=== PATIENT | male | born 1950 | race Caucasian/White ===

== ENCOUNTER 2017-05-24 01:21 | Inpatient (IN) ==
[2017-05-24] MEDS ORDERED: ONDANSETRON 4 MG/2 ML VIAL IV STA (02:04)
[2017-05-24] MEDS ORDERED: methylPREDNISolone SOD SUC 125 MG/2 ML VIAL IV STA (02:04)
[2017-05-24] MEDS ORDERED: ALBUTEROL/IPRATROPIUM 3 ML NEB RESP TX STA (02:04)
[2017-05-24] MEDS ORDERED: ASPIRIN 325 MG TABLET PO STA (02:04)
[2017-05-24] MEDS ORDERED: ASPIRIN 325 MG TABLET ONE (02:08)
[2017-05-24] MEDS ORDERED: ONDANSETRON 4 MG/2 ML VIAL ONE (02:08)
[2017-05-24] MEDS ORDERED: methylPREDNISolone SOD SUC 125 MG/2 ML VIAL ONE (02:09)
--- NOTE | 2017-05-24 02:12 | Emergency Department Note ---
IAnkur Emily, am scribing for, and in the presence of, Cheikh Veloz MD 02: 08. Magdiel Goldberg Charles R, MD, personally performed the services described in this documentation, ascribed by Muna Pascual in my presence, and it is both accurate and complete . Arrival - Arrival Limitations: No Limitations Source: Patient Time Seen by Provider: 05/24/17 01:32 - History of Present Illness HPI Narrative: Pt is a 66 y/o male who was transferred from [facility] for further evaluation of SOB that has gradually worsened over two weeks. Pt reports past and Saturday got worse and drained energy. Pt saw Dr. Vazquez on Saturday and dx with heart failure and immediately set up with appointment for Dr. Singh yesterday. Pt notes having mild chest pain yesterday with SANTIAGO while walking around trying to find the office. Pt was put on Coreg with Lasix. Pt denies having chest pain today. 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 Pt has associated sxs of orthopnea. Pt states his decline in breathing started two weeks ago and thought it was PNA. Pt stopped smoking 2 weeks when dyspnea started. Onset (ago): week(s) Consistency: constant Severity: moderate Severity scale (1-10): 6 Quality: fullness Allergies/Adverse Reactions: Allergies Allergy/AdvReac Type Severity Reaction Status Date / Time No Known Allergies Allergy Verified 05/24/17 01:32 Home Medications: Home Medications Medication Instructions Recorded Confirmed Type Carvedilol 12.5 mg PO DAILY 05/24/17 05/24/17 History Furosemide Tab [Lasix Tab] 20 mg PO DAILY 05/24/17 05/24/17 History Lisinopril 5 mg PO DAILY 05/24/17 05/24/17 History Nitroglycerin 0.4 mg SL DIRECTED PRN 05/24/17 05/24/17 History amLODIPine [Norvasc] 5 mg PO DAILY 05/24/17 05/24/17 History metFORMIN [Glucophage] 500 mg PO BID W/MEALS 05/24/17 05/24/17 History Review of System - Review of System 12 point system: reviewed and no additional remarkable complaints except as stated - Review of System Constitutional: Present: weakness (drained energy; tired). Absent: fever Respiratory: Present: respiratory distress. Absent: cough Cardiovascular: Present: chest pain (none today), dyspnea on exertion, orthopnea. Absent: syncope Gastrointestinal: Absent: abdominal pain, nausea, vomiting Musculoskeletal: Absent: arm pain, neck pain Skin: Absent: rash Neurological: Absent: headache Medical,Surgical,& Family Hx - Family History Family History: noncontributory - Social History Smoking Status: Current some day smoker (stopped smoking 2 weeks ago) Frequency of Alcohol Use: None Type of Drug Use: None Marital Status: Single Lives With:: Alone Functional capacity: independent ambulation Exam Vital Signs: Vital Signs Temperature 98.4 F 05/24/17 01:21 Pulse Rate 99 H 05/24/17 01:21 Respiratory Rate 20 05/24/17 01:21 Blood Pressure 118/89 05/24/17 01:21 O2 Sat by Pulse Oximetry 92 L 05/24/17 01:21 - General General appearance: alert, in no apparent distress - Head Head exam: Present: atraumatic, normocephalic - Eye Eye exam: Present: PERRL, EOMI - ENT ENT exam: Present: mucous membranes moist. Absent: mucous membranes dry - Neck Neck exam: Present: full ROM, trachea midline - Chest Chest inspection: Present: symmetric chest wall rise, other (barreled chest) - Respiratory Respiratory exam: Present: rales (bibasilar rales), wheezes, other (SOB after a minute of talking, stops to take deep inspiration). Absent: normal lung sounds bilaterally (not moving much air) - Cardiovascular Cardiovascular exam: Present: regular rate, normal rhythm, normal heart sounds. Absent: JVD - Extremities Exam Extremities exam: Present: full ROM. Absent: tenderness, pedal edema - Neurological Exam Neurological exam: Present: alert, oriented X3, CN II-XII intact. Absent: motor sensory deficit - Psychiatric Psychiatric exam: Present: normal affect, normal mood - Skin Skin exam: Present: warm, dry Course - Consultations Consultation #1: Hospitalist will admit patient Time: 02:12 Results - Labs Lab Results: I have reviewed the patients labs Labs: All labs from previous facility Critical Care Time Critical Care Time: Yes Total Critical Care Time: 30 Disposition Clinical Impression: Congestive heart failure, Acute exacerbation of chronic obstructive airways disease Case discussed with: patient Disposition: Still a Patient Condition: Guarded Time of Disposition: :12
[2017-05-24 02:46] LABS: Basophils % 0.2 % (0.0-0.8); Eosinophils % 0.3 % (0.00-10.9); Hematocrit 41.5 VOL% (42.0-52.0); Hemoglobin 14.3 GM/DL (14.0-18.0); Immature Granulocytes % 0.3 %; Immature Granulocytes Absolute 0.04 #; Lymphocytes # 1.2 10*3/uL (1.4-4.0); Lymphocytes % 10.4 % (21.2-54.2); Mean Corpuscular HGB Conc 34.5 GM/DL (32-36); Mean Corpuscular Hemoglobin 30 PG (27-34); Mean Corpuscular Volume 87.9 FL (87-102); Mean Platelet Volume 9.6 FL (9.6-12.0); Monocytes # 1.3 10*3/uL (0.11-0.8); Monocytes % 11.2 % (1.7-12.7); Neutrophils # 8.9 10*3/uL (1.4-7.4); Neutrophils % 77.6 % (38.7-73.9); Platelet Count 300 T/CUMM (130-400); Red Blood Count 4.72 MC/CUMM (3.8-5.5); White Blood Count 11.4 T/CUMM (4-12)
[2017-05-24 03:20] LABS: Albumin 2.9 G/DL (3.4-5.0); Bilirubin,Total 1.1 MG/DL (0.2-1.0); Calcium 8.8 MG/DL (8.5-10.1); Magnesium 1.8 MG/DL (1.8-2.4); Osmolality,Calculated 265.8 MOS/KG (273-304); Potassium 3.8 MMOL/L (3.5-5.1); Total Protein 6.9 G/DL (6.4-8.3)
[2017-05-24 03:24] LABS: Troponin I Only 0.067 NG/ML (0.00-0.045)
[2017-05-24] MEDS ORDERED: ONDANSETRON 4 MG/2 ML VIAL IV PRN (04:13)
[2017-05-24] MEDS ORDERED: NICOTINE 21 MG/24 HR PATCH TRANSDERM PRN (04:13)
[2017-05-24] MEDS ORDERED: DEXTROSE 50% 25 GM/50 ML SYRINGE IV PRN (04:13)
[2017-05-24] MEDS ORDERED: NITROGLYCERIN SL 0.4 MG TABLET SL PRN (04:13)
[2017-05-24] MEDS ORDERED: ALBUTEROL/IPRATROPIUM 3 ML NEB RESP TX PRN (04:13)
[2017-05-24] MEDS ORDERED: GLUCAGON 1 MG VIAL IM PRN (04:13)
[2017-05-24] MEDS ORDERED: MORPHINE 2 MG/1 ML SYRINGE IV PRN (04:13)
[2017-05-24] MEDS ORDERED: SODIUM CHLORIDE 0.9% 1,000 ML IV SCH (04:13)
--- NOTE | 2017-05-24 05:03 | Hospitalist History & Physical ---
Assessment and Plan (1) Congestive heart failure Status: Acute Assessment and plan: Admit to hospitalist services. Telemetry Consult cardiology. Recheck BNP, CBC, and CMP in a.m. Lipid panel in a.m. Magnesium level in a.m. Continue home blood pressure medications. See below. Aspirin 325 mg PO daily. This patient is a full code. Current Visit: Yes (2) Acute exacerbation of chronic obstructive airways disease Status: Acute Assessment and plan: O2 per unit protocol. DuoNeb Q4 hours PRN. Solumedrol 40 mg IV Q8 hours. Nicotine patch. Current Visit: Yes (3) Hypertension Status: Chronic Assessment and plan: Coreg 12.5 mg PO daily. Lisinopril 5 mg PO daily. Amlodipine 5 mg PO daily. Nitroglycerin 0.4 mg SL [id number] PRN. Current Visit: Yes (4) Diabetes mellitus Status: Chronic Assessment and plan: Accuchecks ACHS. SSI ACHS. Metformin 500 mg PO twice daily. Recheck CMP in a.m. Current Visit: Yes (5) DVT prophylaxis Status: Acute Assessment and plan: Lovenox 40 mg SQ daily. Current Visit: Yes History of Present Illness Chief complaint: Dyspnea History of present illness: Mr. Mcneil is a 66 year old male with a history of HTN, NIDDM, CABG, and CHF presented to the ED with worsening lethargy, malaise, dyspnea and shortness of breath x 2 weeks. He reports presenting to his PCP on Saturday of this week where he was newly diagnosed with CHF. He was seen Dr. Singh yesterday and was started on lasix and coreg. Today his dyspnea is much worse and he reports being unable to sleep due to feelings of "smothering". He also reports that he quit smoking 2 weeks ago due to the severity of his symptoms. Hospitalist services were consulted for further evaluation and treatment, and the patient will be admitted to the telemetry unit. Home Medications Medication Instructions Recorded Confirmed Type Carvedilol 12.5 mg PO DAILY 05/24/17 05/24/17 History Furosemide Tab [Lasix Tab] 20 mg PO DAILY 05/24/17 05/24/17 History Lisinopril 5 mg PO DAILY 05/24/17 05/24/17 History Nitroglycerin 0.4 mg SL DIRECTED PRN 05/24/17 05/24/17 History amLODIPine [Norvasc] 5 mg PO DAILY 05/24/17 05/24/17 History metFORMIN [Glucophage] 500 mg PO BID W/MEALS 05/24/17 05/24/17 History Allergies Allergy/AdvReac Type Severity Reaction Status Date / Time No Known Allergies Allergy Verified 05/24/17 01:32 Medical,Surgical,& Family Hx - Medical History Cardio: History of: CHF, Hypertension, Cardiovascular Problems Neurology: No history of: Cerebrovascular Accident, Seizures, TIA HEENT: No history of: Ear Problem, Eye Problem Endocrine: History of: Diabetes Mellitus (NIDDM) Respiratory: No history of: Asthma, COPD Renal: No history of: Renal Problems Genitourinary: No history of: Problems Gastrointestinal: No history of: GI Problems Musculoskeletal: No history of: Back/Neck Problems, Musculoskeletal Problems Hematology: No history of: Anemia, Bleeding Problems, Clotting Problems Other: No history of: Cancer - Surgical History Cardiac Surgeries: Sugical HX of: Cardiac Surgery (bypass 19 years ago) Thoracic Surgeries: Patient denies;: Organ Transplant - Family History Family History: Reports;: Family Cancer, Family Diabetes (mother), Family Heart Disease (father), Family Hypertension (father) - Social History Smoking Status: Former smoker (reports quitting 2 weeks ago due to severity of symtoms.) Have you smoked in the last 12 months: Yes Frequency of Alcohol Use: None Type of Drug Use: None Marital Status: Lives With:: Alone Functional capacity: independent ambulation 12 point system: reviewed and no additional remarkable complaints except as stated - Constitutional Constitutional: Present: lethargy, malaise. Absent: chills, fever(s) - EENT Eyes: Absent: blurry vision, diplopia, loss of vision Ears: Absent: decreased hearing, ear discharge, ear pain Nose, mouth and throat: Absent: nasal congestion, sore throat - Cardiovascular Cardiovascular: Present: chest pain with activity, dyspnea, orthopnea. Absent: chest pain at rest, edema, radiating jaw, neck or arm pain, lightheadedness, palpitations - Respiratory Respiratory: Present: dyspnea. Absent: cough, wheezing - Gastrointestinal Gastrointestinal: Present: nausea. Absent: abdominal pain, vomiting - Genitourinary Genitourinary: Absent: dysuria, nocturia, urinary frequency - Musculoskeletal Musculoskeletal: Absent: arthralgias, joint swelling, muscle weakness, myalgias - Neurological Neurological: Absent: dizziness, numbness, paresthesias, syncope - Psychiatric Psychiatric: Absent: anxiety, depression - Endocrine Endocrine: Absent: polydipsia, polyphagia, polyuria - Hematologic/Lymphatic Hematologic/Lymphatic: Absent: easy bleeding, easy bruising Exam - Constitutional Vitals: Period Temp Pulse Resp BP Sys/Valladares Pulse Ox Last 24 Hr 98.4 F-98.4 F 86-99 16-20 112-118/85-89 92-99 Exam: Constitutional System: Afebrile. Awake, alert and oriented x 3. Mild distress. No tremulousness. Head: Normocephalic, atraumatic. Ears, Nose and Throat System: No pain or tenderness. No epistaxis or discharge Eyes System: Pupils equal, round, and reactive. Extraocular muscles intact. Neck: Supple, without adenopathy, No jugular venous distention. No thyromegaly, neck mass, or prior surgery apparent. Respiratory System: Diminished throughout. Posterior rhonchi and fine rales throughout. Cardiovascular System: Heart with regular rate and rhythm. No murmur. GI System: Abdomen soft, nontender. Normo active bowel sounds present. Musculoskeletal System: Limbs with no pedal edema. Full distal pulses. Normal capillary refill. Neurological System: No discernable sensory deficit. No aphasia Psychiatric System: Conversation is rational Results - Labs CBC & BMP: 05/24/17 02:24 05/24/17 02:24 Lab Results: I have reviewed the past 24 hour labs Quality Measures - Stroke Symptom Onset Unknown: No
--- NOTE | 2017-05-24 07:13 | XRay Report ---
History short of breath Comparison 05/23/2017 The heart is enlarged Bilateral reticular and hazy upper lung zone pulmonary opacities remain with tiny effusions bilaterally. There has been no significant change. The mildly more confluent opacities in the left perihilar region remain Impression: No significant change in bilateral pulmonary opacities PROCEDURE INTERPRETED AT [facility] DEPARTMENT OF RADIOLOGY Final Report Signed by: Dr. Hailey Henderson
[2017-05-24] MEDS ORDERED: FUROSEMIDE 40 MG/4 ML VIAL IV SCH (08:00)
[2017-05-24] MEDS ORDERED: metFORMIN 500 MG TABLET PO SCH (08:00)
--- NOTE | 2017-05-24 08:02 | EKG Report ---
Stationary ECG Study [facility] ER Test Date: 05/24/2017 1:27:08 AM Pat Name: KARO JONES Department: Room: 286 Gender: M [employer] Operator: : 1950 Requested by: Cheikh Lopez Order Number: [id number] Reading MD: STEPHANIE HUTTON Intervals [place] Rate: 95 P: 75 MA: 176 QRS: -54 QRSD: 101 T: 102 QT: 367 QTc: 419 Interpretive Statements SINUS RHYTHM WITH OCCASIONAL SUPRAVENTRICULAR PREMATURE COMPLEXES LEFT ATRIAL ABNORMALITY INCOMPLETE RIGHT BUNDLE BRANCH BLOCK LEFT ANTERIOR FASCICULAR BLOCK SEPTAL MYOCARDIAL INFARCTION Electronically Signed On 05-24-17 17:23:24 CDT by STEPHANIE HUTTON [email or web address]
[2017-05-24 08:24] LABS: Troponin I Only 0.052 NG/ML (0.00-0.045)
[2017-05-24] MEDS ORDERED: amLODIPine 5 MG TABLET PO SCH (09:00)
[2017-05-24] MEDS ORDERED: ENOXAPARIN 40 MG/0.4 ML SYRINGE SUBCUT SCH (09:00)
[2017-05-24] MEDS ORDERED: FUROSEMIDE 20 MG TABLET PO SCH (09:00)
[2017-05-24] MEDS ORDERED: CARVEDILOL 12.5 MG TABLET PO SCH (09:00)
[2017-05-24] MEDS ORDERED: PANTOPRAZOLE 40 MG TABLET PO SCH (09:00)
[2017-05-24] MEDS ORDERED: LISINOPRIL 5 MG TABLET PO SCH ×2 (09:00→11:16)
[2017-05-24] MEDS ORDERED: ASPIRIN EC 325 MG TABLET PO SCH (09:00)
[2017-05-24] MEDS ORDERED: methylPREDNISolone SOD SUC 40 MG/1 ML VIAL IV SCH (10:00)
[2017-05-24] MEDS ORDERED: CARVEDILOL 6.25 MG TABLET PO SCH (11:16)
--- NOTE | 2017-05-24 11:29 | Discharge Summary ---
Hospital Course - Hospital Course Hospital Course: Mr. Mcneil is a 66 year old white male with a history of HTN, NIDDM, CABG, and CHF presented to the ED with worsening lethargy, malaise, dyspnea and shortness of breath. Pt. was a transfer from [facility]. Pt. reported that this has been ongoing for 2 weeks but worsened beginning on Saturday. Pt. denied chest pain but reported one incident of what he described as chest heaviness. Pt. reports he had to left work early this week for evaluation of symptoms. Pt. stated he was having feelings of "suffocation and smothering" while sleeping. He was seen Dr. Singh yesterday and was started on lasix and coreg. Pt's symptoms persisted. Hospitalist services were consulted for further evaluation and treatment. Patient was admitted to the telemetry unit. Cardiology was consulted to evaluate the patient. Pt. ate this morning which made him unable to have a cardiac catherization today. Pt. has been scheduled for cath on Saturday at 3pm. Pt. also been instructed to remain NPO after midnight next Saturday for cath. Changes have been made to medications. Pt. is to follow up if chest discomfort reoccurs. Pt. is stable for discharge at this time. Specialty Discharge - Follow Up or Referrals Follow up with: Ar Singh MD [Physician] - (cath on SatMay 29 at 11 am) Discharge Plan - Discharge Data Disposition: Disch To Home/Self Care Condition at Discharge: Stable Discharge Diet: diabetic diet, heart healthy Activity: other (as per DR Myers) - Discharge Medications New Carvedilol [Coreg] 6.25 mg PO DAILY #30 tablet Furosemide Tab [Lasix Tab] 40 mg PO BID DIURETIC tablet Lisinopril [Prinivil] 10 mg PO DAILY #30 tablet Spironolactone [Aldactone] 25 mg PO DAILY #30 tablet Aspirin EC Tab 81 mg PO DAILY tablet Continue metFORMIN [Glucophage] 500 mg PO BID W/MEALS Nitroglycerin 0.4 mg SL DIRECTED PRN PRN Reason: Chest Pain Discontinued amLODIPine [Norvasc] 5 mg PO DAILY Lisinopril 5 mg PO DAILY Furosemide Tab [Lasix Tab] 20 mg PO DAILY No Action Carvedilol 12.5 mg PO DAILY - Follow Up or Referral Follow Up: Ar Singh MD [Physician] - (cath on SatMay 29 at 11 am) - Forms/Instructions Instructions: Heart Failure (DC) Additional Discharge Instructions: return for cath on SaturdayMay 29 at 11am. Nothing to eat or drink after 10pm the night before. Exam - Constitutional Vitals: Period Temp Pulse Resp BP Sys/Valladares Pulse Ox Last 24 Hr 97.2 F-98.4 F 86-99 16-20 112-130/83-89 92-99 Discharge Results Procedures and tests throughout hospitalization: Pending Orders 05/25/17 04:00 XR chest 2V IN AM B-Type Natriuretic Peptide IN AM Comp Blood Count Auto Diff IN AM Comprehensive Metabolic Panel IN AM Lipid Panel IN AM Magnesium IN AM Labs on day of discharge: Labs from last 24 hours 05/24/17 05/24/17 05/24/17 11:58 08:08 07:21 WBC RBC Hgb Hct MCV MCH MCHC RDW Plt Count MPV Neut % (Auto) Lymph % (Auto) [place] % (Auto) Eos % (Auto) Baso % (Auto) Neut # (Auto) Lymph # (Auto) [place] # (Auto) Eos # (Auto) Baso # (Auto) Immature Gran % Nucleated RBC % Immature Gran # Nucleated RBCs # Immature Plt Fraction Sodium Potassium Chloride Carbon Dioxide Anion Gap BUN Creatinine GFR Calculation BUN/Creatinine Ratio Glucose POC Glucose 263 H 148 H Calculated Osmolality Calcium Magnesium Total Bilirubin AST ALT Alkaline Phosphatase Total Creatine Kinase 112 CK-MB (CK-2) 3.5 Troponin I 0.052 H D B-Natriuretic Peptide Total Protein Albumin Globulin Albumin/Globulin Ratio 05/24/17 05/24/17 05/24/17 02:24 02:24 02:24 WBC 11.4 RBC 4.72 Hgb 14.3 Hct 41.5 L MCV 87.9 MCH 30 MCHC 34.5 RDW 13.0 Plt Count 300 MPV 9.6 Neut % (Auto) 77.6 H Lymph % (Auto) 10.4 L [place] % (Auto) 11.2 Eos % (Auto) 0.3 Baso % (Auto) 0.2 Neut # (Auto) 8.9 H Lymph # (Auto) 1.2 L [place] # (Auto) 1.3 H Eos # (Auto) 0.0 Baso # (Auto) 0.0 Immature Gran % 0.3 Nucleated RBC % 0.0 Immature Gran # 0.04 Nucleated RBCs # 0.00 Immature Plt Fraction 0.0 Sodium 130 L Potassium 3.8 Chloride 94 L Carbon Dioxide 28 Anion Gap 11.8 BUN 23 H Creatinine 0.90 GFR Calculation 99 BUN/Creatinine Ratio 25.00 H Glucose 129 H POC Glucose Calculated Osmolality 265.8 L Calcium 8.8 Magnesium 1.8 Total Bilirubin 1.10 H AST 63 H ALT 41 Alkaline Phosphatase 121 H Total Creatine Kinase CK-MB (CK-2) Troponin I 0.067 H B-Natriuretic Peptide 1391 H Total Protein 6.9 Albumin 2.9 L Globulin 4.0 H Albumin/Globulin Ratio 0.7 L DS: Provider Date of admission: 05/24/17 02:05 Primary care physician: Neptali Whitman DO Attending physician on admission: Rocco Chin MD Consults: 05/24/17 04:13 Consult to Case Mgmt/Social Srvs [CONS] Routine Reason for Case Mgmt/Social Srvs: Discharge Planning Consult to Physician [CONS] Routine Comment: Congestive heart failure Consulting Provider: Cardiology - [facility] When should Consulting Provider be notified: In am Person Notified: Addie Date Notified: 05/24/17 Time Notified: 07:55 Discharging clinician: Violette Hartley MD
[2017-05-24] MEDS ORDERED: SPIRONOLACTONE 25 MG TABLET PO SCH (11:30)
--- NOTE | 2017-05-24 11:54 | EKG Report ---
Stationary ECG Study [facility] Test Date: 05/24/2017 11:51:17 AM Pat Name: KARO JONES Department: Room: 286 Gender: M Nurse Navigator: : 1950 Requested by: Cheikh Lopez Order Number: [id number] Reading MD: STEPHANIE HUTTON Intervals [place] Rate: 95 P: 90 VT: 195 QRS: -8 QRSD: 100 T: 118 QT: 369 QTc: 421 Interpretive Statements SINUS RHYTHM WITH OCCASIONAL VENTRICULAR PREMATURE COMPLEXES INCOMPLETE RIGHT BUNDLE BRANCH BLOCK ANTEROSEPTAL MYOCARDIAL INFARCTION, OF INDETERMINATE AGE LEFT ATRIAL ABNORMALITY Electronically Signed On 05-24-17 19:13:27 CDT by STEPHANIE HUTTON [email or web address]
--- NOTE | 2017-05-24 11:54 | Cardiology History & Physical ---
Chris Goldberg Lesley, FRANKIE, am scribing for, and in the presence of, Lauren Myers DO 11:50. Assessment and Plan - Time spent with patient Time spent with patient: Greater than 30 minutes (Record review, assessment, and documentation) (1) Congestive heart failure Status: Acute Current Visit: Yes Qualifiers: Congestive heart failure type: combined Congestive heart failure chronicity : acute on chronic Qualified Code(s): I50.43 - Acute on chronic combined systolic (congestive) and diastolic (congestive) heart failure (2) Hypertension Status: Chronic Current Visit: Yes Qualifiers: Hypertension type: essential hypertension Qualified Code(s): I10 - Essential (primary) hypertension (3) Diabetes mellitus Status: Chronic Current Visit: Yes Qualifiers: Diabetes mellitus type: type 2 (4) Dyslipidemia Status: Chronic Current Visit: Yes (5) CAD (coronary artery disease) Status: Chronic Current Visit: Yes (6) Mitral regurgitation Status: Chronic Current Visit: Yes Qualifiers: Cardiac valve disease etiology: nonrheumatic Qualified Code(s): I34.0 - Nonrheumatic mitral (valve) insufficiency (7) Pulmonary hypertension Status: Acute Current Visit: Yes History of Present Illness Chief complaint: Shortness of breath on exertion History of present illness: HR LEADER: Dr. Singh Mr. Mcneil is a 66 WM, who saw Dr. Singh earlier in the week. Cardiac risk factors include known CAD, dyslipidemia, hypertension, smoker (50 years up to 1 ppd), diabetes, PAD, positive family history, and new onset of heart failure. The patient reports that he had CABG performed by Dr. Hughes 19 years ago, and did see Dr. Singh at that time, but has only followed up with his primary care doctor since then. Past surgical history significant for CABG and tonsillectomy. Past medical history significant for CAD, dyslipidemia, hypertension, and PAD. He reports he was offered a bypass of the left leg blockage sometime ago which he declined. He reports he only has pain with the left leg if he walks a great distance. He reports compliance with his daily medication. The patient did see his PCP on Saturday for complaints of shortness of breath on exertion, orthopnea, and heart palpitations. Patient has a significant family history of coronary artery disease, he reports that his father of AL, his grandfather of an AL, and multiple males in his family and from heart disease. The patient did say Dr. Singh the following day where he had an EKG, echocardiogram, lab, and he was started on Coreg and Lasix. The patient reports by the following day he was so short of breath at rest, that he decided to go to the [facility] ER. The patient was treated with Lasix, oxygen, and transferred to [facility] for further care. EKG revealed sinus tachycardia. Echocardiogram done 05/22/17 revealed mildly enlarged left ventricle with severely decreased globally left ventricular systolic function. LVEF 20-25%. Right ventricular systolic function moderately decreased. Left atrial diameter mildly increased. Right atrium mildly enlarged. Mild calcification of the aortic valve noted with adequate cuspal excursion. Severe 4+ mitral regurgitation, Moderate tricuspid regurgitation, septal hugging jet is noted. Mild pulmonic regurgitation. Estimated pulmonary artery systolic pressure was 49 mmHg. Patient reports that about 2-3 weeks ago he began having difficulty sleeping due to shortness of breath. He reports that he will fall asleep and awakened suddenly feeling as if he were suffocating while lying flat. He also reports some significant malaise and fatigue that was very unusual for him. He was able to continue working during this time however he noticed he just had no energy and as his shortness of breath progressed, he made an appointment to see his primary care doctor earlier in the week. He does report that he stopped smoking when his shortness of breath occurred. He denies swelling of the extremities, cough, nausea, vomiting, or chest pain. He does report one episode of chest heaviness that occurred with exertion this past Saturday when he was walking around the campus trying to locate Dr. Singh's office. This resolved with rest and has not occurred again since. The patient denies alcohol use and confirms occasional marijuana use. The patient was seen today lying in bed, on 2 L of oxygen by nasal cannula. He is in no distress and no shortness of breath is noted during the interview. Chest x-ray shows bilateral reticular and hazy upper lung zone pulmonary opacities with tiny effusions bilaterally. EKG sinus rhythm Mildly more confluent opacities in the left perihilar region remain. Labs reviewed today: Sodium 130, creatinine 0.9, BUN 23, magnesium 1.8, potassium 3.8, AST 63, ALT 41 , alk phos 121, troponin 0 0.067 and 0.052, BNP 1391. Vital signs stable. The patient did eat a full breakfast this morning. Home Medications Medication Instructions Recorded Confirmed Type Aspirin EC Tab 81 mg PO DAILY tablet 05/24/17 Rx Carvedilol 12.5 mg PO DAILY 05/24/17 05/24/17 History Carvedilol [Coreg] 6.25 mg PO DAILY #30 tablet 05/24/17 Rx Furosemide Tab [Lasix Tab] 40 mg PO BID DIURETIC tablet 05/24/17 Rx Lisinopril [Prinivil] 10 mg PO DAILY #30 tablet 05/24/17 Rx Nitroglycerin 0.4 mg SL DIRECTED PRN 05/24/17 05/24/17 History Spironolactone [Aldactone] 25 mg PO DAILY #30 tablet 05/24/17 Rx metFORMIN [Glucophage] 500 mg PO BID W/MEALS 05/24/17 05/24/17 History Allergies Allergy/AdvReac Type Severity Reaction Status Date / Time No Known Allergies Allergy Verified 05/24/17 01:32 - Constitutional Constitutional: Present: fatigue, malaise. Absent: anorexia, chills, excessive sweating, fever(s) - EENT Eyes: Absent: blurry vision Ears: Absent: decreased hearing Nose, mouth and throat: Absent: epistaxis, headache(s) - Cardiovascular Cardiovascular: Present: chest pain with activity, dyspnea, dyspnea on exertion , orthopnea, palpitations - Respiratory Respiratory: Present: dyspnea, dyspnea on exertion. Absent: cough, hemoptysis, wheezing - Gastrointestinal Gastrointestinal: Absent: abdominal pain, change in bowel habits, coffee ground emesis, dyspepsia, dysphagia, hematemesis, melena, nausea - Genitourinary Genitourinary: Absent: difficulty urinating - Musculoskeletal Musculoskeletal: Absent: arthralgias, back pain - Neurological Neurological: Absent: abnormal gait, abnormal speech, behavioral changes, confusion, dizziness - Psychiatric Psychiatric: Absent: anxiety, confusion - Endocrine Endocrine: Present: fatigue. Absent: cold intolerance - Hematologic/Lymphatic Hematologic/Lymphatic: Absent: easy bleeding Medical,Surgical,& Family Hx - Medical History Cardio: History of: CHF, CAD (CABG at age 47), Hypertension, PVD, Cardiovascular Problems Neurology: No history of: Cerebrovascular Accident, Seizures, TIA HEENT: No history of: Ear Problem, Eye Problem Endocrine: History of: Diabetes Mellitus (NIDDM) Respiratory: No history of: Asthma, COPD Renal: No history of: Renal Problems Genitourinary: No history of: Problems Gastrointestinal: No history of: GI Problems Musculoskeletal: No history of: Back/Neck Problems, Musculoskeletal Problems Hematology: No history of: Anemia, Bleeding Problems, Clotting Problems Other: No history of: Cancer - Surgical History Cardiac Surgeries: Sugical HX of: Cardiac Surgery (bypass 19 years ago) Thoracic Surgeries: Patient denies;: Organ Transplant - Family History Family History: Reports;: Family Cancer, Family Diabetes (mother), Family Heart Disease (father), Family Hypertension (father) - Social History Smoking Status: Former smoker (reports quitting 2 weeks ago due to severity of symtoms.) Have you smoked in the last 12 months: Yes Time spent discussing smoking cessation with patient: 3 to 10 minutes Frequency of Alcohol Use: None Type of Drug Use: Marijuana (Occasional) Marital Status: Lives With:: Alone Functional capacity: independent ambulation Cardiology Physical Exam - Constitutional Vitals: Vital Signs Temp Pulse Resp BP Pulse Ox 97.4 F L 93 H 18 130/86 98 05/24/17 08:00 05/24/17 08:00 05/24/17 08:00 05/24/17 08:00 05/24/17 08:00 Intake and Output 05/23/17 05/24/17 05/24/17 23:59 07:59 15:59 Intake Total 50 / 50 Balance 50 / 50 Intake: Oral 50 / 50 Other: Voiding Method Urinal Weight 177 lb 4 oz Patient Weight 05/24/17 23:59 Weight 177 lb 4 oz Exam: General: [Appears well with no apparent distress.] [Pleasant and cooperative. ] [Appears comfortable.] HEENT: [PERRL, normocephalic, atraumatic]. [Mucous membranes moist.] [No jaundice noted.] [Conjunctiva moist and clear, sclerae anicteric.] Neck: [JVD to about 8 cm H20, no thyromegaly or lymphadenopathy noted.] [ No carotid bruit appreciated.] Cardiac: [Regular rate and rhythm.] 3/6 murmur of mitral regurgitation to the axilla] [PMI is displaced and enlarged, No thrill. He has an S4 but I don't hear an S3] Lungs: [Scant bibasilar rales, greater on the right] Abdomen: [Soft, bowel sounds normoactive.] [Nontender and nondistended.] [No abdominal bruit or thrill noted.] [No masses noted.] Musculoskeletal: [No fluid collection.] [Full range of motion is noted.] Extremities: [No clubbing, cyanosis noted.] [ Trace edema .] [Upper extremity pulses 2+.] [Lower extremity pulses 2+ in right lower extremity, barely palpable in left.] [Capillary refill less than 3 seconds.] Skin: [No unusual lesions or rashes.] [No skin breakdown appreciated.] Neuro: [Awake, alert and oriented 3.] [Moves all extremities well without hemiparesis or paralysis.] [No essential tremor is appreciated.] Result/EKG - Labs CBC & BMP: 05/24/17 02:24 05/24/17 02:24 Lab Results: I have reviewed the past 24 hour labs Labs: Laboratory Results - last 24 hr 05/24/17 05/24/17 05/24/17 02:24 02:24 02:24 WBC 11.4 RBC 4.72 Hgb 14.3 Hct 41.5 L MCV 87.9 MCH 30 MCHC 34.5 RDW 13.0 Plt Count 300 MPV 9.6 Neut % (Auto) 77.6 H Lymph % (Auto) 10.4 L [place] % (Auto) 11.2 Eos % (Auto) 0.3 Baso % (Auto) 0.2 Neut # (Auto) 8.9 H Lymph # (Auto) 1.2 L [place] # (Auto) 1.3 H Eos # (Auto) 0.0 Baso # (Auto) 0.0 Immature Gran % 0.3 Nucleated RBC % 0.0 Immature Gran # 0.04 Nucleated RBCs # 0.00 Immature Plt Fraction 0.0 Sodium 130 L Potassium 3.8 Chloride 94 L Carbon Dioxide 28 Anion Gap 11.8 BUN 23 H Creatinine 0.90 GFR Calculation 99 BUN/Creatinine Ratio 25.00 H Glucose 129 H POC Glucose Calculated Osmolality 265.8 L Calcium 8.8 Magnesium 1.8 Total Bilirubin 1.10 H AST 63 H ALT 41 Alkaline Phosphatase 121 H Total Creatine Kinase CK-MB (CK-2) Troponin I 0.067 H B-Natriuretic Peptide 1391 H Total Protein 6.9 Albumin 2.9 L Globulin 4.0 H Albumin/Globulin Ratio 0.7 L 05/24/17 05/24/17 07:21 08:08 WBC RBC Hgb Hct MCV MCH MCHC RDW Plt Count MPV Neut % (Auto) Lymph % (Auto) [place] % (Auto) Eos % (Auto) Baso % (Auto) Neut # (Auto) Lymph # (Auto) [place] # (Auto) Eos # (Auto) Baso # (Auto) Immature Gran % Nucleated RBC % Immature Gran # Nucleated RBCs # Immature Plt Fraction Sodium Potassium Chloride Carbon Dioxide Anion Gap BUN Creatinine GFR Calculation BUN/Creatinine Ratio Glucose POC Glucose 148 H Calculated Osmolality Calcium Magnesium Total Bilirubin AST ALT Alkaline Phosphatase Total Creatine Kinase 112 CK-MB (CK-2) 3.5 Troponin I 0.052 H D B-Natriuretic Peptide Total Protein Albumin Globulin Albumin/Globulin Ratio - Diagnostic Findings Procedure: Chest x-ray: report reviewed by me - EKG EKG results: interpreted by me, sinus rhythm Quality Measures - Stroke Symptom Onset Unknown: No I, Lauren Myers, , personally performed the services described in this documentation, ascribed by Rupa Perez NP in my presence, and it is both accurate and complete 153 .
[2017-05-24 12:21] VITALS: BP 126/83
[2017-05-24] MEDS: INSULIN REGULAR 100 UNIT/ML SUBCUT SCH ×2 (12:25→14:38)
[2017-05-24] MEDS ORDERED: FUROSEMIDE 40 MG TABLET PO SCH (16:00)
[2017-05-25] MEDS ORDERED: ASPIRIN EC 81 MG TABLET PO SCH (09:00)
== END 2017-05-24 15:46 | disposition home or self-care (01) | DRG 292 ==
LOC: EDUNIT# → N.ED 01:21 → N.EDINP 02:05 → SUATTDRO 02:05 → N.TELEN 02:46
PROVIDERS: ADMIT Internal Medicine; ATTEND Internal Medicine

== ENCOUNTER 2017-05-25 19:00 | Inpatient (IN) ==
[2017-05-25] MEDS ORDERED: FUROSEMIDE 40 MG/4 ML VIAL IV STA ×2 (19:23→20:38)
[2017-05-25] MEDS ORDERED: NITROGLYCERIN 2% OINT 1 INCH/GM PACK TOP STA (19:23)
[2017-05-25] MEDS ORDERED: ONDANSETRON 4 MG/2 ML VIAL IV STA (19:23)
--- NOTE | 2017-05-25 19:30 | Emergency Department Note ---
Arrival - Arrival Chief Complaint: Shortness of Breath Stated Complaint: SOB,WEAK,CHF ED Nursing Triage Note: Patient to triage with c/o worsening SOB from CHF. Patient esd just D/C from hospital yesterday where he was being treated for the same c/o. Patient is scheduled for a heart cath on saturday. EKG done in triage. denies CP. Mode of Arrival: Wheelchair Limitations: No Limitations Source: Patient Time Seen by Provider: 05/25/17 19:23 - History of Present Illness HPI Narrative: This 66-year-old white male presents 24 hours after discharge from this institution after admission for progressive congestive heart failure and weakness. The patient was discharged in stable condition after adjustment of medication with catheterization planned for next week. The patient returns with the same complaints, stating that he is smothering and extraordinarily weak and cannot tolerate it at home. Likewise, the patient describes an intermittent central chest burning not associated with heartburn, belching, water brash, nausea, vomiting, or diaphoresis. At rest in bed he appears in no acute distress. Onset (ago): week(s) (Patient presents 2 weeks post onset of symptoms) Allergies/Adverse Reactions: Allergies Allergy/AdvReac Type Severity Reaction Status Date / Time No Known Allergies Allergy Verified 05/25/17 19:11 Home Medications: Home Medications Medication Instructions Recorded Confirmed Type Furosemide Tab [Lasix Tab] 40 mg PO BID DIURETIC tablet 05/24/17 05/25/17 Rx Nitroglycerin 0.4 mg SL DIRECTED PRN 05/24/17 05/25/17 History metFORMIN [Glucophage] 500 mg PO BID W/MEALS 05/24/17 05/25/17 History Aspirin EC Tab 81 mg PO QAM 05/25/17 05/25/17 History Carvedilol [Coreg] 6.25 mg PO QAM 05/25/17 05/25/17 History Lisinopril [Prinivil] 10 mg PO QAM 05/25/17 05/25/17 History Spironolactone [Aldactone] 25 mg PO QAM 05/25/17 05/25/17 History Review of System - Review of System 12 point system: reviewed and no additional remarkable complaints except as stated - Review of System Constitutional: Present: as per HPI Respiratory: Present: as per HPI Cardiovascular: Present: as per HPI Gastrointestinal: Present: as per HPI Medical,Surgical,& Family Hx - Medical History Cardio: History of: Cardiovascular Problems Neurology: No history of: Cerebrovascular Accident, Seizures, TIA HEENT: No history of: Ear Problem, Eye Problem Respiratory: No history of: Asthma, COPD Renal: No history of: Renal Problems Genitourinary: No history of: Problems Gastrointestinal: No history of: GI Problems Musculoskeletal: No history of: Back/Neck Problems, Musculoskeletal Problems Hematology: No history of: Anemia, Bleeding Problems, Clotting Problems Other: No history of: Cancer - Surgical History Cardiac Surgeries: Sugical HX of: Cardiac Surgery (bypass 19 years ago) Thoracic Surgeries: Patient denies;: Organ Transplant - Family History Family History: Reports;: Family Cancer, Family Diabetes (mother), Family Heart Disease (father), Family Hypertension (father) - Social History Smoking Status: Current every day smoker Frequency of Alcohol Use: None Type of Drug Use: None Exam Physical Examination: GENERAL: Well developed, well nourished white male in no acute distress. HEENT: Normocephalic. No trauma. Moist mucous membranes. EOMI. PERRLA. ENT NML NECK: Supple. No adenopathy. CARDIAC: Regular. No murmurs. Heart rate 95 CHEST: Bibasilar inspiratory rales. No respiratory distress. O2 sat 89% ABDOMEN: Soft. Nontender. Active bowel sounds. EXTREMITIES: No trauma. Normal ROM. No pedal edema. SKIN: No diaphoresis. No rash. NEURO: Alert. Neuro intact no focal deficits. Vital Signs: Vital Signs Temperature 98.5 F 05/25/17 19:07 Pulse Rate 90 05/25/17 20:50 Respiratory Rate 20 05/25/17 20:50 Blood Pressure 110/81 05/25/17 19:07 O2 Sat by Pulse Oximetry 99 05/25/17 20:50 Course - Reevaluation(s) Reevaluation #1: Patient advised that he was still in congestive failure and with abnormalities of cardiac enzymes and possible super infecting pneumonia he would would warrant hospitalization - Consultations Consultation #1: Discussed with the hospitalist service who will admit for further evaluation treatment. Results - Labs CBC & BMP: 05/25/17 19:24 05/25/17 19:24 Labs: I have reviewed the laboratory noted the elevated white blood cell count, greatly elevated BMP, and bump in troponins. - Diagnostic Findings Procedure: Chest x-ray: image reviewed by me, report reviewed by me ( Cardiomegaly with bilateral infiltrates consistent with edema versus infection) Disposition Clinical Impression: Congestive heart failure, Abnormal cardiac enzymes, Pneumonia Case discussed with: patient, patient's family Disposition: Still a Patient Condition: Guarded Time of Disposition: 21:05
[2017-05-25] MEDS ORDERED: NITROGLYCERIN 2% OINT 1 INCH/GM PACK TOP ONE (19:46)
[2017-05-25] MEDS ORDERED: FUROSEMIDE 40 MG/4 ML VIAL ONE ×2 (19:46→21:33)
[2017-05-25] MEDS ORDERED: ONDANSETRON 4 MG/2 ML VIAL ONE (19:46)
[2017-05-25 19:49] LABS: Basophils % 0.1 % (0.0-0.8); Eosinophils % 0.2 % (0.00-10.9); Hematocrit 38.4 VOL% (42.0-52.0); Hemoglobin 13.4 GM/DL (14.0-18.0); Immature Granulocytes % 0.4 %; Immature Granulocytes Absolute 0.08 #; Lymphocytes # 1.4 10*3/uL (1.4-4.0); Lymphocytes % 7.5 % (21.2-54.2); Mean Corpuscular HGB Conc 34.9 GM/DL (32-36); Mean Corpuscular Hemoglobin 30 PG (27-34); Mean Corpuscular Volume 86.9 FL (87-102); Mean Platelet Volume 9.8 FL (9.6-12.0); Monocytes # 1.9 10*3/uL (0.11-0.8); Monocytes % 10.6 % (1.7-12.7); Neutrophils # 14.5 10*3/uL (1.4-7.4); Neutrophils % 81.2 % (38.7-73.9); Platelet Count 323 T/CUMM (130-400); Red Blood Count 4.42 MC/CUMM (3.8-5.5); Red Cell Distribution Width 13.2 % (9.3-17.3); White Blood Count 17.9 T/CUMM (4-12)
--- NOTE | 2017-05-25 19:59 | XRay Report ---
Exam: XR chest 2V Date: 05/25/2017 7:24 PM Indication: Chest pain Comparison: 05/24/2017 Technical: PA lateral views Findings: Cardiomegaly is present with previous sternotomy. External cardiac leads oxygen tubing are present. ASVD is present. Alveolar interstitial densities are present in the lung dacosta bilaterally with fluid along the minor and major fissures and low volume effusions present. Impression: 1. Cardiomegaly with persistent low volume effusions and bilateral pulmonary alveolar infiltrates and/or edema left greater than right but present bilaterally 2. Overall Little change has occurred 3. Previous sternotomy PROCEDURE INTERPRETED AT [facility] DEPARTMENT OF RADIOLOGY Final Report Signed by: Dr. Carroll Lima
[2017-05-25 20:09] LABS: Bilirubin,Total 0.8 MG/DL (0.2-1.0); Calcium 8.7 MG/DL (8.5-10.1); Osmolality,Calculated 266.9 MOS/KG (273-304); Potassium 4.2 MMOL/L (3.5-5.1); Total Protein 6.1 G/DL (6.4-8.3)
[2017-05-25 20:11] LABS: INR 1.1; PT Patient Result 11.9 SECS; Troponin I Only 0.078 NG/ML (0.00-0.045)
[2017-05-25] MEDS ORDERED: cefTRIAXone 1,000 MG in SODIUM CHLORIDE 0.9% 100 ML IV STA (20:38)
[2017-05-25] MEDS ORDERED: ALBUTEROL/IPRATROPIUM 3 ML NEB RESP TX STA ×2 (20:38→23:16)
[2017-05-25] MEDS ORDERED: SODIUM CHLORIDE 0.9% 100 ML IV ONE (21:34)
[2017-05-25] MEDS ORDERED: cefTRIAXone 1,000 MG VIAL ONE (21:34)
--- NOTE | 2017-05-25 21:50 | Hospitalist History & Physical ---
<Izabella Olson - Last Filed: 05/25/17 22:03> Assessment and Plan - Time spent with patient Time spent with patient: Greater than 30 minutes (1) Dyspnea Status: Acute Assessment and plan: We will continue to support patient with oxygen while diuresing him with scheduled Lasix. Current Visit: Yes (2) Congestive heart failure Status: Chronic Assessment and plan: We will reconsult cardiology for patient to have a sooner cardiac cath. Troponin elevated 0.078. He will continue his home blood pressure medications and draw serial cardiac enzymes. Current Visit: Yes Qualifiers: Congestive heart failure type: combined Congestive heart failure chronicity : acute on chronic Qualified Code(s): I50.43 - Acute on chronic combined systolic (congestive) and diastolic (congestive) heart failure (3) Diabetes mellitus Status: Chronic Assessment and plan: Glucose 160. HgbA1c 6.6. We will continue on Metformin, have blood glucoses checked ACHS. Current Visit: No Qualifiers: Diabetes mellitus type: type 2 (4) Hypertension Status: Chronic Assessment and plan: Continue anti-hypertensive medications as directed. Current Visit: No Qualifiers: Hypertension type: essential hypertension Qualified Code(s): I10 - Essential (primary) hypertension (5) Hospital-acquired pneumonia Status: Acute Assessment and plan: Pending blood and urine cultures. WBC 17.9. We will start patient on Zosyn 3.375g until cultures have returned. Monitor for fever. Current Visit: Yes History of Present Illness Chief complaint: weakness and feeling smothered History of present illness: Called to the ER for Mr. Mcneil who is a 66 year old male that was discharged home yesterday. He was admitted for new onset CHF, cardiology was consulted, and started on Lasix, Coreg, Spironolactone, ASA, and Lisinopril. He has a scheduled cardiac cath for next Saturday with Dr. Singh. He was unable to receive an inpatient cardiac cath due to eating a meal. Today, patient has had increasingly trouble breathing and felt more fatigued today. He states he has not had an appetite and admits to some nausea. He decided to return to [place] ER because he did not think he could wait till Saturday for his appointment. In the ER he received Lasix 40mg IV x2 doses, Zofran 4mg IV, Albuterol breathing treatment, and 1/2 inch of Nitro paste. He had an elevated WBC count so blood and urine cultures were drawn. He was covered with Rocephin 1 gram IV. BNP 1151. Na 120. He will be admitted into the hospital where he will be continued to be diuresed. We will start Zosyn until blood and urine cultures return for possible pneumonia. Home Medications Medication Instructions Recorded Confirmed Type Furosemide Tab [Lasix Tab] 40 mg PO BID DIURETIC tablet 05/24/17 05/25/17 Rx Nitroglycerin 0.4 mg SL DIRECTED PRN 05/24/17 05/25/17 History metFORMIN [Glucophage] 500 mg PO BID W/MEALS 05/24/17 05/25/17 History Aspirin EC Tab 81 mg PO QAM 05/25/17 05/25/17 History Carvedilol [Coreg] 6.25 mg PO QAM 05/25/17 05/25/17 History Lisinopril [Prinivil] 10 mg PO QAM 05/25/17 05/25/17 History Spironolactone [Aldactone] 25 mg PO QAM 05/25/17 05/25/17 History Allergies Allergy/AdvReac Type Severity Reaction Status Date / Time No Known Allergies Allergy Verified 05/25/17 19:11 Medical,Surgical,& Family Hx - Medical History Cardio: History of: Cardiovascular Problems Psychological: No history of: Psychiatric Problems Neurology: No history of: Cerebrovascular Accident, Seizures, TIA HEENT: No history of: Ear Problem, Eye Problem Endocrine: History of: Diabetes Mellitus (NIDDM) Respiratory: No history of: Asthma, COPD Renal: No history of: Renal Problems Genitourinary: No history of: Problems Gastrointestinal: No history of: GI Problems Musculoskeletal: No history of: Back/Neck Problems, Musculoskeletal Problems Hematology: No history of: Anemia, Bleeding Problems, Clotting Problems Other: No history of: Cancer - Surgical History Cardiac Surgeries: Sugical HX of: Cardiac Surgery (bypass 19 years ago) Thoracic Surgeries: Patient denies;: Organ Transplant - Family History Family History: Reports;: Family Cancer, Family Diabetes (mother), Family Heart Disease (father), Family Hypertension (father) - Social History Smoking Status: Current every day smoker Frequency of Alcohol Use: None Type of Drug Use: None Marital Status: Lives With:: Spouse Functional capacity: independent ambulation - Constitutional Constitutional: Present: anorexia, chills, fatigue. Absent: fever(s), night sweats - Respiratory Respiratory: Absent: cough, dyspnea, dyspnea on exertion - Gastrointestinal Gastrointestinal: Present: nausea. Absent: abdominal pain, change in bowel habits, constipation, diarrhea, vomiting - Genitourinary Genitourinary: Absent: difficulty urinating - Musculoskeletal Musculoskeletal: Absent: back pain - Neurological Neurological: Absent: dizziness Exam - Constitutional Vitals: Period Temp Pulse Resp BP Sys/Valladares Pulse Ox Last 24 Hr 98.5 F-98.5 F 89-95 20-24 110-110/81-81 89-99 General appearance: normal weight, other (ill appearing) - Head Head exam: Present: normal inspection, normocephalic, atraumatic - Eye Eye exam: Present: EOMI Pupils: Present: [place] - ENT ENT exam: Present: normal exam - Neck Neck exam: Present: normal inspection - Respiratory Respiratory exam: Present: clear to auscultation bilaterally. Absent: accessory muscle use (Respirations even and non-labored. Symmetrical rise and fall of chest noted. ) - Cardiovascular Cardiovascular exam: Present: regular rate and rhythm (occasional PVC), other ( sternal scar) - GI/Abdominal GI/Abdominal exam: Present: normal bowel sounds, soft. Absent: distended, firm - Extremities Exam Extremities exam: Present: normal inspection, normal capillary refill, other ( scar on medial aspect of lower left leg) - Back Exam Back exam: Present: normal inspection - Neurological Exam Neurological exam: Present: alert, oriented X3 - Psychiatric Psychiatric exam: Present: normal affect, normal mood - Skin Skin exam: Present: normal color, warm, dry Results - Labs CBC & BMP: 05/25/17 19:24 05/25/17 19:24 Lab Results: I have reviewed the past 24 hour labs - Diagnostic Findings Procedure: Chest x-ray: report reviewed by me (Cardiomegaly. Bilateral pul infiltreates) <Krystina Ferguson - Last Filed: 05/26/17 06:27> History of Present Illness History of present illness: Mr. Mcneil is a 66 year old male with multiple medical issues who was recently dcd from our service after being treated for pneumonia and was scheduled for an outpt cath presents to the ER with worsening SOB, CXR showed bilateral infiltrates.We are admitting for CHF exacerbation vs pneumonia-this will be treated as hospital acquired.Patient was seen, examined and discussed with the HOOKER OPERATOR. We will call Cardiology to see. Tele cardiac enzymes IV diuretics, antibiotics Echo nebs, ACEI, bblockers,ASA, o2 BC,sc Continue other management. Exam - Constitutional Vitals: Period Temp Pulse Resp BP Sys/Valladares Pulse Ox Last 24 Hr 96.8 F-98.5 F 89-95 16-24 102-130/64-81 89-100 Results - Labs CBC & BMP: 05/26/17 05:03 05/25/17 19:24
[2017-05-25] MEDS ORDERED: GLUCAGON 1 MG VIAL IM PRN (23:16)
[2017-05-25] MEDS ORDERED: NITROGLYCERIN SL 0.4 MG TABLET SL PRN (23:16)
[2017-05-25] MEDS ORDERED: DEXTROSE 50% 25 GM/50 ML SYRINGE IV PRN (23:16)
[2017-05-25] MEDS ORDERED: ACETAMINOPHEN 325 MG TABLET PO PRN (23:16)
[2017-05-25] MEDS ORDERED: ONDANSETRON 4 MG/2 ML VIAL IV PRN (23:16)
[2017-05-25] MEDS ORDERED: NICOTINE 21 MG/24 HR PATCH TRANSDERM PRN (23:16)
[2017-05-25] MEDS: ENOXAPARIN 40 MG/0.4 ML SYRINGE SUBCUT SCH (23:55)
[2017-05-25] MEDS: PIPERACILLIN/TAZOBACTAM 3,375 MG in SODIUM CHLORIDE 0.9% 100 ML IV SCH (23:55)
[2017-05-26 00:41] LABS: Free T4 (Free Thyroxine) 1.27 NG/DL (0.76-1.46)
[2017-05-26 00:42] LABS: Troponin I Only 0.065 NG/ML (0.00-0.045)
[2017-05-26 05:51] LABS: Basophils % 0.1 % (0.0-0.8); Eosinophils # 0.1 10*3/uL (0.0-0.87); Eosinophils % 0.4 % (0.00-10.9); Hematocrit 39.3 VOL% (42.0-52.0); Hemoglobin 13.4 GM/DL (14.0-18.0); Immature Granulocytes % 0.7 %; Immature Granulocytes Absolute 0.09 #; Lymphocytes # 1.4 10*3/uL (1.4-4.0); Mean Corpuscular HGB Conc 34.1 GM/DL (32-36); Mean Corpuscular Hemoglobin 30 PG (27-34); Mean Corpuscular Volume 88.5 FL (87-102); Mean Platelet Volume 9.8 FL (9.6-12.0); Monocytes # 1.5 10*3/uL (0.11-0.8); Monocytes % 12.2 % (1.7-12.7); Neutrophils # 9.5 10*3/uL (1.4-7.4); Neutrophils % 75.6 % (38.7-73.9); Platelet Count 306 T/CUMM (130-400); Red Blood Count 4.44 MC/CUMM (3.8-5.5); Red Cell Distribution Width 13.1 % (9.3-17.3); White Blood Count 12.6 T/CUMM (4-12)
[2017-05-26 06:02] LABS: Apearance,Urine CLEAR (Clear); Bilirubin,Urine Negative (Negative); Blood, Urine Small mg/dL (Negative); Glucose,Urine (UA) Negative (Negative); Ketones,Urine Negative (Negative); Mucus,Urine Occasional /LPF (Occasional); Nitrite,Urine Negative (Negative); Protein,Urine Negative; Urine Color Yellow (Yellow); Urine Specific Gravity 1.012 (1.001-1.035)
[2017-05-26 06:21] LABS: Troponin I Only 0.091 NG/ML (0.00-0.045)
[2017-05-26 06:27] LABS: Albumin 2.8 G/DL (3.4-5.0); Calcium 8.6 MG/DL (8.5-10.1); Osmolality,Calculated 271.5 MOS/KG (273-304); Potassium 4.4 MMOL/L (3.5-5.1); Risk Ratio 4.22; VLDL CHOLESTEROL 20.8 MG/DL
--- NOTE | 2017-05-26 07:53 | EKG Report ---
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
[2017-05-26] MEDS: metFORMIN 500 MG TABLET PO SCH ×2 (09:05→17:00)
[2017-05-26] MEDS: SPIRONOLACTONE 25 MG TABLET PO SCH (09:05)
[2017-05-26] MEDS: CARVEDILOL 6.25 MG TABLET PO SCH (09:05)
[2017-05-26] MEDS: PIPERACILLIN/TAZOBACTAM 3,375 MG in SODIUM CHLORIDE 0.9% 100 ML IV SCH ×2 (09:06→17:00)
[2017-05-26] MEDS: LISINOPRIL 10 MG TABLET PO SCH (09:06)
[2017-05-26] MEDS: FUROSEMIDE 40 MG/4 ML VIAL IV SCH ×2 (09:06→17:00)
[2017-05-26] MEDS: ASPIRIN EC 81 MG TABLET PO SCH (09:06)
[2017-05-26] MEDS: PANTOPRAZOLE 40 MG TABLET PO SCH (09:06)
[2017-05-26] MEDS: INSULIN REGULAR 100 UNIT/ML SUBCUT SCH ×4 (09:07→21:41)
--- NOTE | 2017-05-26 10:14 | Cardiology Consult Note ---
Assessment and Plan - Time spent with patient Time spent with patient: Greater than 30 minutes (1) Cardiomyopathy Status: Acute Assessment and plan: Newly diagnosed Current Visit: Yes (2) Congestive heart failure Status: Chronic Current Visit: Yes Qualifiers: Congestive heart failure type: combined Congestive heart failure chronicity : acute on chronic Qualified Code(s): I50.43 - Acute on chronic combined systolic (congestive) and diastolic (congestive) heart failure (3) Dyspnea on exertion Status: Chronic Current Visit: No (4) Pulmonary hypertension Status: Chronic Assessment and plan: Most likely from his MR Current Visit: No (5) CAD (coronary artery disease) Status: Chronic Current Visit: No Qualifiers: Coronary Disease-Associated Artery/Lesion type: [place] artery [place] vs. transplanted heart: [place] heart Associated angina: without angina Qualified Code(s): I25.10 - Atherosclerotic heart disease of [place] coronary artery without angina pectoris (6) Diabetes mellitus Status: Chronic Current Visit: No Qualifiers: Diabetes mellitus type: type 2 (7) Dyslipidemia Status: Chronic Current Visit: No (8) Hypertension Status: Chronic Current Visit: No Qualifiers: Hypertension type: essential hypertension Qualified Code(s): I10 - Essential (primary) hypertension (9) Mitral regurgitation Status: Chronic Current Visit: No Qualifiers: Cardiac valve disease etiology: nonrheumatic Qualified Code(s): I34.0 - Nonrheumatic mitral (valve) insufficiency History of Present Illness - Data of Consult Patient: known to practice within the last 3 years Consult date: 05/26/17 Requesting Physician: Krystina Ferguson Primary care physician: Neptali lr) - Consult Narrative Reason for consult: heart failure History of present illness: Mr. Mcneil is a 66 year old male who saw Dr. Singh earlier in the week after seeing his primary care physician. He subsequently came to the emergency room on was seen and evaluated on Saturday by cardiology (me) in the inpatient setting and had medication adjustments and set up for left heart catheterization on Saturday of this week. Cardiac risk factors include known CAD, dyslipidemia, hypertension, smoker (50 years up to 1 ppd), diabetes, PAD, positive family history, and new onset of heart failure. The patient reports that he had CABG performed by Dr. Hughes 19 years ago, and did see Dr. Singh at that time, but has only followed up with his primary care doctor since then. Past surgical history significant for CABG and tonsillectomy. Past medical history significant for CAD, dyslipidemia, hypertension, and PAD. He reports he was offered a bypass of the left leg blockage sometime ago which he declined. He reports he only has pain with the left leg if he walks a great distance. He reports compliance with his daily medication. The patient did see his PCP on Saturday for complaints of shortness of breath on exertion, orthopnea, and heart palpitations. Patient has a significant family history of coronary artery disease, he reports that his father of MS, his grandfather of an MS, and multiple males in his family and from heart disease. The patient did say Dr. Singh the following day where he had an EKG, echocardiogram, lab, and he was started on Coreg and Lasix. The patient reports by the following day he was so short of breath at rest, that he decided to go to the [facility] ER. The patient was treated with Lasix, oxygen, and transferred to [facility] for further care. EKG revealed sinus tachycardia. Echocardiogram done 05/22/17 revealed mildly enlarged left ventricle with severely decreased globally left ventricular systolic function. LVEF 20-25%. Right ventricular systolic function moderately decreased. Left atrial diameter mildly increased. Right atrium mildly enlarged. Mild calcification of the aortic valve noted with adequate cuspal excursion. Severe 4+ mitral regurgitation, Moderate tricuspid regurgitation, septal hugging jet is noted. Mild pulmonic regurgitation. Estimated pulmonary artery systolic pressure was 49 mmHg. Patient reports that about 2-3 weeks ago he began having difficulty sleeping due to shortness of breath. He reports that he will fall asleep and awakened suddenly feeling as if he were suffocating while lying flat. He also reports some significant malaise and fatigue that was very unusual for him. He was able to continue working during this time however he noticed he just had no energy and as his shortness of breath progressed, he made an appointment to see his primary care doctor earlier in the week. He does report that he stopped smoking when his shortness of breath occurred. He denies swelling of the extremities, cough, nausea, vomiting, or chest pain. He does report one episode of chest heaviness that occurred with exertion this past Saturday when he was walking around the campus trying to locate Dr. Singh's office. The patient denies alcohol use and confirms occasional marijuana use. The patient was discharged home Saturday afternoon after significant change to his medication regimen. He went home and felt good on Saturday and most of the day Saturday and then since Saturday night he states that he felt like he thought he might be about to start to feel like he felt on so he came to the hospital for admission. He states that he cannot wait till Saturday to get his heart cath. He seems extremely anxious he has also had some productive sputum that he describes as "dark". He was given Ancef and now is currently on Zosyn. I saw and examined the patient again today. I saw him on Saturday. He states that he has been compliant with his medications. The patient was told at discharge that if he had chest pain or worsening symptoms to come back. He states that they did did not necessarily worsened but he thought they were about to worsen he did not want to take a chance. CC: Tao Pisano MD - Home Medications and Allergies Home Medications: Home Medications Medication Instructions Recorded Confirmed Type Furosemide Tab [Lasix Tab] 40 mg PO BID DIURETIC tablet 05/24/17 05/25/17 Rx Nitroglycerin 0.4 mg SL DIRECTED PRN 05/24/17 05/25/17 History metFORMIN [Glucophage] 500 mg PO BID W/MEALS 05/24/17 05/25/17 History Aspirin EC Tab 81 mg PO QAM 05/25/17 05/25/17 History Carvedilol [Coreg] 6.25 mg PO QAM 05/25/17 05/25/17 History Lisinopril [Prinivil] 10 mg PO QAM 05/25/17 05/25/17 History Spironolactone [Aldactone] 25 mg PO QAM 05/25/17 05/25/17 History Allergies/Adverse Reactions: Allergies Allergy/AdvReac Type Severity Reaction Status Date / Time No Known Allergies Allergy Verified 05/25/17 19:11 - Constitutional Constitutional: Present: weakness. Absent: anorexia, chills, weight gain, weight loss - EENT Eyes: Absent: diplopia Ears: Absent: decreased hearing Nose, mouth and throat: Absent: dysphagia, lip swelling, nasal congestion - Cardiovascular Cardiovascular: Present: chest pain at rest, dyspnea, dyspnea on exertion, orthopnea. Absent: edema - Respiratory Respiratory: Present: cough, dyspnea, dyspnea on exertion - Gastrointestinal Gastrointestinal: Absent: abdominal pain, dyspepsia - Genitourinary Genitourinary: Absent: difficulty urinating, dysuria, flank pain, hematuria - Musculoskeletal Musculoskeletal: Present: arthralgias. Absent: joint swelling - Neurological Neurological: Absent: abnormal gait, abnormal speech, behavioral changes, confusion, convulsions, disequilibrium, focal weakness, frequent falls, headache (s), paresthesias, syncope - Psychiatric Psychiatric: Present: anxiety, depression. Absent: auditory hallucinations, panic attacks, suicidal ideation, visual hallucinations - Endocrine Endocrine: Absent: cold intolerance, heat intolerance - Hematologic/Lymphatic Hematologic/Lymphatic: Absent: easy bleeding, easy bruising Medical,Surgical,& Family Hx - Medical History Cardio: History of: CHF, CAD, Hypertension, Cardiovascular Problems Psychological: No history of: Psychiatric Problems Neurology: No history of: Cerebrovascular Accident, Seizures, TIA HEENT: No history of: Ear Problem, Eye Problem Endocrine: History of: Diabetes Mellitus (NIDDM) Respiratory: No history of: Asthma, COPD Renal: No history of: Renal Problems Genitourinary: No history of: Problems Gastrointestinal: No history of: GI Problems Musculoskeletal: No history of: Back/Neck Problems, Musculoskeletal Problems Hematology: No history of: Anemia, Bleeding Problems, Clotting Problems Other: No history of: Cancer - Surgical History Cardiac Surgeries: Sugical HX of: Cardiac Surgery (bypass 19 years ago) Thoracic Surgeries: Patient denies;: Organ Transplant - Family History Family History: Reports;: Family Cancer, Family Diabetes (mother), Family Heart Disease (father), Family Hypertension (father) - Social History Smoking Status: Current every day smoker Frequency of Alcohol Use: None Type of Drug Use: Marijuana Marital Status: Single Lives With:: Alone Functional capacity: independent ambulation Physical Examination Vital Signs Temp Pulse Resp BP Pulse Ox 98.5 F 95 H 24 110/81 89 L 05/25/17 19:07 05/25/17 19:07 05/25/17 19:07 05/25/17 19:07 05/25/17 19:07 General: Present: Appears Well HEENT: Absent: Jaundice, Pallor Neck: Present: Supple Neck, Midline Trachea Cardiac: Present: Reg Rate and Rhythm, S1/S2, S4, Systolic Murmur (MR RADIATING TO AXILLA), PMI (laterally displaced) Lungs: Present: Normal Exam Neuro: Present: Cranial Nerve 2-12 Intact, Motor Function Intact Abdomen: Present: Soft, Active Bowel Sounds Skin: Present: Clear. Absent: Rash Extremities: Present: Normal Gait, No Clubbing. Absent: Edema Result/EKG - Labs CBC & BMP: 05/26/17 05:03 05/26/17 05:03 Labs: Laboratory Results - last 24 hr 05/25/17 05/25/17 05/25/17 05:23 19:24 19:24 WBC RBC Hgb Hct MCV MCH MCHC RDW Plt Count MPV Neut % (Auto) Lymph % (Auto) [place] % (Auto) Eos % (Auto) Baso % (Auto) Neut # (Auto) Lymph # (Auto) [place] # (Auto) Eos # (Auto) Baso # (Auto) Immature Gran % Nucleated RBC % Immature Gran # Nucleated RBCs # Immature Plt Fraction INR 1.1 PT Patient/Control Mix 11.9 Circ Anticoag PTT 26.0 Sodium Potassium Chloride Carbon Dioxide Anion Gap BUN Creatinine GFR Calculation BUN/Creatinine Ratio Glucose POC Glucose Hemoglobin A1c Calculated Osmolality Calcium Magnesium Total Bilirubin AST ALT Alkaline Phosphatase Total Creatine Kinase 139 D CK-MB (CK-2) 4.2 H Troponin I 0.078 H D B-Natriuretic Peptide Total Protein Albumin Globulin Albumin/Globulin Ratio Triglycerides Cholesterol LDL Cholesterol VLDL Cholesterol HDL Cholesterol Heart Disease Risk Ratio Free T4 TSH 3rd Generation Urine Color Yellow Urine Appearance Clear Urine pH 5.0 Ur Specific [place] 1.012 Urine Protein Negative Urine Glucose (UA) Negative Urine Ketones Negative Urine Blood Small Urine Nitrate Negative Urine Bilirubin Negative Urine Urobilinogen 4.0 H Urine Leukocytes Negative Urine Mucus Occasional Ur Culture Indicated? Ordered separately 05/25/17 05/25/17 05/25/17 19:24 19:24 19:24 WBC 17.9 H D RBC 4.42 Hgb 13.4 L Hct 38.4 L MCV 86.9 L MCH 30 MCHC 34.9 RDW 13.2 Plt Count 323 MPV 9.8 Neut % (Auto) 81.2 H Lymph % (Auto) 7.5 L [place] % (Auto) 10.6 Eos % (Auto) 0.2 Baso % (Auto) 0.1 Neut # (Auto) 14.5 H Lymph # (Auto) 1.4 [place] # (Auto) 1.9 H Eos # (Auto) 0.0 Baso # (Auto) 0.0 Immature Gran % 0.4 Nucleated RBC % 0.0 Immature Gran # 0.08 Nucleated RBCs # 0.00 Immature Plt Fraction 0.0 INR PT Patient/Control Mix Circ Anticoag PTT Sodium 129 L Potassium 4.2 Chloride 91 L Carbon Dioxide 30 Anion Gap 12.2 BUN 28 H Creatinine 0.90 GFR Calculation 99 BUN/Creatinine Ratio 31.00 H Glucose 160 H POC Glucose Hemoglobin A1c Calculated Osmolality 266.9 L Calcium 8.7 Magnesium Total Bilirubin 0.80 AST 34 ALT 30 Alkaline Phosphatase 104 Total Creatine Kinase CK-MB (CK-2) Troponin I B-Natriuretic Peptide 1151 H Total Protein 6.1 L Albumin 3.0 L Globulin 3.1 Albumin/Globulin Ratio 0.9 L Triglycerides Cholesterol LDL Cholesterol VLDL Cholesterol HDL Cholesterol Heart Disease Risk Ratio Free T4 TSH 3rd Generation Urine Color Urine Appearance Urine pH Ur Specific [place] Urine Protein Urine Glucose (UA) Urine Ketones Urine Blood Urine Nitrate Urine Bilirubin Urine Urobilinogen Urine Leukocytes Urine Mucus Ur Culture Indicated? 05/25/17 05/25/17 05/25/17 23:49 23:49 23:50 WBC RBC Hgb Hct MCV MCH MCHC RDW Plt Count MPV Neut % (Auto) Lymph % (Auto) [place] % (Auto) Eos % (Auto) Baso % (Auto) Neut # (Auto) Lymph # (Auto) [place] # (Auto) Eos # (Auto) Baso # (Auto) Immature Gran % Nucleated RBC % Immature Gran # Nucleated RBCs # Immature Plt Fraction INR PT Patient/Control Mix Circ Anticoag PTT Sodium Potassium Chloride Carbon Dioxide Anion Gap BUN Creatinine GFR Calculation BUN/Creatinine Ratio Glucose POC Glucose Hemoglobin A1c 7.6 H Calculated Osmolality Calcium Magnesium 2.0 Total Bilirubin AST ALT Alkaline Phosphatase Total Creatine Kinase 117 CK-MB (CK-2) 3.8 H Troponin I 0.065 H B-Natriuretic Peptide Total Protein Albumin Globulin Albumin/Globulin Ratio Triglycerides Cholesterol LDL Cholesterol VLDL Cholesterol HDL Cholesterol Heart Disease Risk Ratio Free T4 1.27 TSH 3rd Generation Urine Color Urine Appearance Urine pH Ur Specific [place] Urine Protein Urine Glucose (UA) Urine Ketones Urine Blood Urine Nitrate Urine Bilirubin Urine Urobilinogen Urine Leukocytes Urine Mucus Ur Culture Indicated? 05/25/17 05/26/17 05/26/17 23:50 05:03 05:03 WBC 12.6 H RBC 4.44 Hgb 13.4 L Hct 39.3 L MCV 88.5 MCH 30 MCHC 34.1 RDW 13.1 Plt Count 306 MPV 9.8 Neut % (Auto) 75.6 H Lymph % (Auto) 11.0 L [place] % (Auto) 12.2 Eos % (Auto) 0.4 Baso % (Auto) 0.1 Neut # (Auto) 9.5 H Lymph # (Auto) 1.4 [place] # (Auto) 1.5 H Eos # (Auto) 0.1 Baso # (Auto) 0.0 Immature Gran % 0.7 Nucleated RBC % 0.0 Immature Gran # 0.09 Nucleated RBCs # 0.00 Immature Plt Fraction 0.0 INR PT Patient/Control Mix Circ Anticoag PTT Sodium 132 L Potassium 4.4 Chloride 89 L Carbon Dioxide 35 H Anion Gap 12.4 BUN 26 H Creatinine 1.10 GFR Calculation 77 BUN/Creatinine Ratio 23.00 H Glucose 144 H POC Glucose Hemoglobin A1c Calculated Osmolality 271.5 L Calcium 8.6 Magnesium Total Bilirubin 1.00 AST 29 ALT 29 Alkaline Phosphatase 102 Total Creatine Kinase CK-MB (CK-2) Troponin I B-Natriuretic Peptide Total Protein 6.0 L Albumin 2.8 L Globulin 3.2 Albumin/Globulin Ratio 0.8 L Triglycerides 104 Cholesterol 135 LDL Cholesterol 84.0 VLDL Cholesterol 20.8 HDL Cholesterol 32 L Heart Disease Risk Ratio 4.22 Free T4 TSH 3rd Generation 0.810 Urine Color Urine Appearance Urine pH Ur Specific [place] Urine Protein Urine Glucose (UA) Urine Ketones Urine Blood Urine Nitrate Urine Bilirubin Urine Urobilinogen Urine Leukocytes Urine Mucus Ur Culture Indicated? 05/26/17 05/26/17 05:03 08:11 WBC RBC Hgb Hct MCV MCH MCHC RDW Plt Count MPV Neut % (Auto) Lymph % (Auto) [place] % (Auto) Eos % (Auto) Baso % (Auto) Neut # (Auto) Lymph # (Auto) [place] # (Auto) Eos # (Auto) Baso # (Auto) Immature Gran % Nucleated RBC % Immature Gran # Nucleated RBCs # Immature Plt Fraction INR PT Patient/Control Mix Circ Anticoag PTT Sodium Potassium Chloride Carbon Dioxide Anion Gap BUN Creatinine GFR Calculation BUN/Creatinine Ratio Glucose POC Glucose 149 H Hemoglobin A1c Calculated Osmolality Calcium Magnesium Total Bilirubin AST ALT Alkaline Phosphatase Total Creatine Kinase 101 CK-MB (CK-2) 3.1 Troponin I 0.091 H D B-Natriuretic Peptide Total Protein Albumin Globulin Albumin/Globulin Ratio Triglycerides Cholesterol LDL Cholesterol VLDL Cholesterol HDL Cholesterol Heart Disease Risk Ratio Free T4 TSH 3rd Generation Urine Color Urine Appearance Urine pH Ur Specific [place] Urine Protein Urine Glucose (UA) Urine Ketones Urine Blood Urine Nitrate Urine Bilirubin Urine Urobilinogen Urine Leukocytes Urine Mucus Ur Culture Indicated? - EKG EKG results: interpreted by me (NSR with LVH and biatrial enlargement)
[2017-05-26] MEDS ORDERED: DIAZEPAM 5 MG TABLET PO ONE (10:25)
[2017-05-26] MEDS ORDERED: diphenhydrAMINE CAP 25 MG CAPSULE PO ONE (10:25)
--- NOTE | 2017-05-26 11:37 | Hospitalist Progress Note ---
<Benita Canela - Last Filed: 05/26/17 11:30> Assessment and Plan (1) Dyspnea Status: Acute Assessment and plan: Pt. received IV lasix in ED on admission. Breathing has improved. Cardiology is following. plans for heart cath in am. Current Visit: Yes (2) Congestive heart failure Status: Chronic Assessment and plan: Cardiology has been reconsulted. Heart scheduled for am. Troponin is 0.091. Will repeat. Home meds have been restarted. Current Visit: Yes Qualifiers: Congestive heart failure type: combined Congestive heart failure chronicity : acute on chronic Qualified Code(s): I50.43 - Acute on chronic combined systolic (congestive) and diastolic (congestive) heart failure (3) Diabetes mellitus Status: Chronic Assessment and plan: Lani OCONNELL. Current Visit: No Qualifiers: Diabetes mellitus type: type 2 Hospitalist: Subjective Interval history: Pt. seen and examined this morning. Pt. is resting comfortably in bed with supplemental O2 in place. No apparent distress noted. Pt. denies any chest pain or shortness of breath. BNP noted at 1151. Last troponin was 0.091. Pt. reports he has been seen by cardiology this am and is scheduled for heart cath in am. Pt. is instructed to remain NPO in the morning. Exam - Constitutional Vitals: Period Temp Pulse Resp BP Sys/Valladares Pulse Ox Last 24 Hr 96.8 F-98.5 F 89-105 16-24 102-130/64-81 89-100 General appearance: normal weight, no acute distress - Head Head exam: Present: normal inspection, normocephalic - Eye Eye exam: Present: EOMI Pupils: Present: SYDNEY - Respiratory Respiratory exam: Present: clear to auscultation bilaterally. Absent: wheezes - Cardiovascular Cardiovascular exam: Present: regular rate and rhythm - GI/Abdominal GI/Abdominal exam: Present: normal bowel sounds, soft. Absent: tenderness - Extremities Exam Extremities exam: Present: normal capillary refill, full ROM. Absent: edema - Neurological Exam Neurological exam: Present: alert, oriented X3 - Psychiatric Psychiatric exam: Present: normal affect, normal mood - Skin Skin exam: Present: normal color, warm, dry Results - Labs CBC & BMP: 05/26/17 05:03 05/26/17 05:03 Lab Results: I have reviewed the past 24 hour labs <Tao Pisano - Last Filed: 05/26/17 12:51> Exam - Constitutional Vitals: Period Temp Pulse Resp BP Sys/Valladares Pulse Ox Last 24 Hr 96.8 F-98.5 F 83-105 16-24 95-130/64-81 89-100 Results - Labs CBC & BMP: 05/26/17 05:03 05/26/17 05:03
[2017-05-26 14:02] LABS: Troponin I Only 0.071 NG/ML (0.00-0.045)
[2017-05-26] MEDS: ENOXAPARIN 40 MG/0.4 ML SYRINGE SUBCUT SCH (21:40)
[2017-05-27] MEDS: PIPERACILLIN/TAZOBACTAM 3,375 MG in SODIUM CHLORIDE 0.9% 100 ML IV SCH ×2 (00:06→09:26)
[2017-05-27 05:23] LABS: Basophils % 0.2 % (0.0-0.8); Eosinophils # 0.2 10*3/uL (0.0-0.87); Eosinophils % 1.5 % (0.00-10.9); Hematocrit 39.6 VOL% (42.0-52.0); Hemoglobin 13.7 GM/DL (14.0-18.0); Immature Granulocytes % 0.5 %; Immature Granulocytes Absolute 0.05 #; Lymphocytes # 1.3 10*3/uL (1.4-4.0); Lymphocytes % 12.8 % (21.2-54.2); Mean Corpuscular HGB Conc 34.6 GM/DL (32-36); Mean Corpuscular Hemoglobin 30 PG (27-34); Mean Platelet Volume 10.1 FL (9.6-12.0); Monocytes # 1.3 10*3/uL (0.11-0.8); Monocytes % 12.9 % (1.7-12.7); Neutrophils # 7.1 10*3/uL (1.4-7.4); Neutrophils % 72.1 % (38.7-73.9); Platelet Count 313 T/CUMM (130-400); Red Cell Distribution Width 13.2 % (9.3-17.3); White Blood Count 9.8 T/CUMM (4-12)
[2017-05-27 05:54] LABS: Calcium 8.4 MG/DL (8.5-10.1); Osmolality,Calculated 268.4 MOS/KG (273-304); Potassium 4.1 MMOL/L (3.5-5.1)
[2017-05-27] MEDS ORDERED: SODIUM CHLORIDE 0.45% 1,000 ML IV SCH (06:00)
[2017-05-27] MEDS ORDERED: HEPARIN/NACL 0.9% 2 UNITS/ML 1,000 ML IV ONE (07:38)
[2017-05-27] MEDS ORDERED: LIDOCAINE 1% 20 ML VIAL ONE (07:38)
[2017-05-27] MEDS ORDERED: DIAZEPAM 5 MG TABLET ONE (07:39)
[2017-05-27] MEDS ORDERED: diphenhydrAMINE CAP 50 MG CAPSULE ONE (07:39)
[2017-05-27] MEDS: LISINOPRIL 10 MG TABLET PO SCH ×2 (07:43→09:16)
[2017-05-27] MEDS: ASPIRIN EC 81 MG TABLET PO SCH ×2 (07:43→09:15)
[2017-05-27] MEDS: SPIRONOLACTONE 25 MG TABLET PO SCH ×2 (07:43→09:15)
[2017-05-27] MEDS: CARVEDILOL 6.25 MG TABLET PO SCH ×2 (07:43→09:16)
[2017-05-27] MEDS: metFORMIN 500 MG TABLET PO SCH (07:51)
[2017-05-27] MEDS: INSULIN REGULAR 100 UNIT/ML SUBCUT SCH ×4 (07:51→21:45)
[2017-05-27] MEDS ORDERED: fentaNYL 100 MCG/2 ML VIAL ONE (07:58)
[2017-05-27] MEDS ORDERED: MIDAZOLAM 2 MG/2 ML VIAL ONE (07:58)
--- NOTE | 2017-05-27 08:01 | History and Physical Update ---
Sedation H&P Update - History and Physical H&P was reviewed, the patient examined and there: are no changes in the patients condition since last H&P was completed. - Dictation Physical: refer to H&P completed by admitting physician - Physical Exam Mental Status: alert and oriented Heart: regular rate and rhythm, other (murmur of mr) Lung: clear to auscultation Abdomen: within normal limits Vitals: within normal limits - Sedation Plan for Sedation: moderate Patient Consent: Procedure disscussed with patient and patinet has consented., Risks and benefits were discussed with patient,including infection,, bleeding, injury to surrounding structures, seizure, temporary nerve, Patient understands and accepts potential risks/benefits and agrees to, proceed. ASA Class: IV Airway Assessment: Class III: Soft palate, base of uvula visible
[2017-05-27] MEDS ORDERED: metOLazone 5 MG TABLET PO SCH (09:00)
--- NOTE | 2017-05-27 09:02 | Cardiac Catheterization ---
Date of Procedure:: 05/27/17 Pre-op Diagnosis: Worsening cardiomyopathy and mitral regurgitation, severe Post-op diagnosis: other (1. Severe ischemic cardiomyopathy, decompensated 2. Severe three-vessel coronary artery disease with adequate bypass grafting as previously placed in severe menominee small diffuse vessel disease 3. Secondary mitral regurgitation from annular dilatation and ischemic cardiomyopathy 4. Secondary pulmonary area hypertension secondary to mitral regurgitation) Procedure: Procedures: 1. Right heart catheterization resting hemodynamics 2. Cardiac output by thermodilution 3. Left heart catheterization resting hemodynamics 4. Left ventriculography 5. Saphenous vein graft injection 2 6. Selective TERESA in situ graft injection 7. Selective left and right coronary angiography 8. Right femoral iliac angiography 9. Right femoral iliac angiography After consent was taken from the patient. Taken to the catheterization lab for left heart catheterization via the femoral artery. Time out was taken and recorded. 1% lidocaine was infiltrated in the skin and subcutaneous tissue overlying the right femoral artery. Modified Seldinger technique and an 18- gauge Cook needle was used for access to the right femoral artery. An 0.35 J- wire was advanced through the needle into the central aorta under fluoroscopy. A small skin was made and a 6 Faroese sheath was placed over the wire. The sheath was aspirated and flushed. At this time venous access was obtained in the right femoral vein 035 J-wire was advanced into the IVC. A small skin incision was made and a 7 Faroese sheath was placed over the wire. At this time a balloontipped flow-directed [place]-Dianne catheter was advanced to the wedge position pressure measurements were made. Pressure measurements were made. There is technical difficulties doing thermodilution but simultaneous FA and PA sats were obtained for calculation of cardiac output with José Miguel method. A JL46 was advanced over the wires in the left main coronary artery was selectively engaged. Multiple orthogonal views of the left system were obtained. The catheter was then exchanged over the wire. The sheath was aspirated and flushed. A JR4 catheter was advanced over the wire into the central aorta. The right coronary was selectively engaged and orthogonal views of the right coronary artery were obtained. The catheter was then used and pullback to selectively engage the saphenous vein graft to RCA and saphenous vein graft to the left circumflex distribution. The catheter was then exchanged over the wire, the sheath was aspirated and flushed. At this time an angled pigtail catheter was advanced across the aortic valve into the ventricle. Pressure measurements were obtained and a cine ventriculogram was performed in the MCGILL projection with 10 mL of contrast by a hand injection. Pullback measurements were performed. The whip operator reviewed the films. The sheath was aspirated and flushed and a right femoral and iliac angiography was performed. The access site was amenable for closure and the area was reprepped with ChloraPrep and draped with sterile towels. The Angio-Seal closure device was used in standard technique. There was no hematoma and distal pulses were good. Total diagnostic fluoroscopy time 24 minutes and diagnostic fluoroscopy dose 339 mg. Total contrast exposure 145 cc of Omnipaque. FINDINGS: José Miguel C.O. - 4.2 with index of 2.2 - Technical difficulty with TD and the laboratory manager equipment RA - 18 RV - 60/31 PA - 56/28 PCWP - 24 with prominent V waves LV: 102/15 LVEDP: 27 Ao:99/68 EF: 15-20% LM: Large vessel with mild luminal irregularities. LAD: 100% occluded in the proximal segment there is some flow to very small septal perforators and some collaterals diffusely other vessels that are not well delineated. The only contribution to the left ventricle from this menominee vessel is the first septal document review attorney. LCx: This vessel is 100% occluded proximally. With trivial collaterals to tiny vessels with no specific destination seen within the left ventricle. This vessel does not contribute in any sizable way to left ventricular the blood flow. RCA: This vessel has 100 percent proximal occlusion. There is a conus branch that supplies some to the anterior ventricular myocardium but very trivially. SVG-RCA: There is a small diffusely diseased the saphenous vein graft that appears to reach the crux of the ventricular myocardium anastomosis at the takeoff of the PDA. There is trivial distribution contribution to the left ventricular muscle at the PDA and posterolateral branch. These vessels are diffusely diseased and subtotally occluded and multiple areas SVG-OM: There is a very nice saphenous vein graft appears to go to the second obtuse marginal. This is a very small vessel and gives collaterals to what appears to be a trivial first obtuse marginal. There is no high-grade stenosis in the graft. DOWELL in-situ-LAD: There is a nice tortuous in situ DOWELL to the LAD the LAD is diffusely diseased and branches including the septals and the trivial diagonal supplies some of the lateral ventricular myocardium with what appear to be obtuse marginals or possibly occluded diagonals. RFA/BRUCE: Right femoral iliac arteries are heavily calcified. First shot demonstrated possible underlying very small vessel. Second shot was performed and near the end of the injection there is a large amount of air were injected. A third image was performed to demonstrate reasonable flow in the distal vessels. The patient has cardiomyopathy and flow is slow but it appears to be acceptable. The patient is asymptomatic. Assessment: 1. Severe ischemic cardiomyopathy with adequate epicardial revascularization by vein grafts and TERESA in situ to the LAD but diffuse heavily calcific small coronary arteries 2. Decompensated cardiomyopathy, ischemic 3. Severe mitral regurgitation by transthoracic echo suboptimal opacification of the left ventricle, hand-injection to assess mitral regurgitation 3. Severe pulmonary hypertension with large V wave in wedge tracing suggesting severe mitral regurgitation PLAN: 1. Escalate medical therapy 2. Consider options for secondary mitral regurgitation. I do not think the patient would benefit from surgery will get input from Dr. Hughes after discussing with Dr. kramer. Consider the patient's candidacy for minimally invasive therapy such as mitral clip or other annular shrinking devices tertiary care facility. There is a significant amount of room to work from medical standpoint but overall prognosis is extremely poor. I discussed with the patient's son Juan Meneses also discussed with the patient. The patient's son Edaur is a [employer] rep and would also like to talk to a diecast machine operator once is seen by Dr. Hughes. Implants: Angio-Seal closure device right femoral arteriotomy. Anesthesia: moderate conscious sedation Surgeon / Physician: Lauren Myers Assistant Tennis Coach: none Estimated blood loss: none Specimens: none sent Condition: stable Disposition: floor - Medications / Follow-up
[2017-05-27] MEDS: FUROSEMIDE 40 MG/4 ML VIAL IV SCH ×3 (09:16→16:51)
--- NOTE | 2017-05-27 09:16 | EKG Report ---
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
[2017-05-27] MEDS: PANTOPRAZOLE 40 MG TABLET PO SCH (10:06)
--- NOTE | 2017-05-27 10:40 | Hospitalist Progress Note ---
Assessment and Plan (1) CAD (coronary artery disease) Status: Chronic Assessment and plan: long standing CAD with bypass 19 years ago now with CHF and chest pain. Cath this morning with planned review of films by Dr Hughes per patient's report. Cath report says he has severe iliamna disease and adequate grafts but Mitral valve regurgitation that might need replacement. Await Dr Hughes's assessment. DM is adequately controlled, continue SSI. Current Visit: No Qualifiers: Coronary Disease-Associated Artery/Lesion type: iliamna artery [place] vs. transplanted heart: iliamna heart Associated angina: without angina Qualified Code(s): I25.10 - Atherosclerotic heart disease of iliamna coronary artery without angina pectoris (2) Congestive heart failure Status: Chronic Current Visit: Yes Qualifiers: Congestive heart failure type: combined Congestive heart failure chronicity : acute on chronic Qualified Code(s): I50.43 - Acute on chronic combined systolic (congestive) and diastolic (congestive) heart failure (3) Diabetes mellitus Status: Chronic Current Visit: No Qualifiers: Diabetes mellitus type: type 2 Hospitalist: Subjective Interval history: Mr Mcneil has had his heart cath this morning and reports he feels hungry and tired of lying on his back. He denies other pain. He is breathing comfortably. Exam - Constitutional Vitals: Period Temp Pulse Resp BP Sys/Valladares Pulse Ox Last 24 Hr 96.4 F-98.5 F 72-87 16-20 92-113/54-80 94-99 General appearance: normal weight, no acute distress - Eye Eye exam: Present: EOMI. Absent: scleral icterus - Respiratory Respiratory exam: Present: clear to auscultation bilaterally - Cardiovascular Cardiovascular exam: Present: regular rate and rhythm - GI/Abdominal GI/Abdominal exam: Present: normal bowel sounds, soft. Absent: tenderness - Extremities Exam Extremities exam: Absent: edema Results - Labs CBC & BMP: 05/27/17 04:16 05/27/17 04:16 Lab Results: I have reviewed the past 24 hour labs Quality Measures - VTE Contraindication to Pharmacological VTE Prophylaxis: High Risk of Bleeding Specialty Discharge - Follow Up or Referrals
--- NOTE | 2017-05-27 14:50 | Cardiothoracic Progress Note ---
Cardiothoracic Subjective Interval history: Patient is a 66-year-old man who underwent coronary bypass surgery approximately 19 years ago. He has had recurrent symptoms of chest discomfort but primarily his symptoms have been weakness and shortness of breath. Cardiac catheterization done today shows a severe degree of ischemic cardiomyopathy with an ejection fraction at or below 20%. Echocardiogram demonstrated severe mitral regurgitation. His bypass grafts are open but runoff is very poor due to small vessel [place] coronary disease. The patient might very well benefit from correction of his mitral insufficiency but surgical risk would be prohibitive due to his severe cardiomyopathy and the fact that his surgery would be reoperation with attendant risks. Patient's son is a [employer] molina who apparently has contacts with centers which are doing noninvasive mitral repairs with a mitral clip. This may be a reasonable solution for this patient and Dr. Anaya and he are going to discuss this possibility further. Exam (Progress Note) - Constitutional Vitals: Period Temp Pulse Resp BP Sys/Valladares Pulse Ox Last 24 Hr 96.4 F-98.5 F 62-87 16-20 92-113/45-80 94-99 Result/EKG - Labs CBC & BMP: 05/27/17 04:16 05/27/17 04:16 Labs: Laboratory Results - last 24 hr 05/26/17 05/26/17 05/27/17 16:30 21:39 04:16 WBC 9.8 RBC 4.50 Hgb 13.7 L Hct 39.6 L MCV 88.0 MCH 30 MCHC 34.6 RDW 13.2 Plt Count 313 MPV 10.1 Neut % (Auto) 72.1 Lymph % (Auto) 12.8 L [place] % (Auto) 12.9 H Eos % (Auto) 1.5 Baso % (Auto) 0.2 Neut # (Auto) 7.1 Lymph # (Auto) 1.3 L [place] # (Auto) 1.3 H Eos # (Auto) 0.2 Baso # (Auto) 0.0 Immature Gran % 0.5 Nucleated RBC % 0.0 Immature Gran # 0.05 Nucleated RBCs # 0.00 Immature Plt Fraction 0.0 Sodium Potassium Chloride Carbon Dioxide Anion Gap BUN Creatinine GFR Calculation BUN/Creatinine Ratio Glucose POC Glucose 175 H 165 H Calculated Osmolality Calcium 05/27/17 05/27/17 05/27/17 04:16 07:24 11:39 WBC RBC Hgb Hct MCV MCH MCHC RDW Plt Count MPV Neut % (Auto) Lymph % (Auto) [place] % (Auto) Eos % (Auto) Baso % (Auto) Neut # (Auto) Lymph # (Auto) [place] # (Auto) Eos # (Auto) Baso # (Auto) Immature Gran % Nucleated RBC % Immature Gran # Nucleated RBCs # Immature Plt Fraction Sodium 133 L Potassium 4.1 Chloride 92 L Carbon Dioxide 32 Anion Gap 13.1 BUN 19 H Creatinine 0.90 GFR Calculation 98 BUN/Creatinine Ratio 21.00 H Glucose 110 H POC Glucose 101 154 H Calculated Osmolality 268.4 L Calcium 8.4 L Quality Measures - VTE Contraindication to Pharmacological VTE Prophylaxis: High Risk of Bleeding Specialty Discharge - Follow Up or Referrals
[2017-05-28] MEDS: FUROSEMIDE 40 MG/4 ML VIAL IV SCH ×2 (00:54→10:00)
[2017-05-28 05:06] LABS: Basophils % 0.3 % (0.0-0.8); Eosinophils # 0.2 10*3/uL (0.0-0.87); Eosinophils % 1.6 % (0.00-10.9); Hematocrit 41.3 VOL% (42.0-52.0); Hemoglobin 14.3 GM/DL (14.0-18.0); Immature Granulocytes % 0.3 %; Immature Granulocytes Absolute 0.04 #; Lymphocytes # 1.3 10*3/uL (1.4-4.0); Lymphocytes % 10.6 % (21.2-54.2); Mean Corpuscular HGB Conc 34.6 GM/DL (32-36); Mean Corpuscular Hemoglobin 31 PG (27-34); Mean Corpuscular Volume 88.1 FL (87-102); Mean Platelet Volume 9.8 FL (9.6-12.0); Monocytes # 1.4 10*3/uL (0.11-0.8); Monocytes % 11.9 % (1.7-12.7); Neutrophils % 75.3 % (38.7-73.9); Platelet Count 341 T/CUMM (130-400); Red Blood Count 4.69 MC/CUMM (3.8-5.5); Red Cell Distribution Width 13.1 % (9.3-17.3)
[2017-05-28 05:52] LABS: Calcium 8.6 MG/DL (8.5-10.1); Osmolality,Calculated 268.5 MOS/KG (273-304); Potassium 4.6 MMOL/L (3.5-5.1)
--- NOTE | 2017-05-28 07:44 | EKG Report ---
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
[2017-05-28] MEDS: LISINOPRIL 10 MG TABLET PO SCH (09:59)
[2017-05-28] MEDS: PANTOPRAZOLE 40 MG TABLET PO SCH (09:59)
[2017-05-28] MEDS: ASPIRIN EC 81 MG TABLET PO SCH (09:59)
[2017-05-28] MEDS: SPIRONOLACTONE 25 MG TABLET PO SCH (10:00)
[2017-05-28] MEDS: CARVEDILOL 6.25 MG TABLET PO SCH (10:00)
[2017-05-28] MEDS: INSULIN REGULAR 100 UNIT/ML SUBCUT SCH ×4 (10:04→20:25)
--- NOTE | 2017-05-28 14:25 | Hospitalist Progress Note ---
Assessment and Plan (1) Congestive heart failure Status: Chronic Assessment and plan: Status post recent cardiac cath by Dr. Myers shows an EF of 15-20%, increase diuresis 60 mg IV q. 8, need to free water restrict. Current Visit: Yes Qualifiers: Congestive heart failure type: combined Congestive heart failure chronicity : acute on chronic Qualified Code(s): I50.43 - Acute on chronic combined systolic (congestive) and diastolic (congestive) heart failure (2) Hypertension Status: Chronic Assessment and plan: Blood pressure well controlled on Coreg and lisinopril Current Visit: No Qualifiers: Hypertension type: essential hypertension Qualified Code(s): I10 - Essential (primary) hypertension (3) Diabetes mellitus Status: Chronic Assessment and plan: Blood sugars are not well controlled. Hemoglobin A1c is 7.6, we will increase his metformin to 750 mg twice a day Current Visit: No Qualifiers: Diabetes mellitus type: type 2 (4) Mitral regurgitation Status: Chronic Assessment and plan: He has severe mitral regurg and is not a candidate for valve replacement due to his poor ejection fraction. Patient is a good candidate for mitral valve clips which are done by Dr. Shah in [place] Current Visit: No Qualifiers: Cardiac valve disease etiology: nonrheumatic Qualified Code(s): I34.0 - Nonrheumatic mitral (valve) insufficiency (5) Pulmonary hypertension Status: Chronic Assessment and plan: PA pressure of 56 on heart cath Current Visit: No (6) Cardiomyopathy Status: Acute Assessment and plan: ef of 15% Current Visit: Yes Hospitalist: Subjective Interval history: I have spoken with Dr. Myers and Dr. Hughes and they feel he is a good candidate for the mitral clips and his son Eduar Mcneil and he would like Dr Philip Shah at [facility] in [place] to do the procedure. He son will get me the fax number for Dr. Shah Exam - Constitutional Vitals: Period Temp Pulse Resp BP Sys/Valladares Pulse Ox Last 24 Hr 96.8 F-97.7 F 65-96 16-20 101-125/56-80 92-100 Exam: Heart Rate-tachy] Lungs-[diminished] GI-[+bs soft, NT] Neuro [Motor 5/5], [alert and oriented times 3] psych [normal mood and affect] General [no acute distress] Results - Labs CBC & BMP: 05/28/17 04:26 05/28/17 04:26 Lab Results: I have reviewed the past 24 hour labs Quality Measures - VTE Contraindication to Pharmacological VTE Prophylaxis: High Risk of Bleeding Specialty Discharge - Follow Up or Referrals
[2017-05-28] MEDS ORDERED: metFORMIN 500 MG TABLET PO SCH (14:33)
[2017-05-28] MEDS ORDERED: FUROSEMIDE 40 MG/4 ML VIAL IV SCH (14:35)
--- NOTE | 2017-05-28 14:56 | Cardiology Progress Note ---
Chris Goldberg Lesley, NP, am scribing for, and in the presence of, Neptali Egan MD 14:56. Assessment and Plan - Time spent with patient Time spent with patient: Greater than 30 minutes (Assessment documentation) (1) Congestive heart failure Status: Chronic Assessment and plan: SEE PLAN OF CARE BELOW Current Visit: Yes Qualifiers: Congestive heart failure type: combined Congestive heart failure chronicity : acute on chronic Qualified Code(s): I50.43 - Acute on chronic combined systolic (congestive) and diastolic (congestive) heart failure (2) Hypertension Status: Chronic Assessment and plan: SEE PLAN OF CARE BELOW Current Visit: No Qualifiers: Hypertension type: essential hypertension Qualified Code(s): I10 - Essential (primary) hypertension (3) Diabetes mellitus Status: Chronic Assessment and plan: SEE PLAN OF CARE BELOW Current Visit: No Qualifiers: Diabetes mellitus type: type 2 (4) Dyslipidemia Status: Chronic Assessment and plan: SEE PLAN OF CARE BELOW Current Visit: No (5) CAD (coronary artery disease) Status: Chronic Assessment and plan: SEE PLAN OF CARE BELOW Current Visit: No Qualifiers: Coronary Disease-Associated Artery/Lesion type: [place] artery [place] vs. transplanted heart: [place] heart Associated angina: without angina Qualified Code(s): I25.10 - Atherosclerotic heart disease of [place] coronary artery without angina pectoris (6) Mitral regurgitation Status: Chronic Assessment and plan: SEE PLAN OF CARE BELOW Current Visit: No Qualifiers: Cardiac valve disease etiology: nonrheumatic Qualified Code(s): I34.0 - Nonrheumatic mitral (valve) insufficiency (7) Pulmonary hypertension Status: Chronic Assessment and plan: SEE PLAN OF CARE BELOW Current Visit: No (8) Cardiomyopathy Status: Acute Assessment and plan: SEE PLAN OF CARE BELOW Current Visit: Yes Cardiology - PN: Subj Interval history: MEDICAL PATHOLOGIST: Dr. Singh Mr. Gomez is a 66-year-old male who saw Dr. Singh earlier in the week after seeing his primary care physician. He subsequently came to the emergency room on and was seen and evaluated and discharged after medication adjustments. The patient was set up for a left heart cath for the following week. Cardiac risk factors include CAD, dyslipidemia, hypertension, smoker (50 years up to 1 ppd), diabetes, PAD, positive family history, and new onset of heart failure. The patient reports that he had CABG performed by Dr. Hughes 19 years ago, and did see Dr. Singh at that time, but has only followed up with his primary care doctor since then. Most recent echocardiogram revealed mildly enlarged left ventricle with severely decreased globally left ventricular systolic function. LVEF 20-25%. Right ventricular systolic function moderately decreased. Left atrial diameter mildly increased. Right atrium mildly enlarged. Mild calcification of the aortic valve noted with adequate cuspal excursion. Severe 4+ mitral regurgitation, Moderate tricuspid regurgitation, septal hugging jet is noted. Mild pulmonic regurgitation. Estimated pulmonary artery systolic pressure was 49 mmHg. The patient returned to the emergency room on Saturday night stating that he felt like he was suffocating, and could not catch his breath. He states this is the way he felt when he saw his primary care doctor with the previous week. He denies chest pain. A left and right heart cath performed with the following conclusions: Severe ischemic cardiomyopathy with adequate epicardial revascularization by vein grafts and TERESA in situ to the LAD but diffuse heavily calcific small coronary arteries; Decompensated cardiomyopathy, ischemic; Severe mitral regurgitation by transthoracic echo suboptimal opacification of the left ventricle, hand- injection to assess mitral regurgitation; Severe pulmonary hypertension with large V wave in wedge tracing suggesting severe mitral regurgitation. Dr. Hughes, CV surgeon, evaluated the patient and felt his surgical risk was prohibitive due to his severe cardiomyopathy. The patient's son is a [employer] rep and has contact with center stay noninvasive mitral repairs and the mitral clip, the patient and his son are interested in this option. MAY 28, 2017: The patient did well overnight. Vital signs have remained stable. He denies complaints of shortness of breath or PND. Oxygen via nasal cannula 2 L. Labs reviewed: Sodium level 132, creatinine 1.0, BUN 20, glucose 139, WBCs 12,000. Monitor reveals sinus rhythm. I discussed his case today with the patient's son Eduar who is a rep for [employer], his admitting physician Dr. Rodriguez, and Dr. Philip Jean at [facility] in [place]. We are planning to transfer the patient over for evaluation for possible mitral clip. He may also need a defibrillator at that time. IMPRESSION AND PLAN: 1. ISCHEMIC CARDIOMYOPATHY -clinically well compensated on medical management at this time. The patient will likely need an internal cardiac defibrillator. We are transferring him to [facility] in [place] for evaluation for his mitral valve. I will defer to them the appropriate timing for defibrillator implant. 2. SEVERE MITRAL REGURGITATION -I have discussed his case with Dr. Philip Jean at [facility] in [place]. We are going to make arrangements for him to be transferred for evaluation for possible mitral clip procedure. 3. CONGESTIVE HEART FAILURE -continue IV Lasix and oxygen. 4. CAD -medical management 5. PULMONARY HYPERTENSION -chronic, medical management. 6. HYPERTENSION -continue medications and adjust accordingly. Exam (Progress Note) - Constitutional Vitals: Period Temp Pulse Resp BP Sys/Valladares Pulse Ox Last 24 Hr 96.8 F-97.7 F 65-96 16-20 101-125/56-80 92-100 Exam: General: Appears well with no apparent distress. Pleasant and cooperative. Appears comfortable. HEENT: PERRL, normocephalic, atraumatic. Mucous membranes moist. No jaundice noted. Conjunctiva moist and clear, sclerae anicteric. Neck: No JVD/HJR, no thyromegaly or lymphadenopathy noted. No carotid bruit appreciated. Cardiac: Regular rate and rhythm. Murmur present, no rub or gallop.] PMI is nondisplaced. Lungs: Clear to auscultation without accessory muscle use to assist the respiratory pattern. Oxygen in use via nasal cannula. Abdomen: Soft, bowel sounds normoactive. Nontender and nondistended. No abdominal bruit or thrill noted. No masses noted. Musculoskeletal: No fluid collection. Full range of motion is noted. Extremities: No clubbing, cyanosis noted. No edema noted. Upper extremity pulses 2+. Lower extremity pulses 2+. Capillary refill less than 3 seconds. Skin: No unusual lesions or rashes. No skin breakdown appreciated. Neuro: Awake, alert and oriented 3. Moves all extremities well without hemiparesis or paralysis. No essential tremor is appreciated. Result/EKG - Labs CBC & BMP: 05/28/17 04:26 05/28/17 04:26 Lab Results: I have reviewed the past 24 hour labs Labs: Laboratory Results - last 24 hr 05/27/17 05/27/17 05/28/17 16:17 19:20 04:26 WBC 12.0 RBC 4.69 Hgb 14.3 Hct 41.3 L MCV 88.1 MCH 31 MCHC 34.6 RDW 13.1 Plt Count 341 MPV 9.8 Neut % (Auto) 75.3 H Lymph % (Auto) 10.6 L Kay % (Auto) 11.9 Eos % (Auto) 1.6 Baso % (Auto) 0.3 Neut # (Auto) 9.0 H Lymph # (Auto) 1.3 L Kay # (Auto) 1.4 H Eos # (Auto) 0.2 Baso # (Auto) 0.0 Immature Gran % 0.3 Nucleated RBC % 0.0 Immature Gran # 0.04 Nucleated RBCs # 0.00 Immature Plt Fraction 0.0 Sodium Potassium Chloride Carbon Dioxide Anion Gap BUN Creatinine GFR Calculation BUN/Creatinine Ratio Glucose POC Glucose 235 H 226 H Calculated Osmolality Calcium 05/28/17 05/28/17 05/28/17 04:26 07:19 11:35 WBC RBC Hgb Hct MCV MCH MCHC RDW Plt Count MPV Neut % (Auto) Lymph % (Auto) Kay % (Auto) Eos % (Auto) Baso % (Auto) Neut # (Auto) Lymph # (Auto) Kay # (Auto) Eos # (Auto) Baso # (Auto) Immature Gran % Nucleated RBC % Immature Gran # Nucleated RBCs # Immature Plt Fraction Sodium 132 L Potassium 4.6 Chloride 89 L Carbon Dioxide 40 H Anion Gap 7.6 BUN 20 H Creatinine 1.00 GFR Calculation 86 BUN/Creatinine Ratio 20.00 Glucose 139 H POC Glucose 262 H 201 H Calculated Osmolality 268.5 L Calcium 8.6 - EKG EKG results: interpreted by me, sinus rhythm Quality Measures - VTE Contraindication to Pharmacological VTE Prophylaxis: High Risk of Bleeding Specialty Discharge - Follow Up or Referrals Julisa Goldberg Michael, MD, personally performed the services described in this documentation, ascribed by Rupa Perez NP in my presence, and it is both accurate and complete [id number] .
--- NOTE | 2017-05-28 19:31 | Discharge Summary ---
Hospital Course - Hospital Course Hospital Course: 66-year-old male with a history of diabetes hypertension and congestive heart failure was recently discharged and readmitted for congestive heart failure. Patient had a BNP on admission of 1151 he was placed on IV Lasix. His initial sodium was 129. Cardiology was consulted. Heart cath was performed by Dr. Myers which shows an EF of 15%. Patient has severe ischemic cardiomyopathy but adequate revascularization of the vein grafts. Patient has severe mitral regurg and pulmonary hypertension. Dr. Hughes from cardiothoracic surgery was consulted but feels he is too high risk for a valve replacement. Dr. Shah from [facility] was consulted for possible mitral clips. Dr. Shah has accepted him for transfer to [facility]. Patient's diabetes and hypertension is currently stable. His hemoglobin A1c is 6.6. His blood cultures 2 are negative no growth. His urine culture is negative. Transfer to [facility]. - Time spent with patient Time with patient DS: Greater than 30 minutes (45 min) Diagnosis - Discharge Diagnosis (1) Congestive heart failure Status: Chronic (2) Hypertension Status: Chronic (3) Diabetes mellitus Status: Chronic (4) Mitral regurgitation Status: Chronic (5) Pulmonary hypertension Status: Chronic (6) Cardiomyopathy Status: Acute Specialty Discharge - Follow Up or Referrals Discharge Plan - Discharge Data Disposition: Disch/Xfer-[facility] Term Hos Condition at Discharge: Stable Discharge Diet: diabetic diet Activity: wear oxygen at all times Hygiene: no restrictions - Discharge Medications New Dextrose 50% [D50] 25 gm IV PRN PRN syringe PRN Reason: Hypoglycemia with IV access Glucagon 1 mg IM PRN PRN vial PRN Reason: Hypoglycemia w/o IV access Insulin Regular [HumuLIN R] See Protocol SUBCUT ACHS unit Nicotine 21 mg/24 Hr Patch [Nicoderm CQ 21 mg/24 hr Patch] 1 patch TRANSDERM DAILY PRN patch PRN Reason: Nicotine Withdrawal Ondansetron Inj [Zofran Inj] 4 mg IV Q4H PRN vial PRN Reason: Nausea Furosemide Inj [Lasix Inj] 60 mg IV Q8H vial Pantoprazole Tab [Protonix Tab] 40 mg PO DAILY tablet Continue metFORMIN [Glucophage] 500 mg PO BID W/MEALS Lisinopril [Prinivil] 10 mg PO QAM Spironolactone [Aldactone] 25 mg PO QAM Nitroglycerin 0.4 mg SL DIRECTED PRN PRN Reason: Chest Pain Aspirin EC Tab 81 mg PO QAM Carvedilol [Coreg] 6.25 mg PO QAM Discontinued Furosemide Tab [Lasix Tab] 40 mg PO BID DIURETIC tablet - Follow Up or Referral - Forms/Instructions Instructions: Coronary Artery Disease (GEN), Left Heart Catheterization (DC), How to Stop Smoking (GEN), Heart Healthy Diet (GEN), Cigarette Smoking and Your Health (GEN) Exam - Constitutional Vitals: Period Temp Pulse Resp BP Sys/Valladares Pulse Ox Last 24 Hr 96.8 F-97.7 F 65-96 16-20 107-125/65-80 92-100 General appearance: normal weight, no acute distress - Respiratory Respiratory exam: Present: decreased breath sounds. Absent: rhonchi, wheezes - Cardiovascular Cardiovascular exam: Present: regular rate and rhythm, systolic murmur - GI/Abdominal GI/Abdominal exam: Present: normal bowel sounds, soft. Absent: tenderness - Neurological Exam Neurological exam: Present: alert, oriented X3 - Psychiatric Psychiatric exam: Present: normal affect, normal mood Discharge Results Procedures and tests throughout hospitalization: Pending Orders 05/25/17 21:41 Blood Culture Stat 05/29/17 04:00 BMP w/ Mg [Basic Metabolic Panel w/Mg] IN AM Basic Metabolic Panel IN AM Comp Blood Count Auto Diff IN AM 05/30/17 04:00 Basic Metabolic Panel IN AM Comp Blood Count Auto Diff IN AM Labs on day of discharge: Labs from last 24 hours 05/28/17 05/28/17 05/28/17 15:52 11:35 07:19 WBC RBC Hgb Hct MCV MCH MCHC RDW Plt Count MPV Neut % (Auto) Lymph % (Auto) [place] % (Auto) Eos % (Auto) Baso % (Auto) Neut # (Auto) Lymph # (Auto) [place] # (Auto) Eos # (Auto) Baso # (Auto) Immature Gran % Nucleated RBC % Immature Gran # Nucleated RBCs # Immature Plt Fraction Sodium Potassium Chloride Carbon Dioxide Anion Gap BUN Creatinine GFR Calculation BUN/Creatinine Ratio Glucose POC Glucose 115 H 201 H 262 H Calculated Osmolality Calcium 05/28/17 05/28/17 05/27/17 04:26 04:26 19:20 WBC 12.0 RBC 4.69 Hgb 14.3 Hct 41.3 L MCV 88.1 MCH 31 MCHC 34.6 RDW 13.1 Plt Count 341 MPV 9.8 Neut % (Auto) 75.3 H Lymph % (Auto) 10.6 L [place] % (Auto) 11.9 Eos % (Auto) 1.6 Baso % (Auto) 0.3 Neut # (Auto) 9.0 H Lymph # (Auto) 1.3 L [place] # (Auto) 1.4 H Eos # (Auto) 0.2 Baso # (Auto) 0.0 Immature Gran % 0.3 Nucleated RBC % 0.0 Immature Gran # 0.04 Nucleated RBCs # 0.00 Immature Plt Fraction 0.0 Sodium 132 L Potassium 4.6 Chloride 89 L Carbon Dioxide 40 H Anion Gap 7.6 BUN 20 H Creatinine 1.00 GFR Calculation 86 BUN/Creatinine Ratio 20.00 Glucose 139 H POC Glucose 226 H Calculated Osmolality 268.5 L Calcium 8.6 Preliminary micro results at discharge 05/25/17 21:41 Blood Culture - Preliminary Blood No growth at 1 day 05/25/17 21:40 Blood Culture - Preliminary Blood No growth at 1 day DS: Provider Date of admission: 05/25/17 21:26 Primary care physician: Neptali Whitman DO Attending physician on admission: Krystina Ferguson MD Consults: 05/25/17 23:16 Consult to Physician [CONS] Routine Comment: CHF Consulting Provider: Chitra Meeks 05/27/17 08:30 Consult to Cardiac Rehabilitation [CONS] Routine Reason for Cardiac Rehabilitation: Risk Factor Modification Other Consult Comment: Evaluate and recommend 05/27/17 08:48 Consult to Physician [CONS] Routine Comment: Secondary MR Consulting Provider: Vishnu Hughes Person Notified: Elsy Date Notified: 05/27/17 Time Notified: 09:10 Discharging clinician: Coleen Rodriguez MD
[2017-05-28 20:25] VITALS: BP 111/66
== END 2017-05-28 20:53 | disposition hospice, home (50) | DRG 286 ==
LOC: N.ED 19:00 → N.EDINP 21:26 → SUATTDRO 21:26 → N.TELES 22:11
PROVIDERS: ADMIT Internal Medicine; ATTEND Internal Medicine

== ENCOUNTER 2017-06-16 20:45 | Inpatient (IN) ==
[2017-06-16] MEDS ORDERED: SODIUM CHLORIDE 0.9% 500 ML IV STA (21:44)
[2017-06-16 21:56] LABS: Basophils % 0.2 % (0.0-0.8); Eosinophils # 0.2 10*3/uL (0.0-0.87); Hemoglobin 12.5 GM/DL (14.0-18.0); Immature Granulocytes % 0.5 %; Immature Granulocytes Absolute 0.07 #; Lymphocytes # 1.1 10*3/uL (1.4-4.0); Lymphocytes % 7.1 % (21.2-54.2); Mean Corpuscular HGB Conc 35.7 GM/DL (32-36); Mean Corpuscular Hemoglobin 30 PG (27-34); Mean Corpuscular Volume 83.3 FL (87-102); Mean Platelet Volume 9.4 FL (9.6-12.0); Monocytes # 1.3 10*3/uL (0.11-0.8); Neutrophils # 12.1 10*3/uL (1.4-7.4); Neutrophils % 82.2 % (38.7-73.9); Platelet Count 224 T/CUMM (130-400); Red Cell Distribution Width 12.8 % (9.3-17.3); White Blood Count 14.7 T/CUMM (4-12)
[2017-06-16 22:02] LABS: INR 1.1; PT Patient Result 11.4 SECS
[2017-06-16 22:11] LABS: Lactic Acid 1.8 MMOL/L (0.4-2.0)
[2017-06-16 22:12] LABS: Alanine Aminotransferase 39 U/L (16-61); Albumin 3.3 G/DL (3.4-5.0); Alkaline Phosphatase 87 U/L (45-117); Aspartate Amino Transferase 42 U/L (0-37); Blood Urea Nitrogen 36 MG/DL (7-18); Calcium 9.1 MG/DL (8.5-10.1); Glucose 163 MG/DL (74-106); Magnesium 2.3 MG/DL (1.8-2.4); Osmolality,Calculated 262.5 MOS/KG (273-304); Potassium 4.2 MMOL/L (3.5-5.1); Sodium 125 MMOL/L (136-145); Total Protein 6.1 G/DL (6.4-8.3); Troponin I Only 0.035 NG/ML (0.00-0.045)
[2017-06-16 22:19] LABS: Ammonia 36 UMOL/L (11-32)
--- NOTE | 2017-06-16 22:23 | Emergency Department Note ---
IAnkur Emily, am scribing for, and in the presence of, Cheikh Veloz MD 22: 19. IMagdiel Charles R, MD, personally performed the services described in this documentation, ascribed by Muna Pascual in my presence, and it is both accurate and complete . Arrival - Arrival Chief Complaint: Altered Mental Status Stated Complaint: New Med, and out of it ED Nursing Triage Note: C/O Confusion/hallucinations. Onset since lastnight per family member, family member reports seeing him last normal yesterday morning. Family member reports that he spent "all day" at [facility] today, but they didn't do anything for him- stated that his lab work looked good, said his blood pressure was low and discharged him. Pt is awake, alert and oriented x 3, but is confused in conversation. BP 85/48 on right arm. BP 80/50 on left arm. FSG 199 at time of triage Mode of Arrival: Ambulatory Limitations: Altered Mental Status Source: Family (son) Time Seen by Provider: 06/16/17 21:23 - History of Present Illness HPI Narrative: Pt is a 66 y/o male who was brought to ED by son for further evaluation of AMS that started yesterday. Son reports pt has been talking out of his head, trying to call 911 and miss dialing the number, seeing people in front yard and pulled out gun. Son states pt wakes up talking out of his head, has been cold, and today has had no output, but denies fever, cough or diaphoresis. Pt was hospitalized at the end of April for heart cath which showed 17% injection and had defibrillator pacemaker installed, along with adding Coreg medicine daily. Son took pt to [facility] this afternoon from 1p-7pm, and found low BP but was sent home with no UA. Son notes pt is sleeping with son's CPAP machine and sees Dr. Singh and Dr. Whitman. He was taken off Lasix from the today, which was taken twice a day. Son states pt does not drink or smoke. Onset (ago): day(s) Consistency: constant Severity: mild, moderate Severity scale (1-10): 4 Quality: other (altered) Allergies/Adverse Reactions: Allergies Allergy/AdvReac Type Severity Reaction Status Date / Time No Known Allergies Allergy Verified 05/25/17 19:11 Home Medications: Home Medications Medication Instructions Recorded Confirmed Type Nitroglycerin 0.4 mg SL DIRECTED PRN 05/24/17 05/25/17 History metFORMIN [Glucophage] 500 mg PO BID W/MEALS 05/24/17 05/25/17 History Aspirin EC Tab 81 mg PO QAM 05/25/17 05/25/17 History Carvedilol [Coreg] 6.25 mg PO QAM 05/25/17 05/25/17 History Lisinopril [Prinivil] 10 mg PO QAM 05/25/17 05/25/17 History Spironolactone [Aldactone] 25 mg PO QAM 05/25/17 05/25/17 History Dextrose 50% [D50] 25 gm IV PRN PRN syringe 05/28/17 Rx Furosemide Inj [Lasix Inj] 60 mg IV Q8H vial 05/28/17 Rx Glucagon 1 mg IM PRN PRN vial 05/28/17 Rx Insulin Regular [HumuLIN R] See Protocol SUBCUT ACHS unit 05/28/17 Rx Nicotine 21 mg/24 Hr Patch 1 patch TRANSDERM DAILY PRN patch 05/28/17 Rx [Nicoderm CQ 21 mg/24 hr Patch] Ondansetron Inj [Zofran Inj] 4 mg IV Q4H PRN vial 05/28/17 Rx Pantoprazole Tab [Protonix Tab] 40 mg PO DAILY tablet 05/28/17 Rx Review of System - Review of System ROS unobtainable: due to mental status Medical,Surgical,& Family Hx - Medical History Cardio: History of: CHF, CAD, Hypertension, Cardiovascular Problems Psychological: No history of: Psychiatric Problems Neurology: No history of: Cerebrovascular Accident, Seizures, TIA HEENT: No history of: Ear Problem, Eye Problem Endocrine: History of: Diabetes Mellitus (NIDDM) Respiratory: No history of: Asthma, COPD Renal: No history of: Renal Problems Genitourinary: No history of: Problems Gastrointestinal: No history of: GI Problems Musculoskeletal: No history of: Back/Neck Problems, Musculoskeletal Problems Hematology: No history of: Anemia, Bleeding Problems, Clotting Problems Other: No history of: Cancer - Surgical History Cardiac Surgeries: Sugical HX of: Cardiac Surgery (bypass 19 years ago) Thoracic Surgeries: Patient denies;: Organ Transplant - Family History Family History: Reports;: Family Cancer, Family Diabetes (mother), Family Heart Disease (father), Family Hypertension (father) - Social History Smoking Status: Current every day smoker Frequency of Alcohol Use: None Type of Drug Use: None Marital Status: Single Lives With:: Alone Functional capacity: independent ambulation Exam Vital Signs: Vital Signs Temperature 98.2 F 06/16/17 21:06 Pulse Rate 60 06/16/17 21:06 Respiratory Rate 18 06/16/17 21:06 Blood Pressure 80/50 06/16/17 21:06 O2 Sat by Pulse Oximetry 96 06/16/17 20:49 - General General appearance: alert, in no apparent distress - Head Head exam: Present: atraumatic, normocephalic - Eye Eye exam: Present: PERRL, EOMI - ENT ENT exam: Present: mucous membranes dry. Absent: mucous membranes moist - Neck Neck exam: Present: full ROM, trachea midline - Chest Chest inspection: Present: symmetric chest wall rise. Absent: tenderness (left anterior chest wall has incision of pacemaker with no signs of infections) - Respiratory Respiratory exam: Present: normal lung sounds bilaterally. Absent: respiratory distress - Cardiovascular Cardiovascular exam: Present: regular rate, normal rhythm, normal heart sounds - Abdominal Exam Abdominal exam: Present: soft, normal bowel sounds. Absent: tenderness - Extremities Exam Extremities exam: Present: full ROM. Absent: tenderness, pedal edema - Neurological Exam Neurological exam: Present: alert, oriented X3, CN II-XII intact, other ( confused, making no sense but is oriented x3). Absent: motor sensory deficit - Skin Skin exam: Present: warm (feels febrile but no fever), dry. Absent: intact ( poor skin tugor) Course - Consultations Consultation #1: Hospitalist will admit patient Time: 00:09 Results - Labs CBC & BMP: 06/16/17 21:44 06/16/17 21:44 Lab Results: I have reviewed the patients labs Labs: Laboratory Tests 06/16/17 06/16/17 21:44 21:44 Sodium 125 L Potassium 4.2 Chloride 91 L Carbon Dioxide 25 Anion Gap 13.2 BUN 36 H Creatinine 1.40 H GFR Calculation 56 BUN/Creatinine Ratio 25.00 H Glucose 163 H Calculated Osmolality 262.5 L Lactic Acid 1.8 Calcium 9.1 Magnesium 2.3 Total Bilirubin 0.90 AST 42 H ALT 39 Alkaline Phosphatase 87 Ammonia 36 H Troponin I 0.035 Total Protein 6.1 L Albumin 3.3 L Globulin 2.8 Albumin/Globulin Ratio 1.1 Prolactin 5.4 Serum Alcohol < 15 L Laboratory Tests 06/16/17 21:44 ESR Keron[place] 11 - EKG EKG results: interpreted by DANIELLED (Atrial Flutter/Tachycardia; Intraventricular conduction delay; Anteroseptal myocardial infraction, of indeterminate age), sinus rhythm (57) Critical Care Time Critical Care Time: Yes Total Critical Care Time: 60 Disposition Clinical Impression: Altered mental status, Cardiomyopathy, CAD (coronary artery disease), Recent ICD placement, Cannabis abuse, Chronic prescription opiate use, Hyponatremia, Confusion, Hypotension Case discussed with: patient, patient's family Disposition: Still a Patient Condition: Guarded Time of Disposition: 00:10
--- NOTE | 2017-06-16 22:42 | EKG Report ---
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
[2017-06-16 22:54] LABS: Sedimentation Rate-Westergren 11 MM/HR (0-20)
[2017-06-16 23:34] LABS: Apearance,Urine CLEAR (Clear); Bilirubin,Urine Negative (Negative); Blood, Urine Negative (Negative); Glucose,Urine (UA) 150 mg/dL (Negative); Ketones,Urine Negative (Negative); Nitrite,Urine Negative (Negative); Protein,Urine Negative; RBC,Urine 1 /HPF (0-4); Squamous Epithelial Cell,Urine Occasional /HPF (0-10); Urine Color Yellow (Yellow); Urine Specific Gravity 1.016 (1.001-1.035); Urine Urobilinogen < 2.0 EU/DL (0.2-1.0); WBC,Urine 2 /HPF (0-6)
[2017-06-16 23:38] LABS: Barbiturates Screen,Urine Negative (Negative); Benzodiazepines Screen,Urine Negative (Negative); Cannabinoid Screen,Urine Positive (Negative); Opiate Screen,Urine Positive (Negative); Phencyclidine Screen,Urine Negative (Negative)
--- NOTE | 2017-06-17 01:00 | Hospitalist History & Physical ---
Assessment and Plan - Time spent with patient Time spent with patient: Greater than 30 minutes (1) Altered mental status Status: Acute Assessment and plan: Patient has had altered mental status. At this time he is awake alert and oriented 3. This may be secondary to multifactorial etiologies including mild hyponatremia, medication effect. We will continue to provide neuro checks and avoid any potentially offending drugs. We will cautiously hydrate overnight and follow-up laboratory studies in the a.m. Current Visit: Yes (2) Atrial flutter Status: Acute Assessment and plan: Patient currently is atrial flutter. Prior EKG on record does not reveal this. He is currently rate controlled. He is reportedly now on Xarelto which we will continue. Current Visit: Yes (3) Acute kidney injury Status: Acute Assessment and plan: Patient has had rising creatinine from 1-1.4 since previous admission. We will cautiously hydrate as he appears clinically dry. Current Visit: Yes (4) Cardiomyopathy Status: Chronic Assessment and plan: Patient has history of ischemic cardiomyopathy with ejection fraction of 15%. He is now status post AICD. We will hold his diuretics and cautiously hydrate tonight. We will hold his antihypertensive therapy and afterload reduction in view of his hypotension. Will consult cardiology to assist in the a.m. Current Visit: Yes (5) Hyponatremia Status: Acute Assessment and plan: Cautiously hydrating tonight and holding his diuretic therapy. We will follow- up BMP in a.m. Current Visit: Yes (6) Cannabis abuse Status: Acute Assessment and plan: Have discussed cessation and avoidance. Current Visit: Yes (7) CAD (coronary artery disease) Status: Chronic Assessment and plan: No evidence of active chest pain or ACS at this time. Continue current therapy. Current Visit: Yes Qualifiers: Coronary Disease-Associated Artery/Lesion type: [place] artery [place] vs. transplanted heart: [place] heart Associated angina: without angina Qualified Code(s): I25.10 - Atherosclerotic heart disease of [place] coronary artery without angina pectoris (8) Diabetes mellitus Status: Chronic Assessment and plan: Continue current therapy with Accu-Cheks and sliding scale insulin. Current Visit: No Qualifiers: Diabetes mellitus type: type 2 (9) Mitral regurgitation Status: Chronic Assessment and plan: Cardiology has been consulted. Current Visit: No Qualifiers: Cardiac valve disease etiology: nonrheumatic Qualified Code(s): I34.0 - Nonrheumatic mitral (valve) insufficiency History of Present Illness Chief complaint: Confusion History of present illness: Mr. Mcneil is a 66 year old white male with a history of ischemic cardiomyopathy (with ejection fraction of 15% per recent studies) status post AICD placement who was noted to have some intermittent confusion today as well as a low blood pressure. He denies any chest pain, shortness of breath, abdominal pain, nausea , vomiting, diarrhea, constipation, melena, hematochezia, hematemesis, dysuria, hematuria, urinary frequency urgency or incontinence. He was seen by specialty finishing utility person last week and had some of his medications altered however he cannot identify these fours. His son is here with him and states that his pills were mass and was not sure if they were being taken completely correctly. Patient did get a [place] [facility] today and was evaluated and discharged there however he remains confused with some conversation and was evaluated at [place] emergency department. He has noted to be relatively hypotensive with systolic blood pressures in the 70-80 range. He will be admitted for cautious hydration and further observation at this time. His primary care provider is Dr. Neptali Whitman. Home Medications Medication Instructions Recorded Confirmed Type Nitroglycerin 0.4 mg SL DIRECTED PRN 05/24/17 05/25/17 History metFORMIN [Glucophage] 500 mg PO BID W/MEALS 05/24/17 05/25/17 History Aspirin EC Tab 81 mg PO QAM 05/25/17 05/25/17 History Carvedilol [Coreg] 6.25 mg PO QAM 05/25/17 05/25/17 History Lisinopril [Prinivil] 10 mg PO QAM 05/25/17 05/25/17 History Spironolactone [Aldactone] 25 mg PO QAM 05/25/17 05/25/17 History Dextrose 50% [D50] 25 gm IV PRN PRN syringe 05/28/17 Rx Furosemide Inj [Lasix Inj] 60 mg IV Q8H vial 05/28/17 Rx Glucagon 1 mg IM PRN PRN vial 05/28/17 Rx Insulin Regular [HumuLIN R] See Protocol SUBCUT ACHS unit 05/28/17 Rx Nicotine 21 mg/24 Hr Patch 1 patch TRANSDERM DAILY PRN patch 05/28/17 Rx [Nicoderm CQ 21 mg/24 hr Patch] Ondansetron Inj [Zofran Inj] 4 mg IV Q4H PRN vial 05/28/17 Rx Pantoprazole Tab [Protonix Tab] 40 mg PO DAILY tablet 05/28/17 Rx Allergies Allergy/AdvReac Type Severity Reaction Status Date / Time No Known Allergies Allergy Verified 05/25/17 19:11 Medical,Surgical,& Family Hx - Medical History Cardio: History of: CHF (Ischemic cardiomyopathy with ejection fraction of 15%) , CAD, Hypertension, Cardiovascular Problems Psychological: No history of: Psychiatric Problems Neurology: No history of: Cerebrovascular Accident, Seizures, TIA HEENT: No history of: Ear Problem, Eye Problem Endocrine: History of: Diabetes Mellitus (NIDDM) Respiratory: No history of: Asthma, COPD Renal: No history of: Renal Problems Genitourinary: No history of: Problems Gastrointestinal: No history of: GI Problems Musculoskeletal: No history of: Back/Neck Problems, Musculoskeletal Problems Hematology: No history of: Anemia, Bleeding Problems, Clotting Problems Other: No history of: Cancer - Surgical History Cardiac Surgeries: Sugical HX of: Cardiac Surgery (bypass 19 years ago) Thoracic Surgeries: Patient denies;: Organ Transplant - Family History Family History: Reports;: Family Cancer, Family Diabetes (mother), Family Heart Disease (father), Family Hypertension (father) - Social History Smoking Status: Current every day smoker Frequency of Alcohol Use: None Type of Drug Use: None 12 point system: reviewed and no additional remarkable complaints except as stated Exam - Constitutional Vitals: Period Temp Pulse Resp BP Sys/[place]res Pulse Ox Last 24 Hr 98.2 F-98.2 F 60-60 14-18 80-80/50-50 96 General appearance: no acute distress - Head Head exam: Present: normocephalic, atraumatic - Eye Eye exam: Present: EOMI. Absent: scleral icterus Pupils: Present: [place] - ENT ENT exam: Present: normal exam - Neck Neck exam: Present: normal inspection - Respiratory Respiratory exam: Present: clear to auscultation bilaterally. Absent: rales, rhonchi, wheezes - Cardiovascular Cardiovascular exam: Present: regular rate and rhythm. Absent: gallop, tachycardia - GI/Abdominal GI/Abdominal exam: Present: normal bowel sounds, soft. Absent: mass, tenderness , rebound - Extremities Exam Extremities exam: Present: normal capillary refill. Absent: calf tenderness, edema - Back Exam Back exam: Present: normal inspection - Neurological Exam Neurological exam: Present: alert, oriented X3, CN II-XII intact. Absent: motor sensory deficit - Psychiatric Psychiatric exam: Present: normal affect, normal mood, other (Lethargic) - Skin Skin exam: Present: warm, dry. Absent: erythema, petechiae, rash Results - Labs CBC & BMP: 06/16/17 21:44 06/16/17 21:44 Lab Results: I have reviewed the past 24 hour labs - Impressions EKG reveals atrial flutter - Diagnostic Findings Procedure: Chest x-ray: report reviewed by me, CT: report reviewed by me (CT head reveals extensive periventricular white matter microvascular changes.)
[2017-06-17] MEDS ORDERED: SODIUM CHLORIDE 0.9% 1,000 ML IV SCH (02:51)
[2017-06-17] MEDS ORDERED: DEXTROSE 50% 25 GM/50 ML SYRINGE IV PRN (02:51)
[2017-06-17] MEDS ORDERED: SODIUM CHLORIDE 0.9% 250 ML IV ONE (02:51)
[2017-06-17] MEDS ORDERED: GLUCAGON 1 MG VIAL IM PRN (02:51)
[2017-06-17] MEDS ORDERED: NITROGLYCERIN SL 0.4 MG TABLET SL PRN (02:51)
[2017-06-17 06:34] LABS: Basophils % 0.2 % (0.0-0.8); Eosinophils # 0.2 10*3/uL (0.0-0.87); Eosinophils % 1.4 % (0.00-10.9); Hematocrit 32.5 VOL% (42.0-52.0); Hemoglobin 11.4 GM/DL (14.0-18.0); Immature Granulocytes % 0.6 %; Immature Granulocytes Absolute 0.07 #; Lymphocytes # 1.2 10*3/uL (1.4-4.0); Mean Corpuscular HGB Conc 35.1 GM/DL (32-36); Mean Corpuscular Hemoglobin 30 PG (27-34); Mean Corpuscular Volume 84.6 FL (87-102); Mean Platelet Volume 9.6 FL (9.6-12.0); Monocytes # 1.3 10*3/uL (0.11-0.8); Monocytes % 11.3 % (1.7-12.7); Neutrophils % 76.5 % (38.7-73.9); Platelet Count 205 T/CUMM (130-400); Red Blood Count 3.84 MC/CUMM (3.8-5.5); White Blood Count 11.7 T/CUMM (4-12)
--- NOTE | 2017-06-17 06:54 | CT Report ---
CT head/brain wo con Indication: Mental status changes Comparison: None Technique: Multiple axial tomographic images of the brain were obtained without the use of intravenous contrast. Findings: Midline structures are nondisplaced. There is no convincing evidence of acute intracranial hemorrhage . No convincing evidence of hydrocephalus. Moderate periventricular and subcortical hypoattenuation noted which is nonspecific but consistent with chronic microvascular ischemic change. Demyelinating process and vasculitis less likely considerations. Moderate global volume loss present. Atherosclerotic calcifications demonstrated. The visualized paranasal sinuses and bilateral mastoid air cells are predominantly clear. IMPRESSION: No acute intracranial abnormality demonstrated. Probable chronic microvascular ischemic change and volume loss. If clinically appropriate, MRI could be obtained for further evaluation. Preliminary report was issued by [facility]. The CT exam was performed using one or more of the following dose reduction techniques: Automated exposure control, adjustment of the mA and/or kV according to patient size, or use of iterative reconstruction technique. PROCEDURE INTERPRETED AT [facility] DEPARTMENT OF RADIOLOGY Final Report Signed by: Dr Jose Francisco Jerry
[2017-06-17 07:02] LABS: Calcium 8.4 MG/DL (8.5-10.1); Osmolality,Calculated 262.8 MOS/KG (273-304); Potassium 4.4 MMOL/L (3.5-5.1)
--- NOTE | 2017-06-17 07:34 | XRay Report ---
Exam: XR chest 1V portable Date: 06/16/2017 9:45 PM Indication: Altered mental status Comparison: 05/25/2017 Technical: AP Findings: Cardiomegaly is present with previous sternotomy. A left-sided cardiac pacing device with a right ventricular lead is present. No obvious infiltrate or effusion. The mediastinum and bony structures are intact. Underlying alveolar edema has improved when compared to previous exam. Impression: 1. Cardiomegaly and previous sternotomy and stepsister cardiac pacing device 2. Resolving pulmonary edema PROCEDURE INTERPRETED AT [facility] DEPARTMENT OF RADIOLOGY Final Report Signed by: Dr. Carroll Lima
[2017-06-17] MEDS: INSULIN LISPRO 100 UNIT/ML SUBCUT SCH ×4 (07:40→20:36)
[2017-06-17] MEDS ORDERED: RIVAROXABAN 20 MG TABLET PO SCH (08:00)
[2017-06-17] MEDS: metFORMIN 500 MG TABLET PO SCH ×2 (08:31→17:33)
[2017-06-17] MEDS: SPIRONOLACTONE 25 MG TABLET PO SCH (08:31)
[2017-06-17] MEDS: ASPIRIN EC 81 MG TABLET PO SCH (08:31)
[2017-06-17] MEDS: PANTOPRAZOLE 40 MG TABLET PO SCH (08:32)
[2017-06-17] MEDS: APIXABAN 5 MG TABLET PO SCH ×2 (08:32→20:36)
--- NOTE | 2017-06-17 08:32 | Cardiology Consult Note ---
Assessment and Plan (1) Altered mental status Status: Acute Assessment and plan: 1. 66-year-old WM with previous hypertension, DM, status post CABG approximately 1997 (DOWELL and vein grafts patent 02 May 2017) followed by Dr. Singh with severe ischemic cardiomyopathy (EF 20-25%) and severe mitral regurgitation with patent grafts (diffuse distal/small vessel disease not amenable to percutaneous or surgical intervention) April 2017, when he had severe pulmonary hypertension and was referred to [facility] for mitral valve clip, was not placed due to instability and he is to get a pacemaker placed ( presumably ICD/biventricular pacemaker 2 weeks ago by his report), and reports he was told to increase his Lasix this last Saturday (probably had early volume overload indicator on his pacemaker), who is really here for having hallucinations, although today seems to be alert and oriented with no complaints. 2. Hyponatremia is certainly possible cause of his mental status changes, as is illicit drug use, or prescription or [id number] drugs? His mental status seems to be quite good today, will continue to monitor. 3. Given his sodium is doing well and he has prone to volume overload, will discontinue IV fluids at this time. 4. His blood pressure systolic is in the 90s, and his heart rate is in the 60s , but given his severe cardiomyopathy he would likely benefit from restarting his Coreg 3.125 mg twice daily; his target blood pressure is much lower given his severe cardiomyopathy and MR. 5. He will be transferred to telemetry from cardiac standpoint. 6. Cardioversion could be considered at some point if he is on anticoagulation for 3 weeks? This is not urgent now as he seems to be stable hemodynamically and is asymptomatic. Current Visit: Yes (2) Atrial flutter Status: Acute Current Visit: Yes (3) Cannabis abuse Status: Acute Current Visit: Yes (4) Hyponatremia Status: Acute Current Visit: Yes (5) CAD (coronary artery disease) Status: Chronic Current Visit: Yes Qualifiers: Coronary Disease-Associated Artery/Lesion type: [place] artery [place] vs. transplanted heart: [place] heart Associated angina: without angina Qualified Code(s): I25.10 - Atherosclerotic heart disease of [place] coronary artery without angina pectoris (6) Cardiomyopathy Status: Chronic Current Visit: Yes (7) Mitral regurgitation Status: Chronic Current Visit: No Qualifiers: Cardiac valve disease etiology: nonrheumatic Qualified Code(s): I34.0 - Nonrheumatic mitral (valve) insufficiency (8) Pulmonary hypertension Status: Chronic Current Visit: No History of Present Illness - Consult Narrative History of present illness: Mr. Mcneil is a 66 year old male who was discharged late last month and had follow-up at [facility] in [place]. He is being evaluated for mitral clip given his severe mitral regurgitation and severely reduced LV systolic function. He has atrial flutter of some duration, and at [facility] he was decided to be unstable for a clip and was given a pacemaker (presumably bi V pacemaker?). Follow with Dr. Singh. He reports he was called by [facility] nursing staff to increase his Lasix this weekend. He reportedly was having some mental status issues and hearing and seeing things that were not there and reportedly calling people inappropriately so I am told is suffering was taken by his family. Today he seems alert and oriented and is a fairly good historian although he is aware of the hallucinatory ideation he was having as well as his problems with memory. He is not having any chest discomfort or shortness of breath. He reported had a sodium of 119 prior to coming here and is now increased to 130 this morning up from the mid 120s. He denies any chest discomfort shortness of breath. He is not having presyncope or syncope. He reports he was changed to Eliquis and has been taking at home. CC: Holly Hess MD - Home Medications and Allergies Home Medications: Home Medications Medication Instructions Recorded Confirmed Type Nitroglycerin 0.4 mg SL DIRECTED PRN 05/24/17 06/17/17 History metFORMIN [Glucophage] 500 mg PO BID W/MEALS 05/24/17 06/17/17 History Aspirin EC Tab 81 mg PO QAM 05/25/17 06/17/17 History Spironolactone [Aldactone] 25 mg PO QAM 05/25/17 06/17/17 History Amiodarone Tab [Cordarone Tab] 200 mg PO BID 06/17/17 06/17/17 History Apixaban [Eliquis] 5 mg PO BID 06/17/17 06/17/17 History Atorvastatin [Lipitor] 80 mg PO BEDTIME 06/17/17 06/17/17 History Carvedilol [Coreg] 3.125 mg PO BID 06/17/17 06/17/17 History Furosemide Tab [Lasix Tab] 40 mg PO BID DIURETIC 06/17/17 06/17/17 History Allergies/Adverse Reactions: Allergies Allergy/AdvReac Type Severity Reaction Status Date / Time No Known Allergies Allergy Verified 05/25/17 19:11 Medical,Surgical,& Family Hx - Medical History Cardio: History of: CHF (Ischemic cardiomyopathy with ejection fraction of 15%) , CAD, Hypertension, Pacemaker, Cardiovascular Problems Psychological: No history of: Psychiatric Problems Neurology: No history of: Cerebrovascular Accident, Seizures, TIA HEENT: No history of: Ear Problem, Eye Problem Endocrine: History of: Diabetes Mellitus (NIDDM) Respiratory: No history of: Asthma, COPD Renal: No history of: Renal Problems Genitourinary: No history of: Problems Gastrointestinal: No history of: GI Problems Musculoskeletal: No history of: Back/Neck Problems, Musculoskeletal Problems Hematology: No history of: Anemia, Bleeding Problems, Clotting Problems Other: No history of: Cancer - Surgical History Cardiac Surgeries: Sugical HX of: Cardiac Catheterization ([facility] PM Defib implant 05/2017), Cardiac Surgery (bypass 19 years ago) Thoracic Surgeries: Patient denies;: Organ Transplant - Family History Family History: Reports;: Family Cancer, Family Diabetes (mother), Family Heart Disease (father), Family Hypertension (father) - Social History Smoking Status: Current every day smoker Frequency of Alcohol Use: None Type of Drug Use: Marijuana Physical Examination Vital Signs Temp Pulse Resp BP Pulse Ox 98.2 F 60 14 80/50 96 06/16/17 20:49 06/16/17 20:49 06/16/17 20:49 06/16/17 20:49 06/16/17 20:49 General: Present: Appears Well, No Apparent Distress Cardiac: Present: Reg Rate and Rhythm, Systolic Murmur Lungs: Present: Normal Exam, Clear Ascult./Percussion Abdomen: Present: Soft. Absent: Tender Skin: Present: Clear Extremities: Present: No Cyanosis. Absent: Edema Result/EKG - Labs CBC & BMP: 06/17/17 05:22 06/17/17 05:22 Labs: Laboratory Results - last 24 hr 06/16/17 06/16/17 06/16/17 20:51 21:24 21:24 WBC RBC Hgb Hct MCV MCH MCHC RDW Plt Count MPV Neut % (Auto) Lymph % (Auto) [place] % (Auto) Eos % (Auto) Baso % (Auto) Neut # (Auto) Lymph # (Auto) [place] # (Auto) Eos # (Auto) Baso # (Auto) Immature Gran % Nucleated RBC % Immature Gran # Nucleated RBCs # Immature Plt Fraction ESR Westergren INR PT Patient/Control Mix Sodium Potassium Chloride Carbon Dioxide Anion Gap BUN Creatinine GFR Calculation BUN/Creatinine Ratio Glucose POC Glucose 199 H Calculated Osmolality Lactic Acid Calcium Magnesium Total Bilirubin AST ALT Alkaline Phosphatase Ammonia Troponin I Total Protein Albumin Globulin Albumin/Globulin Ratio Prolactin Urine Color Yellow Urine Appearance Clear Urine pH 5.0 Ur Specific [place] 1.016 Urine Protein Negative Urine Glucose (UA) 150 Urine Ketones Negative Urine Blood Negative Urine Nitrate Negative Urine Bilirubin Negative Urine Urobilinogen < 2.0 H Urine Leukocytes Negative Urine RBC 1 Urine WBC 2 Ur Squamous Epith Cells Occasional Ur Culture Indicated? Not indicated Urine Opiates Screen Positive H Ur Barbiturates Screen Negative Ur Phencyclidine Scrn Negative U Amphetamine/Methamph Negative U Benzodiazepines Scrn Negative U Cocaine Metab Screen Negative U Cannabinoids Screen Positive H Serum Alcohol Blood Type Antibody Screen 06/16/17 06/16/17 06/16/17 21:44 21:44 21:44 WBC 14.7 H RBC 4.20 Hgb 12.5 L Hct 35.0 L MCV 83.3 L MCH 30 MCHC 35.7 RDW 12.8 Plt Count 224 MPV 9.4 L Neut % (Auto) 82.2 H Lymph % (Auto) 7.1 L [place] % (Auto) 9.0 Eos % (Auto) 1.0 Baso % (Auto) 0.2 Neut # (Auto) 12.1 H Lymph # (Auto) 1.1 L [place] # (Auto) 1.3 H Eos # (Auto) 0.2 Baso # (Auto) 0.0 Immature Gran % 0.5 Nucleated RBC % 0.0 Immature Gran # 0.07 Nucleated RBCs # 0.00 Immature Plt Fraction 0.0 ESR Westergren 11 INR 1.1 PT Patient/Control Mix 11.4 Sodium 125 L Potassium 4.2 Chloride 91 L Carbon Dioxide 25 Anion Gap 13.2 BUN 36 H Creatinine 1.40 H GFR Calculation 56 BUN/Creatinine Ratio 25.00 H Glucose 163 H POC Glucose Calculated Osmolality 262.5 L Lactic Acid 1.8 Calcium 9.1 Magnesium 2.3 Total Bilirubin 0.90 AST 42 H ALT 39 Alkaline Phosphatase 87 Ammonia 36 H Troponin I 0.035 Total Protein 6.1 L Albumin 3.3 L Globulin 2.8 Albumin/Globulin Ratio 1.1 Prolactin Urine Color Urine Appearance Urine pH Ur Specific [place] Urine Protein Urine Glucose (UA) Urine Ketones Urine Blood Urine Nitrate Urine Bilirubin Urine Urobilinogen Urine Leukocytes Urine RBC Urine WBC Ur Squamous Epith Cells Ur Culture Indicated? Urine Opiates Screen Ur Barbiturates Screen Ur Phencyclidine Scrn U Amphetamine/Methamph U Benzodiazepines Scrn U Cocaine Metab Screen U Cannabinoids Screen Serum Alcohol < 15 L Blood Type Antibody Screen 06/16/17 06/16/17 06/17/17 21:44 21:44 05:22 WBC 11.7 RBC 3.84 Hgb 11.4 L Hct 32.5 L MCV 84.6 L MCH 30 MCHC 35.1 RDW 13.0 Plt Count 205 MPV 9.6 Neut % (Auto) 76.5 H Lymph % (Auto) 10.0 L [place] % (Auto) 11.3 Eos % (Auto) 1.4 Baso % (Auto) 0.2 Neut # (Auto) 9.0 H Lymph # (Auto) 1.2 L [place] # (Auto) 1.3 H Eos # (Auto) 0.2 Baso # (Auto) 0.0 Immature Gran % 0.6 Nucleated RBC % 0.0 Immature Gran # 0.07 Nucleated RBCs # 0.00 Immature Plt Fraction 0.0 ESR Westergren INR PT Patient/Control Mix Sodium Potassium Chloride Carbon Dioxide Anion Gap BUN Creatinine GFR Calculation BUN/Creatinine Ratio Glucose POC Glucose Calculated Osmolality Lactic Acid Calcium Magnesium Total Bilirubin AST ALT Alkaline Phosphatase Ammonia Troponin I Total Protein Albumin Globulin Albumin/Globulin Ratio Prolactin 5.4 Urine Color Urine Appearance Urine pH Ur Specific [place] Urine Protein Urine Glucose (UA) Urine Ketones Urine Blood Urine Nitrate Urine Bilirubin Urine Urobilinogen Urine Leukocytes Urine RBC Urine WBC Ur Squamous Epith Cells Ur Culture Indicated? Urine Opiates Screen Ur Barbiturates Screen Ur Phencyclidine Scrn U Amphetamine/Methamph U Benzodiazepines Scrn U Cocaine Metab Screen U Cannabinoids Screen Serum Alcohol Blood Type A POSITIVE Antibody Screen Negative 06/17/17 06/17/17 05:22 07:13 WBC RBC Hgb Hct MCV MCH MCHC RDW Plt Count MPV Neut % (Auto) Lymph % (Auto) [place] % (Auto) Eos % (Auto) Baso % (Auto) Neut # (Auto) Lymph # (Auto) [place] # (Auto) Eos # (Auto) Baso # (Auto) Immature Gran % Nucleated RBC % Immature Gran # Nucleated RBCs # Immature Plt Fraction ESR Westergren INR PT Patient/Control Mix Sodium 130 L Potassium 4.4 Chloride 95 L Carbon Dioxide 28 Anion Gap 11.4 BUN 27 H Creatinine 1.00 GFR Calculation 83 BUN/Creatinine Ratio 27.00 H Glucose 71 L POC Glucose 84 Calculated Osmolality 262.8 L Lactic Acid Calcium 8.4 L Magnesium Total Bilirubin AST ALT Alkaline Phosphatase Ammonia Troponin I Total Protein Albumin Globulin Albumin/Globulin Ratio Prolactin Urine Color Urine Appearance Urine pH Ur Specific [place] Urine Protein Urine Glucose (UA) Urine Ketones Urine Blood Urine Nitrate Urine Bilirubin Urine Urobilinogen Urine Leukocytes Urine RBC Urine WBC Ur Squamous Epith Cells Ur Culture Indicated? Urine Opiates Screen Ur Barbiturates Screen Ur Phencyclidine Scrn U Amphetamine/Methamph U Benzodiazepines Scrn U Cocaine Metab Screen U Cannabinoids Screen Serum Alcohol Blood Type Antibody Screen Quality Measures - VTE Contraindication to Pharmacological VTE Prophylaxis: Already on Theraputic Agent , No Prophylaxis Needed
[2017-06-17] MEDS: CARVEDILOL 3.125 MG TABLET PO SCH ×2 (08:33→20:36)
[2017-06-18 05:47] LABS: Basophils % 0.2 % (0.0-0.8); Eosinophils # 0.3 10*3/uL (0.0-0.87); Eosinophils % 2.1 % (0.00-10.9); Hematocrit 32.3 VOL% (42.0-52.0); Hemoglobin 11.3 GM/DL (14.0-18.0); Immature Granulocytes % 0.6 %; Immature Granulocytes Absolute 0.07 #; Lymphocytes # 1.2 10*3/uL (1.4-4.0); Lymphocytes % 9.9 % (21.2-54.2); Mean Corpuscular Hemoglobin 30 PG (27-34); Mean Corpuscular Volume 85.9 FL (87-102); Monocytes # 1.4 10*3/uL (0.11-0.8); Monocytes % 11.1 % (1.7-12.7); Neutrophils # 9.3 10*3/uL (1.4-7.4); Neutrophils % 76.1 % (38.7-73.9); Platelet Count 202 T/CUMM (130-400); Red Blood Count 3.76 MC/CUMM (3.8-5.5); Red Cell Distribution Width 13.2 % (9.3-17.3); White Blood Count 12.2 T/CUMM (4-12)
[2017-06-18 06:17] LABS: Calcium 8.2 MG/DL (8.5-10.1); Magnesium 2.1 MG/DL (1.8-2.4); Osmolality,Calculated 265.5 MOS/KG (273-304); Potassium 4.7 MMOL/L (3.5-5.1)
--- NOTE | 2017-06-18 08:05 | Cardiology Progress Note ---
Assessment and Plan - Time spent with patient Time spent with patient: Less than 30 minutes (1) Atrial flutter Status: Acute Assessment and plan: See plan of care listed below. Current Visit: Yes (2) Altered mental status Status: Acute Assessment and plan: See plan of care listed below. Current Visit: Yes (3) Hyponatremia Status: Acute Assessment and plan: See plan of care listed below. Current Visit: Yes (4) CAD (coronary artery disease) Status: Chronic Assessment and plan: See plan of care listed below. Current Visit: Yes Qualifiers: Coronary Disease-Associated Artery/Lesion type: [place] artery [place] vs. transplanted heart: [place] heart Associated angina: without angina Qualified Code(s): I25.10 - Atherosclerotic heart disease of [place] coronary artery without angina pectoris (5) Cardiomyopathy Status: Chronic Assessment and plan: See plan of care listed below. Current Visit: Yes Qualifiers: Cardiomyopathy type: ischemic Qualified Code(s): I25.5 - Ischemic cardiomyopathy (6) Mitral regurgitation Status: Chronic Assessment and plan: See plan of care listed below. Current Visit: No Qualifiers: Cardiac valve disease etiology: nonrheumatic Qualified Code(s): I34.0 - Nonrheumatic mitral (valve) insufficiency (7) Cannabis abuse Status: Chronic Assessment and plan: See plan of care listed below. Current Visit: Yes (8) Diabetes mellitus Status: Chronic Assessment and plan: See plan of care listed below. Current Visit: No Qualifiers: Diabetes mellitus type: type 2 (9) Hypertension Status: Chronic Assessment and plan: See plan of care listed below. Current Visit: No Qualifiers: Hypertension type: essential hypertension Qualified Code(s): I10 - Essential (primary) hypertension Cardiology - PN: Subj Interval history: Dermatology Nurse: Dr. Singh SUMMARY: Mr. Mcneil is a 66 y/o WM who presented with altered mental status and hyponatremia. He reports he was told to increase his Lasix recently. He has a history of hypertension, DM, status post CABG approximately 1997 ([facility] and vein grafts patent 02 May 2017) followed by Dr. Singh with severe ischemic cardiomyopathy (EF 20-25%) and severe mitral regurgitation with patent grafts ( diffuse distal/small vessel disease not amenable to percutaneous or surgical intervention) April 2017, when he had severe pulmonary hypertension and was referred to [facility] for mitral valve clip, was not placed due to instability and he is to get a pacemaker placed (presumably ICD/biventricular pacemaker 2 weeks ago by his report). 2016: Mr. Mcneil is seen up and around in his room this morning. He reports that he has not gotten much rest but overall he looks to be somewhat improved. His recollection of the events prior to admission are still unclear to him he seems to be quite disturbed by this. From a cardiac standpoint, he has been stable and he is maintaining well controlled rate and atrial flutter. He could be transferred to telemetry from a cardiac standpoint. IMPRESSION/PLAN: 1. ATRIAL FLUTTER: He remains in atrial flutter with controlled rate. Cardioversion could be considered at some point if he is on anticoagulation for 3 weeks. At this time, this is not urgent as he seems to be hemodynamically stable and has been asymptomatic. Continue Eliquis 5 mg p.o. twice daily. 2. ALTERED MENTAL STATUS: Possible etiology would include hyponatremia, illicit drug use, or prescription or [id number] drugs. He is oriented at the present time, but has some intermittent confusion. It would likely greatly benefit him to be transferred out of the ICU and into a room upstairs. 3. HYPONATREMIA: Slowly improving. His IVF were discontinued as he is prone to volume overload. 4. CORONARY ARTERY DISEASE: Patent grafts per 05/27/17 [facility] with diffuse distal/ small vessel disease not amenable to percutaneous or surgical intervention. Continue aspirin, beta shayna, statin. 5. ISCHEMIC CARDIOMYOPATHY: Reportedly, he is to have a pacemaker/ICD placed but has not scheduled this appointment yet. His Coreg 3.125 mg p.o. twice daily was resumed. His blood pressure remains borderline hypotensive at times. We will continue to monitor and adjust accordingly. 6. MITRAL REGURGITATION: Mitral valve clip was not placed due to instability and he is to get a pacemaker placed (presumably ICD/biventricular pacemaker 2 weeks ago per his report). 7. CANNABIS ABUSE: Urine drug screen this admission positive for cannabis. Patient reports using cannabis one day prior to admission. 8. DIABETES MELLITUS: He is on accuchecks and sliding scale insulin. 9. HYPERTENSION: Currently well controlled, borderline hypotensive. Will continue to monitor and adjust accordingly. Exam (Progress Note) - Constitutional Vitals: Period Temp Pulse Resp BP Sys/Valladares Pulse Ox Last 24 Hr 97.6 F-98.5 F 59-82 12-21 94-116/37-66 95-98 Exam: General appearance: Appears well. Pleasant and cooperative. Overweight, no acute distress. Head exam: Present: normal inspection, normocephalic, atraumatic. Absent: hematoma, laceration Eye exam: Present: EOMI. Absent: conjunctival injection, nystagmus, periorbital swelling, scleral icterus, laceration to eyelids, jaundice Pupils: Present: PERRL. Absent: constricted, dilated, fixed, irregular, unequal ENT exam: Present: normal exam, normal external ear exam, mucous membranes moist. Neck exam: Present: normal inspection, midline trachea. Absent: masses, lymphadenopathy, tenderness, thyromegaly Respiratory exam: Present: clear to auscultation bilaterally. Absent: accessory muscle use, chest wall tenderness, rales, rhonchi, wheezing. Cardiovascular exam: Present: regular rate and rhythm. Systolic murmur. Absent: gallop, JVD, rubs GI/Abdominal exam: Present: normal bowel sounds, soft. Absent: distended, firm , hernia, mass, tenderness. Extremities exam: Present: Normal Gait, No Clubbing, No Cyanosis, Upper Extr. Pulses 2+, Lower Extr. Pulses 2+, No edema. Capillary refill less than 3 seconds. Musculoskeletal: Present: No Fluid Collection, No Pain, Normal Range of Motion Back exam: Present: normal inspection. Absent: muscle spasm, vertebral tenderness Neurological exam: Present: awake, alert, oriented X3, Moves all extremities well without hemiparesis or paralysis. Grossly intact without resting or essential tremor Psychiatric exam: Present: normal affect, normal mood Skin exam: Present: normal color, warm, dry, intact. Left chest wall pacemaker incision well approximated, s redness, edema, or drainage. Mild ecchymosis at site. Absent: cyanosis, diaphoretic, rash, urticaria Result/EKG - Labs CBC & BMP: 06/18/17 05:38 06/18/17 05:38 Lab Results: I have reviewed the past 24 hour labs Labs: Laboratory Results - last 24 hr 06/17/17 06/17/17 06/17/17 11:09 16:19 20:18 WBC RBC Hgb Hct MCV MCH MCHC RDW Plt Count MPV Neut % (Auto) Lymph % (Auto) [place] % (Auto) Eos % (Auto) Baso % (Auto) Neut # (Auto) Lymph # (Auto) [place] # (Auto) Eos # (Auto) Baso # (Auto) Immature Gran % Nucleated RBC % Immature Gran # Nucleated RBCs # Immature Plt Fraction Sodium Potassium Chloride Carbon Dioxide Anion Gap BUN Creatinine GFR Calculation BUN/Creatinine Ratio Glucose POC Glucose 219 H 122 H 216 H Calculated Osmolality Calcium Magnesium 06/18/17 06/18/17 06/18/17 05:38 05:38 07:20 WBC 12.2 H RBC 3.76 L Hgb 11.3 L Hct 32.3 L MCV 85.9 L MCH 30 MCHC 35.0 RDW 13.2 Plt Count 202 MPV 9.0 L Neut % (Auto) 76.1 H Lymph % (Auto) 9.9 L [place] % (Auto) 11.1 Eos % (Auto) 2.1 Baso % (Auto) 0.2 Neut # (Auto) 9.3 H Lymph # (Auto) 1.2 L [place] # (Auto) 1.4 H Eos # (Auto) 0.3 Baso # (Auto) 0.0 Immature Gran % 0.6 Nucleated RBC % 0.0 Immature Gran # 0.07 Nucleated RBCs # 0.00 Immature Plt Fraction 0.0 Sodium 132 L Potassium 4.7 Chloride 99 Carbon Dioxide 27 Anion Gap 10.7 BUN 22 H Creatinine 1.00 GFR Calculation 83 BUN/Creatinine Ratio 22.00 H Glucose 87 POC Glucose 87 Calculated Osmolality 265.5 L Calcium 8.2 L Magnesium 2.1 - EKG EKG results: interpreted by me (atrial flutter) Quality Measures - VTE Contraindication to Pharmacological VTE Prophylaxis: Already on Theraputic Agent , No Prophylaxis Needed
[2017-06-18] MEDS: INSULIN LISPRO 100 UNIT/ML SUBCUT SCH ×4 (08:08→22:05)
[2017-06-18] MEDS: APIXABAN 5 MG TABLET PO SCH ×2 (08:48→22:05)
[2017-06-18] MEDS: CARVEDILOL 3.125 MG TABLET PO SCH (08:48)
[2017-06-18] MEDS: PANTOPRAZOLE 40 MG TABLET PO SCH (08:48)
[2017-06-18] MEDS: SPIRONOLACTONE 25 MG TABLET PO SCH (08:48)
[2017-06-18] MEDS: metFORMIN 500 MG TABLET PO SCH ×2 (08:48→16:45)
[2017-06-18] MEDS: ASPIRIN EC 81 MG TABLET PO SCH (08:48)
--- NOTE | 2017-06-18 11:00 | Hospitalist Progress Note ---
Assessment and Plan (1) Hypertension Status: Chronic Assessment and plan: Borderline hypotensive now Cardiology assisting Current Visit: No Qualifiers: Hypertension type: essential hypertension Qualified Code(s): I10 - Essential (primary) hypertension (2) Diabetes mellitus Status: Chronic Assessment and plan: SSI Metformin Current Visit: No Qualifiers: Diabetes mellitus type: type 2 (3) Cardiomyopathy Status: Chronic Assessment and plan: Cardiology assisting Current Visit: Yes Qualifiers: Cardiomyopathy type: ischemic Qualified Code(s): I25.5 - Ischemic cardiomyopathy (4) Altered mental status Status: Acute Assessment and plan: CT head without acute process No signs of infection Oriented x3 but remains confused Sodium is improving Check b12 and RPR Check MRI If medical work-up remains negative with no improvement, will consult bryan-psych Current Visit: Yes (5) Cannabis abuse Status: Chronic Current Visit: Yes (6) Hyponatremia Status: Acute Assessment and plan: Improving Current Visit: Yes (7) Atrial flutter Status: Acute Assessment and plan: Rate controlled Continue eliquis Cardiology assisting Current Visit: Yes (8) Acute kidney injury Status: Resolved Assessment and plan: Resolved Current Visit: Yes Hospitalist: Subjective Interval history: No acute events overnight. Patient is oriented x3 but remains confused. He is sleepy this morning. He has not been sleeping much since admission. Exam - Constitutional Vitals: Period Temp Pulse Resp BP Sys/Valladares Pulse Ox Last 24 Hr 97.6 F-98.5 F 59-94 12-21 95-116/37-66 95-98 General appearance: normal weight - Head Head exam: Present: normocephalic, atraumatic - Eye Eye exam: Present: EOMI Pupils: Present: [place] - ENT ENT exam: Present: normal exam - Neck Neck exam: Present: normal inspection - Respiratory Respiratory exam: Present: clear to auscultation bilaterally. Absent: rhonchi, wheezes - Cardiovascular Cardiovascular exam: Present: regular rate and rhythm - GI/Abdominal GI/Abdominal exam: Present: normal bowel sounds, soft. Absent: tenderness, rebound - Extremities Exam Extremities exam: Present: normal inspection - Back Exam Back exam: Present: normal inspection - Neurological Exam Neurological exam: Present: alert, oriented X3 - Psychiatric Psychiatric exam: Present: normal affect, normal mood. Absent: agitated - Skin Skin exam: Present: warm, intact Results - Labs CBC & BMP: 06/18/17 05:38 06/18/17 05:38 Quality Measures - VTE Contraindication to Pharmacological VTE Prophylaxis: Already on Theraputic Agent , No Prophylaxis Needed
[2017-06-18 12:40] LABS: Folate > 24.0 NG/ML (5.4-24.0); Vitamin B12 442 PG/ML (211-911)
[2017-06-18] MEDS ORDERED: FUROSEMIDE 40 MG TABLET PO SCH (13:30)
[2017-06-18] MEDS: FUROSEMIDE 40 MG TABLET PO SCH (16:45)
--- NOTE | 2017-06-18 18:31 | ECHO Report ---
Mu Mcneil Exam Date: 06/18/2017 14:10 Referring Physician: Technologist: Addie Larkin LRROB Age: 66 Ht (in): 68 Wt (lb): 158 Gender: M Exam Location: [facility] Echo Indications: SOB, MR, A flutter BP: 122 / 69 HR: 83 Rhythm: Atrial flutter Technical Quality: Technically difficult study IMPRESSIONS Technically adequate study 2+ left ventricular enlargement Severely reduced LV systolic function with ejection fraction estimated be 20-25% with global hypokinesis Aortic sclerosis without stenosis 3-4+ mitral regurgitation (regurgitant jet is more central but is somewhat inferiorly directed with somewhat degenerative appearing valve leaflets, and borderline anterior leaflet prolapse) 2-3+ tricuspid regurgitation with RVSP 29 mmHg plus RAP Suggest pacing wire and right heart. Rhythm strips suggest atrial flutter MEASUREMENTS (Male / Female) Normal Values 2D ECHO LV Diastolic Diameter PLAX 6.2 cm 4.2 - 5.9 / 3.9 - 5.3 cm LV Systolic Diameter PLAX 4.8 cm LV Fractional Shortening PLAX 22.5 % IVS Diastolic Thickness 1.0 cm 0.6 - 1.0 / 0.6 - 0.9 cm LVPW Diastolic Thickness 1.1 cm 0.6 - 1.0 / 0.6 - 0.9 cm RV Internal Dim ED PLAX 3.0 cm Aortic Root Diameter 2.5 cm LA Systolic Diameter LX 3.6 cm 3.0 - 4.0 / 2.7 - 3.8 cm DOPPLER TR Peak Velocity 271.0 cm/s TR Peak Gradient 29.4 mmHg FINDINGS Left Ventricle Mildly increased left ventricular cavity size. Moderately decreased left ventricular systolic function, left ventricular ejection fraction is estimated a Right Ventricle Normal right ventricular size. Right Atrium Normal right atrial size. Left Atrium Normal left atrial size. Mitral Valve Mildly thickened mitral valve with moderate mitral regurgitation. Aortic Valve Aortic valve sclerosis without stenosis or regurgitation. Tricuspid Valve Morphologically normal tricuspid valve. Trace tricuspid valve regurgitation. Tricuspid regurgitation velocities suggest a PAP of 29.4 mmHg + RAP. Pulmonic Valve Morphologically normal pulmonic valve. Trace pulmonary valve regurgitation. Pericardium No pericardial effusion. Aorta Normal size aortic root and proximal ascending aorta. Odell Farr (Electronically Signed) Final Date: 18 June 2017 18:13
[2017-06-18] MEDS ORDERED: traZODone 50 MG TABLET PO SCH (21:00)
[2017-06-18] MEDS: ATORVASTATIN 80 MG TABLET PO SCH (22:04)
[2017-06-18] MEDS: CARVEDILOL 6.25 MG TABLET PO SCH (22:05)
[2017-06-19 05:04] LABS: Basophils % 0.3 % (0.0-0.8); Eosinophils # 0.3 10*3/uL (0.0-0.87); Eosinophils % 2.5 % (0.00-10.9); Hematocrit 33.9 VOL% (42.0-52.0); Hemoglobin 11.7 GM/DL (14.0-18.0); Immature Granulocytes % 0.5 %; Immature Granulocytes Absolute 0.05 #; Lymphocytes % 9.7 % (21.2-54.2); Mean Corpuscular HGB Conc 34.5 GM/DL (32-36); Mean Corpuscular Hemoglobin 30 PG (27-34); Monocytes # 1.1 10*3/uL (0.11-0.8); Monocytes % 10.5 % (1.7-12.7); Neutrophils # 8.1 10*3/uL (1.4-7.4); Neutrophils % 76.5 % (38.7-73.9); Platelet Count 218 T/CUMM (130-400); Red Blood Count 3.94 MC/CUMM (3.8-5.5); Red Cell Distribution Width 13.3 % (9.3-17.3); White Blood Count 10.6 T/CUMM (4-12)
[2017-06-19 05:24] LABS: Calcium 8.7 MG/DL (8.5-10.1); Magnesium 1.8 MG/DL (1.8-2.4); Osmolality,Calculated 268.2 MOS/KG (273-304); Potassium 4.4 MMOL/L (3.5-5.1)
--- NOTE | 2017-06-19 09:30 | EKG Report ---
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
--- NOTE | 2017-06-19 11:54 | Hospitalist Progress Note ---
Assessment and Plan (1) Hypertension Status: Chronic Assessment and plan: Borderline hypotensive now Cardiology assisting Current Visit: No Qualifiers: Hypertension type: essential hypertension Qualified Code(s): I10 - Essential (primary) hypertension (2) Diabetes mellitus Status: Chronic Assessment and plan: SSI Metformin Current Visit: No Qualifiers: Diabetes mellitus type: type 2 (3) Cardiomyopathy Status: Chronic Assessment and plan: Cardiology assisting Current Visit: Yes Qualifiers: Cardiomyopathy type: ischemic Qualified Code(s): I25.5 - Ischemic cardiomyopathy (4) Altered mental status Status: Acute Assessment and plan: CT head without acute process No signs of infection Oriented x3 but remains confused Sodium continues to improve b12 and RPR are wnl Could not obtain MRI due to recent device placement Might require a bryan-psych consult Today patient is lethargic s/p not sleeping for days and receiving trazodone overnight Labwork this morning continues to look good Will repeat CT head today Current Visit: Yes (5) Cannabis abuse Status: Chronic Current Visit: Yes (6) Hyponatremia Status: Acute Assessment and plan: Improving Current Visit: Yes (7) Atrial flutter Status: Acute Assessment and plan: Rate controlled Continue eliquis Cardiology assisting Current Visit: Yes (8) Acute kidney injury Status: Resolved Assessment and plan: Resolved Current Visit: Yes Hospitalist: Subjective Interval history: Patient very drowsy today. He will barely open his eyes to stimulation. He has a good pulse and respiratory status is good. He did not sleep for two days while in the ICU. He finally started sleeping yesterday evening, but also received trazadone last night. Will get a CT head just in case and monitor him closely. Exam - Constitutional Vitals: Period Temp Pulse Resp BP Sys/Valladares Pulse Ox Last 24 Hr 96.4 F-98.1 F 61-89 16-23 99-129/62-82 96-98 General appearance: normal weight - Head Head exam: Present: normocephalic, atraumatic - Eye Eye exam: Present: EOMI Pupils: Present: [place] - ENT ENT exam: Present: normal exam - Neck Neck exam: Present: normal inspection - Respiratory Respiratory exam: Present: clear to auscultation bilaterally. Absent: rhonchi, wheezes - Cardiovascular Cardiovascular exam: Present: regular rate and rhythm - GI/Abdominal GI/Abdominal exam: Present: normal bowel sounds, soft. Absent: tenderness, rebound - Extremities Exam Extremities exam: Present: normal inspection - Back Exam Back exam: Present: normal inspection - Neurological Exam Neurological exam: Present: other (lethargic) - Psychiatric Psychiatric exam: Absent: agitated, anxious - Skin Skin exam: Present: warm, intact Results - Labs CBC & BMP: 06/19/17 04:41 06/19/17 04:41 Quality Measures - VTE Contraindication to Pharmacological VTE Prophylaxis: Already on Theraputic Agent , No Prophylaxis Needed
[2017-06-19] MEDS: INSULIN LISPRO 100 UNIT/ML SUBCUT SCH ×3 (12:11→21:25)
[2017-06-19] MEDS: SPIRONOLACTONE 25 MG TABLET PO SCH (12:12)
[2017-06-19] MEDS: ASPIRIN EC 81 MG TABLET PO SCH (12:12)
[2017-06-19] MEDS: CARVEDILOL 6.25 MG TABLET PO SCH ×2 (12:12→21:25)
[2017-06-19] MEDS: metFORMIN 500 MG TABLET PO SCH ×2 (12:12→16:18)
[2017-06-19] MEDS: FUROSEMIDE 40 MG TABLET PO SCH ×2 (12:12→16:18)
[2017-06-19] MEDS: APIXABAN 5 MG TABLET PO SCH ×2 (12:12→21:25)
[2017-06-19] MEDS: PANTOPRAZOLE 40 MG TABLET PO SCH (12:13)
--- NOTE | 2017-06-19 12:18 | CT Report ---
CT head/brain wo con Indication: Mental status change Comparison: CT brain dated June 16, 2017 Technique: Multiple axial tomographic images of the brain were obtained without the use of intravenous contrast. Findings: Midline structures are nondisplaced. Moderate global volume loss present. Moderate periventricular and subcortical hypoattenuation noted which is nonspecific but consistent with chronic microvascular ischemic change. Demyelinating process and vasculitis less likely considerations. There is no convincing evidence of acute intracranial hemorrhage . The visualized paranasal sinuses and bilateral mastoid air cells are predominantly clear. IMPRESSION: No acute intracranial abnormality demonstrated. Probable chronic microvascular ischemic change and volume loss. The CT exam was performed using one or more of the following dose reduction techniques: Automated exposure control, adjustment of the mA and/or kV according to patient size, or use of iterative reconstruction technique. PROCEDURE INTERPRETED AT [facility] DEPARTMENT OF RADIOLOGY Final Report Signed by: Dr Jose Francisco Jerry
--- NOTE | 2017-06-19 13:04 | Cardiology Progress Note ---
Assessment and Plan - Time spent with patient Time spent with patient: Less than 30 minutes (1) Atrial flutter Status: Acute Assessment and plan: See plan of care listed below. Current Visit: Yes (2) Altered mental status Status: Acute Assessment and plan: See plan of care listed below. Current Visit: Yes (3) Hyponatremia Status: Acute Assessment and plan: See plan of care listed below. Current Visit: Yes (4) CAD (coronary artery disease) Status: Chronic Assessment and plan: See plan of care listed below. Current Visit: Yes Qualifiers: Coronary Disease-Associated Artery/Lesion type: [place] artery [place] vs. transplanted heart: [place] heart Associated angina: without angina Qualified Code(s): I25.10 - Atherosclerotic heart disease of [place] coronary artery without angina pectoris (5) Cardiomyopathy Status: Chronic Assessment and plan: See plan of care listed below. Current Visit: Yes Qualifiers: Cardiomyopathy type: ischemic Qualified Code(s): I25.5 - Ischemic cardiomyopathy (6) Mitral regurgitation Status: Chronic Assessment and plan: See plan of care listed below. Current Visit: No Qualifiers: Cardiac valve disease etiology: nonrheumatic Qualified Code(s): I34.0 - Nonrheumatic mitral (valve) insufficiency (7) Cannabis abuse Status: Chronic Assessment and plan: See plan of care listed below. Current Visit: Yes (8) Diabetes mellitus Status: Chronic Assessment and plan: See plan of care listed below. Current Visit: No Qualifiers: Diabetes mellitus type: type 2 (9) Hypertension Status: Chronic Assessment and plan: See plan of care listed below. Current Visit: No Qualifiers: Hypertension type: essential hypertension Qualified Code(s): I10 - Essential (primary) hypertension Cardiology - PN: Subj Interval history: [place]: Dr. Singh SUMMARY: Mr. Mcneil is a 66 y/o WM who presented with altered mental status and hyponatremia. He reports he was told to increase his Lasix recently. He has a history of hypertension, DM, status post CABG approximately 1997 ([place]E[place] and vein grafts patent 02 May 2017) followed by Dr. Singh with severe ischemic cardiomyopathy (EF 20-25%) and severe mitral regurgitation with patent grafts ( diffuse distal/small vessel disease not amenable to percutaneous or surgical intervention) April 2017, when he had severe pulmonary hypertension and was referred to [place] for mitral valve clip, was not placed due to instability. He had an ICD placed 2 weeks ago. 2016: Mr. Mcneil is obtunded at the time of my exam. He had a repeat head CT showed no acute intracranial abnormality, probable chronic microvascular ischemic change and volume loss. MRI is unaobtainable due to recent device placement. It's possible he might require a bryan-psych consult. Mr. Mcneil had not slept for about 48 hours and was subsequently given Trazodone yesterday evening. I've spoken to both of his sons this morning regarding his condition. The patient's son Juan is at the bedside and called his brother Eduar. After speaking with both of his sons, I have gathered that Mr. Mcneil has smoked marijuana since high school with the same friend. His son Eduar reports he usually smokes medical grade marijuana and cannot imagine that he would have done any differently this weekend; however, the patient's grand that he normally smokes with reports that he believes Mr. Mcneil found some old marijuana of his brothers and smoked that Saturday evening. Mr. Mcneil ' brother has been for over a year. From a cardiac standpoint, he has been stable and he is maintaining well controlled rate in atrial flutter. IMPRESSION/PLAN: 1. ATRIAL FLUTTER: He remains in atrial flutter with controlled rate. Cardioversion could be considered at some point if he is on anticoagulation for 3 weeks. At this time, this is not urgent as he seems to be hemodynamically stable and has been asymptomatic. Continue Eliquis 5 mg p.o. twice daily. 2. ALTERED MENTAL STATUS: Possible etiology would include hyponatremia, illicit drug use, or prescription or [id number] drugs. He is oriented at the present time, but has some intermittent confusion. It would likely greatly benefit him to be transferred out of the ICU and into a room upstairs. 3. HYPONATREMIA: Slowly improving. His IVF were discontinued as he is prone to volume overload. 4. CORONARY ARTERY DISEASE: Patent grafts per 05/27/17 [facility] with diffuse distal/ small vessel disease not amenable to percutaneous or surgical intervention. Continue aspirin, beta shayna, statin. 5. ISCHEMIC CARDIOMYOPATHY: Reportedly, he is to have a pacemaker/ICD placed but has not scheduled this appointment yet. His Coreg 3.125 mg p.o. twice daily was resumed. His blood pressure remains borderline hypotensive at times. We will continue to monitor and adjust accordingly. 6. MITRAL REGURGITATION: Mitral valve clip was not placed due to instability and he is to get a pacemaker placed (presumably ICD/biventricular pacemaker 2 weeks ago per his report). 7. CANNABIS ABUSE: Urine drug screen this admission positive for cannabis. Patient reports using cannabis one day prior to admission. 8. DIABETES MELLITUS: He is on accuchecks and sliding scale insulin. 9. HYPERTENSION: Currently well controlled, borderline hypotensive. Will continue to monitor and adjust accordingly. Exam (Progress Note) - Constitutional Vitals: Period Temp Pulse Resp BP Sys/Valladares Pulse Ox Last 24 Hr 96.4 F-98.1 F 61-89 16-20 99-129/62-82 96-98 Exam: General appearance: Appears well. Pleasant and cooperative. Overweight, no acute distress. Head exam: Present: normal inspection, normocephalic, atraumatic. Absent: hematoma, laceration Eye exam: Absent: conjunctival injection, periorbital swelling, scleral icterus , laceration to eyelids, jaundice Pupils: Present: PERRL. Absent: constricted, dilated, fixed, irregular, unequal ENT exam: Present: normal exam, normal external ear exam, mucous membranes moist. Neck exam: Present: normal inspection, midline trachea. Absent: masses, lymphadenopathy, tenderness, thyromegaly Respiratory exam: Present: clear to auscultation bilaterally. Absent: accessory muscle use, chest wall tenderness, rales, rhonchi, wheezing. Cardiovascular exam: Present: regular rate and rhythm. Systolic murmur. Absent: gallop, JVD, rubs GI/Abdominal exam: Present: normal bowel sounds, soft. Absent: distended, firm , hernia, mass, tenderness. Extremities exam: Present: Normal Gait, No Clubbing, No Cyanosis, Upper Extr. Pulses 2+, Lower Extr. Pulses 2+, No edema. Capillary refill less than 3 seconds. Musculoskeletal: Present: No Fluid Collection, No Pain, Normal Range of Motion Back exam: Present: normal inspection. Absent: muscle spasm, vertebral tenderness Neurological exam: Present: obtunded, will not speak or follow commands, opens eyes slightly spontaneously, Moves all extremities well without hemiparesis or paralysis. No resting or essential tremor Psychiatric exam: Present: Unable to adequately assess at this time. Skin exam: Present: normal color, warm, dry, intact. Left chest wall pacemaker incision well approximated, s redness, edema, or drainage. Mild ecchymosis at site. Absent: cyanosis, diaphoretic, rash, urticaria Result/EKG - Labs CBC & BMP: 06/19/17 04:41 06/19/17 04:41 Lab Results: I have reviewed the past 24 hour labs Labs: Laboratory Results - last 24 hr 06/18/17 06/18/17 06/18/17 16:09 20:17 22:04 WBC RBC Hgb Hct MCV MCH MCHC RDW Plt Count MPV Neut % (Auto) Lymph % (Auto) [place] % (Auto) Eos % (Auto) Baso % (Auto) Neut # (Auto) Lymph # (Auto) [place] # (Auto) Eos # (Auto) Baso # (Auto) Immature Gran % Nucleated RBC % Immature Gran # Nucleated RBCs # Immature Plt Fraction Sodium Potassium Chloride Carbon Dioxide Anion Gap BUN Creatinine GFR Calculation BUN/Creatinine Ratio Glucose POC Glucose 164 H 131 H 128 H Calculated Osmolality Calcium Magnesium 06/19/17 06/19/17 06/19/17 04:41 04:41 08:09 WBC 10.6 RBC 3.94 Hgb 11.7 L Hct 33.9 L MCV 86.0 L MCH 30 MCHC 34.5 RDW 13.3 Plt Count 218 MPV 9.0 L Neut % (Auto) 76.5 H Lymph % (Auto) 9.7 L [place] % (Auto) 10.5 Eos % (Auto) 2.5 Baso % (Auto) 0.3 Neut # (Auto) 8.1 H Lymph # (Auto) 1.0 L [place] # (Auto) 1.1 H Eos # (Auto) 0.3 Baso # (Auto) 0.0 Immature Gran % 0.5 Nucleated RBC % 0.0 Immature Gran # 0.05 Nucleated RBCs # 0.00 Immature Plt Fraction 0.0 Sodium 134 L Potassium 4.4 Chloride 99 Carbon Dioxide 28 Anion Gap 11.4 BUN 15 Creatinine 0.90 GFR Calculation 95 BUN/Creatinine Ratio 16.00 Glucose 91 POC Glucose 105 Calculated Osmolality 268.2 L Calcium 8.7 Magnesium 1.8 - EKG EKG results: interpreted by me (atrial flutter) Quality Measures - VTE Contraindication to Pharmacological VTE Prophylaxis: Already on Theraputic Agent , No Prophylaxis Needed
[2017-06-19] MEDS ORDERED: LORazepam 2 MG/1 ML VIAL ONE ×2 (15:31→15:35)
[2017-06-19 15:45] LABS: Basophils % 0.2 % (0.0-0.8); Eosinophils # 0.2 10*3/uL (0.0-0.87); Hematocrit 38.6 VOL% (42.0-52.0); Hemoglobin 13.3 GM/DL (14.0-18.0); Immature Granulocytes % 0.5 %; Immature Granulocytes Absolute 0.06 #; Lymphocytes # 1.8 10*3/uL (1.4-4.0); Mean Corpuscular HGB Conc 34.5 GM/DL (32-36); Mean Corpuscular Hemoglobin 30 PG (27-34); Mean Corpuscular Volume 86.9 FL (87-102); Mean Platelet Volume 8.9 FL (9.6-12.0); Monocytes # 1.1 10*3/uL (0.11-0.8); Monocytes % 9.2 % (1.7-12.7); Neutrophils # 8.9 10*3/uL (1.4-7.4); Neutrophils % 73.1 % (38.7-73.9); Platelet Count 262 T/CUMM (130-400); Red Blood Count 4.44 MC/CUMM (3.8-5.5); Red Cell Distribution Width 13.3 % (9.3-17.3); White Blood Count 12.1 T/CUMM (4-12)
--- NOTE | 2017-06-19 15:45 | EKG Report ---
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
--- NOTE | 2017-06-19 15:59 | CT Report ---
CT of the head without contrast. Indication: Seizure. Comparison: Exam from earlier today. There is heavy calcific plaque present within the intracranial internal carotid arteries. The calvarium is intact. The included paranasal sinuses and the mastoid air cells are clear. There are moderate areas of low density present within the periventricular white matter, similar to the exam from earlier today and the exam from 3 days ago. There is no mass effect or midline shift. There is no evidence of acute hemorrhage. No cortical infarcts are seen at this time. Impression: Stable white matter changes, likely attributable to chronic microvascular ischemia. No interval change. The CT exam was performed using one or more of the following dose reduction techniques: Automated exposure control, adjustment of the mA and/or kV according to patient size, or use of iterative reconstruction technique. PROCEDURE INTERPRETED AT [facility] DEPARTMENT OF RADIOLOGY Final Report Signed by: Dr. Keira Henderson
[2017-06-19 16:26] LABS: Albumin 3.4 G/DL (3.4-5.0); Magnesium 2.1 MG/DL (1.8-2.4); Osmolality,Calculated 268.4 MOS/KG (273-304); Potassium 4.7 MMOL/L (3.5-5.1); Total Protein 6.1 G/DL (6.4-8.3); Troponin I Only 0.02 NG/ML (0.00-0.045)
--- NOTE | 2017-06-19 16:56 | XRay Report ---
Single view the chest. Indication: Chest pain. The heart is enlarged. Post median sternotomy. Calcific plaque is present within the aortic knob. Cardiac hardware is in satisfactory position. The pulmonary vasculature is normal. The lung dacosta are clear. No pneumothorax or pleural effusion. Stable osseous structures. Impression: Cardiomegaly. PROCEDURE INTERPRETED AT [facility] DEPARTMENT OF RADIOLOGY Final Report Signed by: Dr. Keira Henderson
[2017-06-19] MEDS: ATORVASTATIN 80 MG TABLET PO SCH (21:25)
[2017-06-20 05:54] LABS: Basophils % 0.2 % (0.0-0.8); Eosinophils # 0.3 10*3/uL (0.0-0.87); Eosinophils % 1.8 % (0.00-10.9); Hematocrit 37.4 VOL% (42.0-52.0); Hemoglobin 12.8 GM/DL (14.0-18.0); Immature Granulocytes % 0.8 %; Immature Granulocytes Absolute 0.14 #; Lymphocytes # 1.3 10*3/uL (1.4-4.0); Lymphocytes % 7.1 % (21.2-54.2); Mean Corpuscular HGB Conc 34.2 GM/DL (32-36); Mean Corpuscular Hemoglobin 31 PG (27-34); Mean Corpuscular Volume 89.3 FL (87-102); Mean Platelet Volume 9.1 FL (9.6-12.0); Monocytes # 1.6 10*3/uL (0.11-0.8); Monocytes % 8.8 % (1.7-12.7); Neutrophils # 14.6 10*3/uL (1.4-7.4); Neutrophils % 81.3 % (38.7-73.9); Platelet Count 266 T/CUMM (130-400); Red Blood Count 4.19 MC/CUMM (3.8-5.5); Red Cell Distribution Width 13.3 % (9.3-17.3); White Blood Count 17.9 T/CUMM (4-12)
[2017-06-20 08:25] LABS: Calcium 8.9 MG/DL (8.5-10.1); Magnesium 1.8 MG/DL (1.8-2.4); Potassium 5.3 MMOL/L (3.5-5.1)
[2017-06-20] MEDS: INSULIN LISPRO 100 UNIT/ML SUBCUT SCH ×4 (08:50→21:31)
[2017-06-20] MEDS: CARVEDILOL 6.25 MG TABLET PO SCH (08:56)
[2017-06-20] MEDS: FUROSEMIDE 40 MG TABLET PO SCH ×2 (08:56→16:32)
[2017-06-20] MEDS: ASPIRIN EC 81 MG TABLET PO SCH (08:57)
[2017-06-20] MEDS: SPIRONOLACTONE 25 MG TABLET PO SCH (08:57)
[2017-06-20] MEDS: APIXABAN 5 MG TABLET PO SCH ×2 (08:57→21:25)
[2017-06-20] MEDS: metFORMIN 500 MG TABLET PO SCH ×2 (08:57→16:47)
[2017-06-20] MEDS: PANTOPRAZOLE 40 MG TABLET PO SCH (08:57)
--- NOTE | 2017-06-20 09:15 | Hospitalist Progress Note ---
Assessment and Plan (1) Cardiomyopathy Status: Chronic Assessment and plan: History of aortocoronary bypass grafting. Cardiac catheterization showing graft patency but with severely depressed left ventricular systolic performance and significant mitral regurgitation and presumed secondary pulmonary hypertension April 2017. Recent placement of AICD. Atrial flutter with variable block Current Visit: Yes Qualifiers: Cardiomyopathy type: ischemic Qualified Code(s): I25.5 - Ischemic cardiomyopathy (2) Altered mental status Status: Acute Assessment and plan: History of chronic pain disorder and cannabinoid use neurologic pattern is unclear possible conversion reaction Current Visit: Yes Hospitalist: Subjective Interval history: 66-year-old male with remote aortocoronary bypass grafting who presented with shortness of breath with repeat cardiac catheterization performed in April. Grafts were patent with adequate distal runoff, ejection fraction was severely diminished at 10-15% with severe mitral regurgitation, augmented V wave amplitudes, and significant pulmonary hypertension. He presented with altered mental status consisting predominantly of initially confusion then some subsequent lethargy. Neuroimaging has been unrevealing with MRI contraindicated due to implantation of ICD. His vital signs are stable overnight. He continues in atrial flutter with ventricular premature depolarizations. Exam - Constitutional Vitals: Period Temp Pulse Resp BP Sys/Valladares Pulse Ox Last 24 Hr 97.7 F-98.5 F 76-112 12-23 96-146/61-93 97-99 General appearance: normal weight - Respiratory Respiratory exam: Present: clear to auscultation bilaterally (Limited exam) - Cardiovascular Cardiovascular exam: Present: irregular rhythm (Atrial flutter with ventricular premature depolarizations.), systolic murmur (1/6 apical systolic) - GI/Abdominal GI/Abdominal exam: Present: normal bowel sounds. Absent: tenderness - Extremities Exam Extremities exam: Absent: edema - Neurological Exam Neurological exam: Absent: alert Results - Labs CBC & BMP: 06/20/17 05:19 06/20/17 05:19 Labs: Magnesium 1.8 Quality Measures - VTE Contraindication to Pharmacological VTE Prophylaxis: Already on Theraputic Agent , No Prophylaxis Needed Specialty Discharge - Follow Up or Referrals
--- NOTE | 2017-06-20 09:24 | Neurology Consult Note ---
History of Present Illness History of present illness: Patient at the present time unable to provide me any history. History basically obtained from the chart. Mr. Mcneil is a 66 year old white male with a history of ischemic cardiomyopathy with poor ejection fraction, status post AICD placement who was noted to have some intermittent confusion the day of admission as well as a low blood pressure. He denies any chest pain, shortness of breath, abdominal pain, nausea , vomiting, diarrhea, constipation, melena, hematochezia, hematemesis, dysuria, hematuria, urinary frequency urgency or incontinence. He was seen by social problems specialist last week and had some of his medications altered. Patient did get a [place] general the day of admission and was evaluated and discharged there however he remains confused with some conversation and was evaluated at [place] emergency department. He has noted to be relatively hypotensive with systolic blood pressures in the 70-80 range. He was admitted for further evaluation. Yesterday he was transferred to ICU with possible seizure-like activity. I do not have a detailed explanation of the spell. At the present moment he can follow simple commands but she is trying not to. Drug screen is positive for cannabinoids and opiates. CT of the head is unremarkable for any acute pathology. EEG is within normal limits. Home Medications Medication Instructions Recorded Confirmed Type Nitroglycerin 0.4 mg SL DIRECTED PRN 05/24/17 06/17/17 History metFORMIN [Glucophage] 500 mg PO BID W/MEALS 05/24/17 06/17/17 History Aspirin EC Tab 81 mg PO QAM 05/25/17 06/17/17 History Spironolactone [Aldactone] 25 mg PO QAM 05/25/17 06/17/17 History Amiodarone Tab [Cordarone Tab] 200 mg PO DAILY 06/17/17 06/18/17 History Apixaban [Eliquis] 5 mg PO BID 06/17/17 06/17/17 History Atorvastatin [Lipitor] 80 mg PO BEDTIME 06/17/17 06/17/17 History Carvedilol [Coreg] 6.25 mg PO BID 06/17/17 06/18/17 History Furosemide Tab [Lasix Tab] 40 mg PO DAILY 06/17/17 06/18/17 History Lisinopril 10 mg PO DAILY 06/18/17 06/18/17 History Allergies Allergy/AdvReac Type Severity Reaction Status Date / Time No Known Allergies Allergy Verified 05/25/17 19:11 ROS unobtainable: due to mental status Medical,Surgical,& Family Hx - Medical History Cardio: History of: CHF (Ischemic cardiomyopathy with ejection fraction of 15%) , CAD, Hypertension, Pacemaker, Cardiovascular Problems Psychological: No history of: Psychiatric Problems Neurology: No history of: Cerebrovascular Accident, Seizures, TIA HEENT: No history of: Ear Problem, Eye Problem Endocrine: History of: Diabetes Mellitus (NIDDM) Respiratory: No history of: Asthma, COPD Renal: No history of: Renal Problems Genitourinary: No history of: Problems Gastrointestinal: No history of: GI Problems Musculoskeletal: No history of: Back/Neck Problems, Musculoskeletal Problems Hematology: No history of: Anemia, Bleeding Problems, Clotting Problems Other: No history of: Cancer - Surgical History Cardiac Surgeries: Sugical HX of: Cardiac Catheterization ([facility] PM Defib implant 05/2017), Cardiac Surgery (bypass 19 years ago) Thoracic Surgeries: Patient denies;: Organ Transplant - Family History Family History: Reports;: Family Cancer, Family Diabetes (mother), Family Heart Disease (father), Family Hypertension (father) - Social History Smoking Status: Current every day smoker Frequency of Alcohol Use: None Type of Drug Use: Marijuana Exam - Constitutional Vitals: Period Temp Pulse Resp BP Sys/Valladares Pulse Ox Last 24 Hr 97.7 F-98.7 F 76-125 12-23 96-146/61-93 97-99 Exam: GENERAL: Patient is in no acute distress. NECK: Neck is supple. There is no JVD. No carotid bruits present. No thyroid masses. CVS: First and second heart sounds are normal. There is no S3 present. Regular rate and rhythm. RESPIRATORY: Lungs are clear to auscultation without any rales or rhonchi. ABDOMEN: Soft and non-tender. Bowel sounds are present. There is no hepatosplenomegaly. EXT: There is no palpable edema. Peripheral pulses are present. Skin: No rashes Central Nervous system: General: Keeping eyes closed tightly Speech: None Comprehension: Fair to none Facial expressions: Normal Cranial Nerves: Patient is not cooperative for the cranial nerves exam Motor: Bulk and Tone is normal. Strength cannot be assessed with moving all 4 extremities spontaneously Sensory: Cannot be assessed Reflexes: 1+ and symmetrical Cerebellar function: Cannot be assessed Toes: Equivocal Gait: Cannot be assessed Results - Labs CBC & BMP: 06/20/17 05:19 06/20/17 05:19 Assessment and Plan (1) Altered mental status Status: Acute Assessment and plan: I do not see any clear evidence of a stroke, TIAs, epilepsy or seizures. Functional element cannot be excluded entirely. EEG is within normal limits. No indication for AEDs We will stop Keppra and watch him. Thank you for the consult Current Visit: Yes Specialty Discharge - Follow Up or Referrals
--- NOTE | 2017-06-20 10:34 | Cardiology Progress Note ---
Assessment and Plan - Time spent with patient Time spent with patient: Less than 30 minutes (1) Atrial flutter Status: Acute Assessment and plan: See plan of care listed below. Current Visit: Yes (2) Altered mental status Status: Acute Assessment and plan: See plan of care listed below. Current Visit: Yes (3) Hyponatremia Status: Acute Assessment and plan: See plan of care listed below. Current Visit: Yes (4) CAD (coronary artery disease) Status: Chronic Assessment and plan: See plan of care listed below. Current Visit: Yes Qualifiers: Coronary Disease-Associated Artery/Lesion type: [place] artery [place] vs. transplanted heart: [place] heart Associated angina: without angina Qualified Code(s): I25.10 - Atherosclerotic heart disease of [place] coronary artery without angina pectoris (5) Cardiomyopathy Status: Chronic Assessment and plan: See plan of care listed below. Current Visit: Yes Qualifiers: Cardiomyopathy type: ischemic Qualified Code(s): I25.5 - Ischemic cardiomyopathy (6) Mitral regurgitation Status: Chronic Assessment and plan: See plan of care listed below. Current Visit: No Qualifiers: Cardiac valve disease etiology: nonrheumatic Qualified Code(s): I34.0 - Nonrheumatic mitral (valve) insufficiency (7) Cannabis abuse Status: Chronic Assessment and plan: See plan of care listed below. Current Visit: Yes (8) Diabetes mellitus Status: Chronic Assessment and plan: See plan of care listed below. Current Visit: No Qualifiers: Diabetes mellitus type: type 2 (9) Hypertension Status: Chronic Assessment and plan: See plan of care listed below. Current Visit: No Qualifiers: Hypertension type: essential hypertension Qualified Code(s): I10 - Essential (primary) hypertension Cardiology - PN: Subj Interval history: Director Of Events: Dr. Singh SUMMARY: Mr. Mcneil is a 66 y/o WM who presented with altered mental status and hyponatremia. He reports he was told to increase his Lasix recently. He has a history of hypertension, DM, status post CABG approximately 1997 (DOWELL and vein grafts patent 02 May 2017) followed by Dr. Singh with severe ischemic cardiomyopathy (EF 20-25%) and severe mitral regurgitation with patent grafts ( diffuse distal/small vessel disease not amenable to percutaneous or surgical intervention) April 2017, when he had severe pulmonary hypertension and was referred to [place] for mitral valve clip, was not placed due to instability. He had an ICD placed 2 weeks ago. He has continued to have an altered mental status throughout hospitalization without clear etiology. After speaking with both of his sons, I have gathered that Mr. Mcneil has smoked marijuana since high school with the same friend. His son Eduar reports he usually smokes medical grade marijuana and cannot imagine that he would have done any differently this weekend; however, the patient's grand that he normally smokes with reports that he believes Mr. Mcneil found some old marijuana of his brothers and smoked that Saturday evening. Mr. Mcneil' brother has been for over a year. Repeat head CT on 06/20/17 showed no acute abnormality. 2016: Mr. Mcneil is obtunded at the time of my exam. It's possible he might require a bryan-psych consult as his neuro eval did not reveal any clear evidence of a stroke, TIA, epilepsy, or seizure. This morning, both of the patient's sons are at the bedside and report there has been little change. Patient continues to make purposeful movements but will not communicate. Persists opening his eyes and every time when of his sons mentions his grandchildren, he begins crying. His heart rates have been a little bit more elevated today than they have been in the past several days. I suspect this is possibly related to his altered mental status and emotional outbursts. We will adjust his medications to better control his heart rate. We will increase his Coreg to 12.5 mg p.o. twice daily at this time we will give him a one-time dose of Lopressor 5 mg IV. His heart rate remains elevated, will start him on some digoxin. At the conclusion of my exam, the patient's room was empty and from the nurses station he could hear him first out into laughter and then begin showering, "no, no, no, no," repeatedly. Lower packages room along with his nurse, he appeared upset and was slightly diaphoretic with an elevated heart rate but again, he would not respond to any questions or open his eyes for rest. He was eventually able to be calmed down. IMPRESSION/PLAN: 1. ATRIAL FLUTTER: He remains in atrial flutter. Cardioversion could be considered at some point if he is on anticoagulation for 3 weeks. At this time , this is not urgent as he seems to be hemodynamically stable and has been asymptomatic. Continue Eliquis 5 mg p.o. twice daily. 2. ALTERED MENTAL STATUS: Possible etiology would include hyponatremia, illicit drug use, or prescription or [id number] drugs. He has continued to have an altered mental status throughout hospitalization without clear etiology. 3. HYPONATREMIA: Slowly improving. His IVF were discontinued as he is prone to volume overload. 4. CORONARY ARTERY DISEASE: Patent grafts per 05/27/17 [facility] with diffuse distal/ small vessel disease not amenable to percutaneous or surgical intervention. Continue aspirin, beta shayna, statin. 5. ISCHEMIC CARDIOMYOPATHY: Reportedly, he is to have a pacemaker/ICD placed but has not scheduled this appointment yet. His Coreg 3.125 mg p.o. twice daily was resumed, now increased to 12.5mg po BID. His blood pressure remains borderline hypotensive at times. We will continue to monitor and adjust accordingly. 6. MITRAL REGURGITATION: Mitral valve clip was not placed due to instability and he underwent placement of ICD approximately 2 weeks ago. 7. CANNABIS ABUSE: Urine drug screen this admission positive for cannabis. Patient reports using cannabis one day prior to admission. 8. DIABETES MELLITUS: He is on accuchecks and sliding scale insulin. 9. HYPERTENSION: Currently well controlled, borderline hypotensive at times. Will continue to monitor and adjust accordingly. Exam (Progress Note) - Constitutional Vitals: Period Temp Pulse Resp BP Sys/Valladares Pulse Ox Last 24 Hr 97.7 F-98.7 F 76-125 12-23 96-146/61-93 97-99 Exam: General appearance: Appears well. Pleasant and cooperative. Overweight, no acute distress. Head exam: Present: normal inspection, normocephalic, atraumatic. Absent: hematoma, laceration Eye exam: Absent: conjunctival injection, periorbital swelling, scleral icterus , laceration to eyelids, jaundice Pupils: Present: Unable to adequately assess. Patient resists opening his eyes. ENT exam: Present: normal exam, normal external ear exam, mucous membranes moist. Neck exam: Present: normal inspection, midline trachea. Absent: masses, lymphadenopathy, tenderness, thyromegaly Respiratory exam: Present: clear to auscultation bilaterally. Absent: accessory muscle use, chest wall tenderness, rales, rhonchi, wheezing. Cardiovascular exam: Present: Irregular rate and rhythm, Tachycardia. Systolic murmur. Absent: gallop, JVD, rubs GI/Abdominal exam: Present: normal bowel sounds, soft. Absent: distended, firm , hernia, mass, tenderness. Extremities exam: Present: Normal Gait, No Clubbing, No Cyanosis, Upper Extr. Pulses 2+, Lower Extr. Pulses 2+, No edema. Capillary refill less than 3 seconds. Musculoskeletal: Present: No Fluid Collection, No Pain, Normal Range of Motion Back exam: Present: normal inspection. Absent: muscle spasm, vertebral tenderness Neurological exam: Present: obtunded, will not speak or follow commands, opens eyes slightly spontaneously, Moves all extremities well without hemiparesis or paralysis. No resting or essential tremor Psychiatric exam: Present: Unable to adequately assess at this time. Skin exam: Present: normal color, warm, dry, intact. Left chest wall pacemaker incision well approximated, s redness, edema, or drainage. Mild ecchymosis at site. Absent: cyanosis, diaphoretic, rash, urticaria Result/EKG - Labs CBC & BMP: 06/20/17 05:19 06/20/17 05:19 Lab Results: I have reviewed the past 24 hour labs Labs: Laboratory Results - last 24 hr 06/19/17 06/19/17 06/19/17 12:49 15:25 15:39 WBC 12.1 H RBC 4.44 Hgb 13.3 L Hct 38.6 L MCV 86.9 L MCH 30 MCHC 34.5 RDW 13.3 Plt Count 262 D MPV 8.9 L Neut % (Auto) 73.1 Lymph % (Auto) 15.0 L [place] % (Auto) 9.2 Eos % (Auto) 2.0 Baso % (Auto) 0.2 Neut # (Auto) 8.9 H Lymph # (Auto) 1.8 [place] # (Auto) 1.1 H Eos # (Auto) 0.2 Baso # (Auto) 0.0 Immature Gran % 0.5 Nucleated RBC % 0.0 Immature Gran # 0.06 Nucleated RBCs # 0.00 Immature Plt Fraction 0.0 Sodium Potassium Chloride Carbon Dioxide Anion Gap BUN Creatinine GFR Calculation BUN/Creatinine Ratio Glucose POC Glucose 134 H Calculated Osmolality Calcium Magnesium Total Bilirubin AST ALT Alkaline Phosphatase Ammonia 24 Troponin I Total Protein Albumin Globulin Albumin/Globulin Ratio 06/19/17 06/19/17 06/19/17 15:39 16:09 20:21 WBC RBC Hgb Hct MCV MCH MCHC RDW Plt Count MPV Neut % (Auto) Lymph % (Auto) [place] % (Auto) Eos % (Auto) Baso % (Auto) Neut # (Auto) Lymph # (Auto) [place] # (Auto) Eos # (Auto) Baso # (Auto) Immature Gran % Nucleated RBC % Immature Gran # Nucleated RBCs # Immature Plt Fraction Sodium 133 L Potassium 4.7 Chloride 98 Carbon Dioxide 24 Anion Gap 15.7 H BUN 17 Creatinine 1.20 GFR Calculation 67 BUN/Creatinine Ratio 14.00 Glucose 123 H POC Glucose 118 H 94 Calculated Osmolality 268.4 L Calcium 9.0 Magnesium 2.1 Total Bilirubin 1.00 AST 36 ALT 41 Alkaline Phosphatase 107 Ammonia Troponin I 0.020 Total Protein 6.1 L Albumin 3.4 Globulin 2.7 Albumin/Globulin Ratio 1.2 06/20/17 06/20/17 06/20/17 05:19 05:19 08:14 WBC 17.9 H D RBC 4.19 Hgb 12.8 L Hct 37.4 L MCV 89.3 MCH 31 MCHC 34.2 RDW 13.3 Plt Count 266 MPV 9.1 L Neut % (Auto) 81.3 H Lymph % (Auto) 7.1 L [place] % (Auto) 8.8 Eos % (Auto) 1.8 Baso % (Auto) 0.2 Neut # (Auto) 14.6 H Lymph # (Auto) 1.3 L [place] # (Auto) 1.6 H Eos # (Auto) 0.3 Baso # (Auto) 0.0 Immature Gran % 0.8 Nucleated RBC % 0.0 Immature Gran # 0.14 Nucleated RBCs # 0.00 Immature Plt Fraction 0.0 Sodium 136 Potassium 5.3 H Chloride 102 Carbon Dioxide 23 Anion Gap 16.3 H BUN 18 Creatinine 1.10 GFR Calculation 75 BUN/Creatinine Ratio 16.00 Glucose 71 L POC Glucose 74 Calculated Osmolality 271.0 L Calcium 8.9 Magnesium 1.8 Total Bilirubin AST ALT Alkaline Phosphatase Ammonia Troponin I Total Protein Albumin Globulin Albumin/Globulin Ratio - EKG EKG results: interpreted by me (atrial flutter, tachycardia) EKG shows: tachycardia Quality Measures - VTE Contraindication to Pharmacological VTE Prophylaxis: Already on Theraputic Agent , No Prophylaxis Needed Specialty Discharge - Follow Up or Referrals
[2017-06-20] MEDS ORDERED: METOPROLOL TARTRATE 5 MG/5 ML VIAL IV ONE (10:59)
--- NOTE | 2017-06-20 11:07 | EKG Report ---
Stationary ECG Study [facility] Test Date: 06/20/2017 11:08:44 AM Pat Name: KARO JONES Department: Room: 116 Gender: M Tray Checker: GHADA : 1950 Requested by: Cain Roper Order Number: [id number] Reading MD: STEPHANIE HUTTON Intervals [place] Rate: 109 P: 999 HI: 0 QRS: 89 QRSD: 109 T: 59 QT: 344 QTc: 408 Interpretive Statements ATRIAL FLUTTER/TACHYCARDIA WITH RAPID VENTRICULAR RESPONSE SEPTAL MYOCARDIAL INFARCTION, OLD PROBABLE LATERAL MYOCARDIAL INFARCTION Electronically Signed On 06-22-17 17:52:23 CDT by STEPHANIE HUTTON [email or web address]
[2017-06-20] MEDS ORDERED: DIGOXIN 0.5 MG/2 ML AMP IV ONE (14:16)
[2017-06-20] MEDS ORDERED: DILTIAZEM 50 MG/10 ML VIAL IV ONE (20:07)
[2017-06-20] MEDS: DILTIAZEM INJ 100 MG in SODIUM CHLORIDE 0.9% 100 ML IV SCH (20:24)
[2017-06-20] MEDS: CARVEDILOL 12.5 MG TABLET PO SCH (21:25)
[2017-06-20] MEDS: ATORVASTATIN 80 MG TABLET PO SCH (21:25)
[2017-06-21] MEDS ORDERED: HYDROmorphone 2 MG/1 ML VIAL ONE (00:17)
[2017-06-21] MEDS ORDERED: HYDROmorphone 2 MG/1 ML VIAL IV ONE (00:18)
[2017-06-21] MEDS ORDERED: KETOROLAC 30 MG/1 ML VIAL IV ONE (00:23)
[2017-06-21 03:16] LABS: Basophils % 0.2 % (0.0-0.8); Eosinophils # 0.1 10*3/uL (0.0-0.87); Eosinophils % 0.3 % (0.00-10.9); Hematocrit 37.4 VOL% (42.0-52.0); Hemoglobin 12.7 GM/DL (14.0-18.0); Immature Granulocytes % 0.6 %; Immature Granulocytes Absolute 0.11 #; Lymphocytes # 1.1 10*3/uL (1.4-4.0); Lymphocytes % 6.1 % (21.2-54.2); Mean Corpuscular Hemoglobin 30 PG (27-34); Mean Corpuscular Volume 87.8 FL (87-102); Mean Platelet Volume 8.9 FL (9.6-12.0); Monocytes # 1.7 10*3/uL (0.11-0.8); Monocytes % 9.9 % (1.7-12.7); Neutrophils # 14.6 10*3/uL (1.4-7.4); Neutrophils % 82.9 % (38.7-73.9); Platelet Count 271 T/CUMM (130-400); Red Blood Count 4.26 MC/CUMM (3.8-5.5); Red Cell Distribution Width 13.5 % (9.3-17.3); White Blood Count 17.6 T/CUMM (4-12)
[2017-06-21] MEDS: HYDROmorphone 2 MG/1 ML VIAL IV PRN ×6 (03:36→22:46)
[2017-06-21 04:13] LABS: Calcium 9.3 MG/DL (8.5-10.1); Osmolality,Calculated 286.7 MOS/KG (273-304); Potassium 4.9 MMOL/L (3.5-5.1)
[2017-06-21] MEDS ORDERED: IBUPROFEN 800 MG TABLET PER TUBE SCH (08:00)
[2017-06-21] MEDS: INSULIN LISPRO 100 UNIT/ML SUBCUT SCH ×4 (08:05→21:26)
--- NOTE | 2017-06-21 08:09 | Ultrasound Report ---
Exam: US Scrotum w Duplex Date: 06/21/2017 6:52 AM Indication: Testicular pain and swelling Findings: Right Testicle: Length: 6.1 cm Height:2 cm Width:2.1 cm Right Epididymis not visualized Length: Height: Width: Normal color blood flow right testicle with a moderate right hydrocele Left Testicle: Length:4.3 cm Height:2.3 cm Width:2.4 cm Left Epididymis Length:0.8 cm Height:1 cm Width:1.3 cm No obvious hydrocele with normal color flow left testicle Impression: 1. Nonvisualization of the right epididymis 2. Moderate large right hydrocele 3. No obvious testicular torsion normal color flow and spectral wave analysis noted bilaterally Ultrasound Images are Captured and Stored PROCEDURE INTERPRETED AT [facility] DEPARTMENT OF RADIOLOGY Final Report Signed by: Dr. Carroll Lima
--- NOTE | 2017-06-21 08:13 | Event Note ---
Patient is established with Dr. Simon. I have discussed this patient and reviewed the ultrasound with him this morning. He will see the patient and dictated a formal consult note.
[2017-06-21] MEDS: ASPIRIN EC 81 MG TABLET PO SCH (08:30)
[2017-06-21] MEDS: CARVEDILOL 12.5 MG TABLET PO SCH (08:30)
[2017-06-21] MEDS: SPIRONOLACTONE 25 MG TABLET PO SCH (08:30)
[2017-06-21] MEDS: FUROSEMIDE 40 MG TABLET PO SCH (08:30)
[2017-06-21] MEDS: APIXABAN 5 MG TABLET PO SCH ×2 (08:30→22:45)
[2017-06-21] MEDS: metFORMIN 500 MG TABLET PO SCH ×2 (09:00→17:00)
[2017-06-21] MEDS: PANTOPRAZOLE 40 MG TABLET PO SCH (09:00)
--- NOTE | 2017-06-21 09:52 | Hospitalist Progress Note ---
Assessment and Plan (1) Cardiomyopathy Status: Chronic Assessment and plan: History of aortocoronary bypass grafting. Cardiac catheterization showing graft patency but with severely depressed left ventricular systolic performance and significant mitral regurgitation and presumed secondary pulmonary hypertension April 2017. Recent placement of AICD. Atrial flutter with variable block Current Visit: Yes Qualifiers: Cardiomyopathy type: ischemic Qualified Code(s): I25.5 - Ischemic cardiomyopathy (2) Altered mental status Status: Acute Assessment and plan: History of chronic pain disorder and cannabinoid use neurologic pattern is unclear possible conversion reaction Current Visit: Yes (3) Dehydration Status: Acute Assessment and plan: This likely generated a mild prerenal azotemia. Poor intake coupled with use of Lasix for volume management appears to be the most likely mechanism however we will go ahead and hold his nonsteroidal anti-inflammatory drug to avoid further compromise in the setting of chronic jaqueline inhibitor use. We will provide cautious IV fluid support resuming Lasix as renal function recovers Current Visit: Yes Hospitalist: Subjective Interval history: 66-year-old male with remote aortocoronary bypass grafting who presented with shortness of breath and on repeat catheterization performed in April was found to have patent grafts with adequate distal runoff but a severely diminished left ventricular ejection fraction and severe mitral regurgitation. Right heart catheterization showed significant pulmonary hypertension with augmented V wave. The patient did receive an ICD. He has a history of chronic pain disorder with cannabinoid use and positive opiate drug screen. He is presented with very atypical neurologic syndrome. Imaging studies not including MRI have been unremarkable. After short course of Keppra this has been discontinued. Patient continues to demonstrate neologisms and calling out, with intermittent coherent vocalizations. He continues to have cranial and peripheral motor changes occurring in a random sequential fashion. Possibility of conversion reaction is strongly considered overnight the patient's maximum temperature was 100. Blood pressure was stable. He was noted to have testicular swelling ultrasound has been completed and urology consult is pending. He has not been receiving IV fluid support but has been receiving Lasix for his LV systolic dysfunction. His serum creatinine is risen this morning. Patient is being evaluated by psychiatry they cannot complete this evaluation until he has been 24 hours on the cassidy. Exam - Constitutional Vitals: Period Temp Pulse Resp BP Sys/Valladares Pulse Ox Last 24 Hr 97.5 F-100 F 74-152 10-25 93-163/49-93 96-99 General appearance: normal weight - Eye Eye exam: Present: other (Right upward gaze) - Respiratory Respiratory exam: Present: clear to auscultation bilaterally. Absent: rales, rhonchi, wheezes - Cardiovascular Cardiovascular exam: Present: regular rate and rhythm (Rhythm strips indicate persistent atrial flutter), systolic murmur (Basilar flow murmur) - GI/Abdominal GI/Abdominal exam: Present: normal bowel sounds. Absent: distended, tenderness - Extremities Exam Extremities exam: Absent: edema - Neurological Exam Neurological exam: Absent: alert, oriented X3 Results - Labs CBC & BMP: 06/21/17 02:56 06/21/17 02:56 Quality Measures - VTE Contraindication to Pharmacological VTE Prophylaxis: Already on Theraputic Agent , No Prophylaxis Needed Specialty Discharge - Follow Up or Referrals
[2017-06-21] MEDS: LACTATED RINGERS 1,000 ML IV SCH (10:30)
--- NOTE | 2017-06-21 10:44 | Cardiology Progress Note ---
Assessment and Plan - Time spent with patient Time spent with patient: Less than 30 minutes (1) Atrial flutter Status: Acute Assessment and plan: See plan of care listed below. Current Visit: Yes (2) Altered mental status Status: Acute Assessment and plan: See plan of care listed below. Current Visit: Yes (3) Hyponatremia Status: Acute Assessment and plan: See plan of care listed below. Current Visit: Yes (4) CAD (coronary artery disease) Status: Chronic Assessment and plan: See plan of care listed below. Current Visit: Yes Qualifiers: Coronary Disease-Associated Artery/Lesion type: [place] artery [place] vs. transplanted heart: [place] heart Associated angina: without angina Qualified Code(s): I25.10 - Atherosclerotic heart disease of [place] coronary artery without angina pectoris (5) Cardiomyopathy Status: Chronic Assessment and plan: See plan of care listed below. Current Visit: Yes Qualifiers: Cardiomyopathy type: ischemic Qualified Code(s): I25.5 - Ischemic cardiomyopathy (6) Mitral regurgitation Status: Chronic Assessment and plan: See plan of care listed below. Current Visit: No Qualifiers: Cardiac valve disease etiology: nonrheumatic Qualified Code(s): I34.0 - Nonrheumatic mitral (valve) insufficiency (7) Cannabis abuse Status: Chronic Assessment and plan: See plan of care listed below. Current Visit: Yes (8) Diabetes mellitus Status: Chronic Assessment and plan: See plan of care listed below. Current Visit: No Qualifiers: Diabetes mellitus type: type 2 (9) Hypertension Status: Chronic Assessment and plan: See plan of care listed below. Current Visit: No Qualifiers: Hypertension type: essential hypertension Qualified Code(s): I10 - Essential (primary) hypertension Cardiology - PN: Subj Interval history: Muffler Hand: Dr. Singh SUMMARY: Mr. Mcneil is a 66 y/o WM who presented with altered mental status and hyponatremia. He reports he was told to increase his Lasix recently. He has a history of hypertension, DM, status post CABG approximately 1997 (DOWELL and vein grafts patent 02 May 2017) followed by Dr. Singh with severe ischemic cardiomyopathy (EF 20-25%) and severe mitral regurgitation with patent grafts ( diffuse distal/small vessel disease not amenable to percutaneous or surgical intervention) April 2017, when he had severe pulmonary hypertension and was referred to [facility] for mitral valve clip, was not placed due to instability. He had an ICD placed 2 weeks ago. He has continued to have an altered mental status throughout hospitalization without clear etiology. After speaking with both of his sons, I have gathered that Mr. Mcneil has smoked marijuana since high school with the same friend. His son Eduar reports he usually smokes medical grade marijuana and cannot imagine that he would have done any differently this weekend; however, the patient's grand that he normally smokes with reports that he believes Mr. Mcneil found some old marijuana of his brothers and smoked that Saturday evening. Mr. Mcneil' brother has been for over a year. Repeat head CT on 06/20/17 showed no acute abnormality. 2016: Mr. Mcneil continues to have significant confusion and inappropriate behaviors. He is more responsive today and will occasionally speak , but still does not make sense much of the time. Over the past couple of days, Mr. Freitas WBC has continued to rise and is 17.6 today. Yesterday afternoon he began running a low grade temperature. Blood cultures were obtained on admission and showed no growth. We will repeat these and obtain a repeat urinalysis to evaluate the etiology of his elevated WBC. Last night, he was in atrial flutter with RVR and was placed on a Cardizem infusion. He remains in atrial flutter, now with controlled rates. We will transition him to Cardizem 30mg PO TID. His creatinine has risen today to 1.8. IMPRESSION/PLAN: 1. ATRIAL FLUTTER: He remains in atrial flutter. Cardioversion could be considered as he has been on anticoagulation for approximately 3 weeks. Continue Eliquis 5 mg p.o. twice daily. 2. ALTERED MENTAL STATUS: Possible etiology would include hyponatremia, illicit drug use, or prescription or [id number] drugs. He has continued to have an altered mental status throughout hospitalization without clear etiology. Renee-psych will evaluate when he has been on a regular medical floor for 24 hours. WBC has risen since admission. Additional differential diagnosis could include infectious process. Will repeat blood cultures, urine culture. 3. HYPONATREMIA: Slowly improving. His IVF were discontinued as he is prone to volume overload. 4. CORONARY ARTERY DISEASE: Patent grafts per 05/27/17 [facility] with diffuse distal/ small vessel disease not amenable to percutaneous or surgical intervention. Continue aspirin, beta shayna, statin. 5. ISCHEMIC CARDIOMYOPATHY: Reportedly, he is to have a pacemaker/ICD placed but has not scheduled this appointment yet. His Coreg 3.125 mg p.o. twice daily was resumed, now increased to 12.5mg po BID. His blood pressure remains borderline hypotensive at times. We will continue to monitor and adjust accordingly. 6. MITRAL REGURGITATION: Mitral valve clip was not placed due to instability and he underwent placement of ICD approximately 2 weeks ago. 7. CANNABIS ABUSE: Urine drug screen this admission positive for cannabis. Patient reports using cannabis one day prior to admission. 8. DIABETES MELLITUS: He is on accuchecks and sliding scale insulin. 9. HYPERTENSION: Currently well controlled, borderline hypotensive at times. Will continue to monitor and adjust accordingly. Exam (Progress Note) - Constitutional Vitals: Period Temp Pulse Resp BP Sys/Valladares Pulse Ox Last 24 Hr 97.5 F-100 F 74-152 10-25 93-163/49-93 96-99 Exam: General appearance: Appears well. Pleasant and cooperative. Overweight, no acute distress. Head exam: Present: normal inspection, normocephalic, atraumatic. Absent: hematoma, laceration Eye exam: Absent: conjunctival injection, periorbital swelling, scleral icterus , laceration to eyelids, jaundice Pupils: Present: Unable to adequately assess. Patient resists opening his eyes. ENT exam: Present: normal exam, normal external ear exam, mucous membranes moist. Neck exam: Present: normal inspection, midline trachea. Absent: masses, lymphadenopathy, tenderness, thyromegaly Respiratory exam: Present: clear to auscultation bilaterally. Absent: accessory muscle use, chest wall tenderness, rales, rhonchi, wheezing. Cardiovascular exam: Present: Irregular rate and rhythm. Systolic murmur. Absent : gallop, JVD, rubs GI/Abdominal exam: Present: normal bowel sounds, soft. Absent: distended, firm , hernia, mass, tenderness. Extremities exam: Present: Normal Gait, No Clubbing, No Cyanosis, Upper Extr. Pulses 2+, Lower Extr. Pulses 2+, No edema. Capillary refill less than 3 seconds. Musculoskeletal: Present: No Fluid Collection, No Pain, Normal Range of Motion Back exam: Present: normal inspection. Absent: muscle spasm, vertebral tenderness Neurological exam: Present: obtunded, will not speak or follow commands, opens eyes slightly spontaneously, Moves all extremities well without hemiparesis or paralysis. No resting or essential tremor Psychiatric exam: Present: Unable to adequately assess at this time. Skin exam: Present: normal color, warm, dry, intact. Left chest wall pacemaker incision well approximated, s redness, edema, or drainage. Mild ecchymosis at site. Absent: cyanosis, diaphoretic, rash, urticaria Result/EKG - Labs CBC & BMP: 06/21/17 02:56 06/21/17 02:56 Lab Results: I have reviewed the past 24 hour labs Labs: Laboratory Results - last 24 hr 06/20/17 06/20/17 06/20/17 11:43 16:27 21:31 WBC RBC Hgb Hct MCV MCH MCHC RDW Plt Count MPV Neut % (Auto) Lymph % (Auto) [place] % (Auto) Eos % (Auto) Baso % (Auto) Neut # (Auto) Lymph # (Auto) [place] # (Auto) Eos # (Auto) Baso # (Auto) Immature Gran % Nucleated RBC % Immature Gran # Nucleated RBCs # Immature Plt Fraction Sodium Potassium Chloride Carbon Dioxide Anion Gap BUN Creatinine GFR Calculation BUN/Creatinine Ratio Glucose POC Glucose 73 L 126 H 141 H Calculated Osmolality Calcium Magnesium 06/21/17 06/21/17 06/21/17 02:56 02:56 07:49 WBC 17.6 H RBC 4.26 Hgb 12.7 L Hct 37.4 L MCV 87.8 MCH 30 MCHC 34.0 RDW 13.5 Plt Count 271 MPV 8.9 L Neut % (Auto) 82.9 H Lymph % (Auto) 6.1 L [place] % (Auto) 9.9 Eos % (Auto) 0.3 Baso % (Auto) 0.2 Neut # (Auto) 14.6 H Lymph # (Auto) 1.1 L [place] # (Auto) 1.7 H Eos # (Auto) 0.1 Baso # (Auto) 0.0 Immature Gran % 0.6 Nucleated RBC % 0.0 Immature Gran # 0.11 Nucleated RBCs # 0.00 Immature Plt Fraction 0.0 Sodium 138 Potassium 4.9 Chloride 101 Carbon Dioxide 28 Anion Gap 13.9 BUN 36 H D Creatinine 1.80 H GFR Calculation 41 BUN/Creatinine Ratio 20.00 Glucose 174 H POC Glucose 151 H Calculated Osmolality 286.7 Calcium 9.3 Magnesium 2.0 - EKG EKG results: interpreted by me (atrial flutter) Quality Measures - VTE Contraindication to Pharmacological VTE Prophylaxis: Already on Theraputic Agent , No Prophylaxis Needed Specialty Discharge - Follow Up or Referrals
[2017-06-21] MEDS: DILTIAZEM 30 MG TABLET PO SCH ×3 (10:50→22:10)
[2017-06-21 11:29] LABS: Apearance,Urine Slightly Hazy (Clear); Bacteria,Urine Occasional /HPF (Few); Bilirubin,Urine Negative (Negative); Blood, Urine Large mg/dL (Negative); Glucose,Urine (UA) Negative (Negative); Hyaline Casts,Urine 112 /LPF (0-3); Ketones,Urine Negative (Negative); Mucus,Urine Occasional /LPF (Occasional); Nitrite,Urine Negative (Negative); Protein,Urine Negative; RBC,Urine 181 /HPF (0-4); Squamous Epithelial Cell,Urine Occasional /HPF (0-10); Urine Color Yellow (Yellow); Urine Specific Gravity 1.013 (1.001-1.035); Urine Urobilinogen < 2.0 EU/DL (0.2-1.0); WBC,Urine 12 /HPF (0-6)
--- NOTE | 2017-06-21 12:20 | Neurology Progress Note ---
Neurology - PN : Subjective Interval history: Patient continued to remain very delirious and disoriented. This is little unusual. Has high WBC count the source is not known. Blood cultures are pending. We will check CPK aldolase WSR b1 and B6. Exam (Progress Note) - Constitutional Vitals: Period Temp Pulse Resp BP Sys/Valladares Pulse Ox Last 24 Hr 97.5 F-100 F 74-152 10-25 93-163/49-93 96-99 Exam: GENERAL: Patient is in no acute distress. NECK: Neck is supple. There is no JVD. No carotid bruits present. No thyroid masses. CVS: First and second heart sounds are normal. There is no S3 present. Regular rate and rhythm. RESPIRATORY: Lungs are clear to auscultation without any rales or rhonchi. ABDOMEN: Soft and non-tender. Bowel sounds are present. There is no hepatosplenomegaly. EXT: There is no palpable edema. Peripheral pulses are present. Skin: No rashes Central Nervous system: General: Eyes are open and staring at the ceiling Speech: None Comprehension: None Facial expressions: Normal Cranial Nerves: Patient is not cooperative for the cranial nerves exam Motor: Bulk and Tone is normal. Strength cannot be assessed with moving all 4 extremities spontaneously Sensory: Cannot be assessed Reflexes: 1+ and symmetrical Cerebellar function: Cannot be assessed Toes: Equivocal Gait: Cannot be assessed Results - Labs CBC & BMP: 06/21/17 02:56 06/21/17 02:56 Assessment and Plan (1) Altered mental status Status: Acute Assessment and plan: This is totally unusual. We will go ahead and do repeat CT head Stop Eliquis We will plan for a spinal tap Start empirically Rocephin ampicillin and acyclovir Check CPK aldolase vitamin B12 B6 and WESR Current Visit: Yes Quality Measures - VTE Contraindication to Pharmacological VTE Prophylaxis: Already on Theraputic Agent , No Prophylaxis Needed Specialty Discharge - Follow Up or Referrals
--- NOTE | 2017-06-21 12:30 | CT Report ---
CT brain Indication: Altered mental status Comparison: 19 June 2017 Technique: Axial CT imaging of the brain is performed without contrast with 3 mm increments. Findings: No evidence of hemorrhage, mass mass effect midline shift or acute infarct seen. There is moderate diffuse cerebral atrophy. There are areas of decreased density seen within the white matter. Otherwise the brain parenchyma attenuation and differentiation appears within normal limits. The ventricles and cisterns are normal in caliber. No cranial or skull base abnormality is identified. Impression: No evidence of acute process or interval change. This CT exam was performed using one or more the following dose reduction techniques: Automated exposure control, adjustment of the MA and/or KV according to patient size, or use of iterative reconstruction technique. PROCEDURE INTERPRETED AT [facility] DEPARTMENT OF RADIOLOGY Final Report Signed by: Dr. Yung Frank
[2017-06-21] MEDS: DIGOXIN 0.125 MG TABLET PO SCH (13:00)
[2017-06-21] MEDS: ACYCLOVIR INJ 750 MG in SODIUM CHLORIDE 0.9% 250 ML IV SCH ×2 (13:40→22:12)
[2017-06-21] MEDS: AMPICILLIN INJ 2,000 MG in SODIUM CHLORIDE 0.9% 50 ML IV SCH ×2 (15:10→21:45)
[2017-06-21] MEDS: METOPROLOL TARTRATE 50 MG TABLET PO SCH ×2 (15:10→23:41)
[2017-06-21] MEDS: HALOPERIDOL 5 MG/ML AMP IV PRN (16:57)
[2017-06-21] MEDS: DILTIAZEM INJ 100 MG in SODIUM CHLORIDE 0.9% 100 ML IV SCH (21:40)
[2017-06-21] MEDS: ATORVASTATIN 80 MG TABLET PO SCH (21:47)
[2017-06-22] MEDS: LACTATED RINGERS 1,000 ML IV SCH ×2 (00:32→18:30)
[2017-06-22] MEDS: AMPICILLIN INJ 2,000 MG in SODIUM CHLORIDE 0.9% 50 ML IV SCH ×4 (03:05→21:27)
[2017-06-22] MEDS: ACYCLOVIR INJ 750 MG in SODIUM CHLORIDE 0.9% 250 ML IV SCH ×3 (05:25→22:01)
[2017-06-22 05:56] LABS: Basophils % 0.2 % (0.0-0.8); Eosinophils # 0.1 10*3/uL (0.0-0.87); Eosinophils % 0.6 % (0.00-10.9); Hematocrit 36.5 VOL% (42.0-52.0); Immature Granulocytes % 0.5 %; Lymphocytes # 0.7 10*3/uL (1.4-4.0); Lymphocytes % 3.7 % (21.2-54.2); Mean Corpuscular HGB Conc 32.9 GM/DL (32-36); Mean Corpuscular Hemoglobin 30 PG (27-34); Mean Corpuscular Volume 90.8 FL (87-102); Mean Platelet Volume 9.6 FL (9.6-12.0); Monocytes # 1.4 10*3/uL (0.11-0.8); Monocytes % 7.7 % (1.7-12.7); Neutrophils % 87.3 % (38.7-73.9); Platelet Count 250 T/CUMM (130-400); Red Blood Count 4.02 MC/CUMM (3.8-5.5); Red Cell Distribution Width 13.5 % (9.3-17.3); White Blood Count 18.3 T/CUMM (4-12)
[2017-06-22 06:39] LABS: Giant Platelets Few; Hypochromasia Slight; Lymphocytes 5 % (20-55); Ovalocytes Slight; Platelet Estimate Adequate; Segmented Neutrophils 90 % (50-85); Total Cells Counted 100
[2017-06-22 07:12] LABS: Calcium 8.6 MG/DL (8.5-10.1); Magnesium 2.2 MG/DL (1.8-2.4); Osmolality,Calculated 293.3 MOS/KG (273-304); Potassium 5.1 MMOL/L (3.5-5.1)
[2017-06-22] MEDS: INSULIN LISPRO 100 UNIT/ML SUBCUT SCH ×4 (07:30→20:25)
--- NOTE | 2017-06-22 08:33 | Cardiology Progress Note ---
Assessment and Plan (1) Altered mental status Status: Acute Assessment and plan: 1. 66-year-old WM with previous hypertension, DM, status post CABG approximately 1997 (DOWELL and vein grafts patent 02 May 2017) followed by Dr. Singh with severe ischemic cardiomyopathy (EF 20-25%) and severe mitral regurgitation with patent grafts (diffuse distal/small vessel disease not amenable to percutaneous or surgical intervention) April 2017, when he had severe pulmonary hypertension and was referred to [facility] for mitral valve clip, was not placed due to instability and he is to get a pacemaker placed ( presumably ICD/biventricular pacemaker 2 weeks ago by his report), and reports he was told to increase his Lasix this last Saturday (probably had early volume overload indicator on his pacemaker), who is really here for having hallucinations, although today seems to be alert and oriented with no complaints. 2. Hyponatremia is certainly possible cause of his mental status changes, as is illicit drug use, or prescription or [id number] drugs? His mental status seems to be quite good today, will continue to monitor. 3. Given his sodium is doing well and he has prone to volume overload, will discontinue IV fluids at this time. 4. His blood pressure systolic is in the 90s, and his heart rate is in the 60s , but given his severe cardiomyopathy he would likely benefit from restarting his Coreg 3.125 mg twice daily; his target blood pressure is much lower given his severe cardiomyopathy and MR. 5. He will be transferred to telemetry from cardiac standpoint. 6. Cardioversion could be considered at some point if he is on anticoagulation for 3 weeks? This is not urgent now as he seems to be stable hemodynamically and is asymptomatic. June 22, 2017: 1. Amazingly Mr. Meneses is alert and oriented this morning is very conversive without complaints 2. Discontinue diltiazem to avoid hypotension, and change short acting metoprolol to Toprol 50 mg twice daily to control rate and promote normal sinus rhythm as well as treat his cardiomyopathy 3. Change captopril to lisinopril twice daily for more convenient dosing 4. Continue Eliquis and baby aspirin; cardioversion could be considered after 3 weeks of anticoagulation if he does not convert to normal sinus rhythm. I am uncertain of the type of device that was implanted at [facility] as to whether has antitachycardia pacing capabilities that could be turned on at a later time. Current Visit: Yes (2) Atrial flutter Status: Acute Current Visit: Yes (3) Cannabis abuse Status: Chronic Current Visit: Yes (4) Hyponatremia Status: Acute Current Visit: Yes (5) CAD (coronary artery disease) Status: Chronic Current Visit: Yes Qualifiers: Coronary Disease-Associated Artery/Lesion type: [place] artery [place] vs. transplanted heart: [place] heart Associated angina: without angina Qualified Code(s): I25.10 - Atherosclerotic heart disease of [place] coronary artery without angina pectoris (6) Cardiomyopathy Status: Chronic Current Visit: Yes Qualifiers: Cardiomyopathy type: ischemic Qualified Code(s): I25.5 - Ischemic cardiomyopathy (7) Mitral regurgitation Status: Chronic Current Visit: No Qualifiers: Cardiac valve disease etiology: nonrheumatic Qualified Code(s): I34.0 - Nonrheumatic mitral (valve) insufficiency (8) Pulmonary hypertension Status: Chronic Current Visit: No Cardiology - PN: Subj Interval history: Mr. Meneses is alert and oriented and very talkative this morning. He denies any chest discomfort shortness of breath dizziness. He told me a couple long stories, one about trying to find Dr. Singh's office before he came in. He has not had any bleeding problems, and his rate is controlled this morning. Exam (Progress Note) - Constitutional Vitals: Period Temp Pulse Resp BP Sys/Valladares Pulse Ox Last 24 Hr 97.1 F-98.3 F 60-78 11-144 82-130/46-82 91-99 General appearance: normal weight, no acute distress - Head Head exam: Present: normal inspection, normocephalic, atraumatic - Respiratory Respiratory exam: Present: rhonchi. Absent: stridor, wheezes - Cardiovascular Cardiovascular exam: Present: irregular rhythm. Absent: diastolic murmur, rubs , tachycardia - GI/Abdominal GI/Abdominal exam: Present: soft. Absent: tenderness - Extremities Exam Extremities exam: Absent: edema - Neurological Exam Neurological exam: Present: alert, oriented X3 Result/EKG - Labs CBC & BMP: 06/22/17 03:46 06/22/17 03:46 Labs: Laboratory Results - last 24 hr 06/21/17 06/21/17 06/21/17 10:50 11:17 11:52 WBC RBC Hgb Hct MCV MCH MCHC RDW Plt Count MPV Neut % (Auto) Lymph % (Auto) [place] % (Auto) Eos % (Auto) Baso % (Auto) Neut # (Auto) Lymph # (Auto) [place] # (Auto) Eos # (Auto) Baso # (Auto) Total Counted Immature Gran % Nucleated RBC % Immature Gran # Segmented Neutrophils Lymphocytes Monocytes Nucleated RBCs # Platelet Estimate Giant Platelets Immature Plt Fraction Hypochromasia Ovalocytes Sodium Potassium Chloride Carbon Dioxide Anion Gap BUN Creatinine GFR Calculation BUN/Creatinine Ratio Glucose POC Glucose 110 H Calculated Osmolality Calcium Magnesium Total Creatine Kinase 170 Vitamin B12 Urine Color Yellow Urine Appearance Slightly hazy Urine pH 5.0 Ur Specific [place] 1.013 Urine Protein Negative Urine Glucose (UA) Negative Urine Ketones Negative Urine Blood Large Urine Nitrate Negative Urine Bilirubin Negative Urine Urobilinogen < 2.0 H Urine Leukocytes Small H Urine RBC 181 Urine WBC 12 Ur Squamous Epith Cells Occasional Urine Bacteria Occasional Hyaline Casts 112 Urine Mucus Occasional Ur Culture Indicated? Results to follow 06/21/17 06/21/17 06/21/17 13:06 15:42 21:24 WBC RBC Hgb Hct MCV MCH MCHC RDW Plt Count MPV Neut % (Auto) Lymph % (Auto) [place] % (Auto) Eos % (Auto) Baso % (Auto) Neut # (Auto) Lymph # (Auto) [place] # (Auto) Eos # (Auto) Baso # (Auto) Total Counted Immature Gran % Nucleated RBC % Immature Gran # Segmented Neutrophils Lymphocytes Monocytes Nucleated RBCs # Platelet Estimate Giant Platelets Immature Plt Fraction Hypochromasia Ovalocytes Sodium Potassium Chloride Carbon Dioxide Anion Gap BUN Creatinine GFR Calculation BUN/Creatinine Ratio Glucose POC Glucose 120 H 149 H Calculated Osmolality Calcium Magnesium Total Creatine Kinase Vitamin B12 547 Urine Color Urine Appearance Urine pH Ur Specific [place] Urine Protein Urine Glucose (UA) Urine Ketones Urine Blood Urine Nitrate Urine Bilirubin Urine Urobilinogen Urine Leukocytes Urine RBC Urine WBC Ur Squamous Epith Cells Urine Bacteria Hyaline Casts Urine Mucus Ur Culture Indicated? 06/22/17 06/22/17 06/22/17 03:46 03:46 07:33 WBC 18.3 H RBC 4.02 Hgb 12.0 L Hct 36.5 L MCV 90.8 MCH 30 MCHC 32.9 RDW 13.5 Plt Count 250 MPV 9.6 Neut % (Auto) 87.3 H Lymph % (Auto) 3.7 L [place] % (Auto) 7.7 Eos % (Auto) 0.6 Baso % (Auto) 0.2 Neut # (Auto) 16.0 H Lymph # (Auto) 0.7 L [place] # (Auto) 1.4 H Eos # (Auto) 0.1 Baso # (Auto) 0.0 Total Counted 100 Immature Gran % 0.5 Nucleated RBC % 0.0 Immature Gran # 0.10 Segmented Neutrophils 90 H Lymphocytes 5 L Monocytes 5 Nucleated RBCs # 0.00 Platelet Estimate Adequate Giant Platelets Few Immature Plt Fraction 0.0 Hypochromasia Slight Ovalocytes Slight Sodium 141 Potassium 5.1 Chloride 104 Carbon Dioxide 29 Anion Gap 13.1 BUN 45 H Creatinine 1.60 H GFR Calculation 47 BUN/Creatinine Ratio 28.00 H Glucose 110 H POC Glucose 126 H Calculated Osmolality 293.3 Calcium 8.6 Magnesium 2.2 Total Creatine Kinase Vitamin B12 Urine Color Urine Appearance Urine pH Ur Specific [place] Urine Protein Urine Glucose (UA) Urine Ketones Urine Blood Urine Nitrate Urine Bilirubin Urine Urobilinogen Urine Leukocytes Urine RBC Urine WBC Ur Squamous Epith Cells Urine Bacteria Hyaline Casts Urine Mucus Ur Culture Indicated? Quality Measures - VTE Contraindication to Pharmacological VTE Prophylaxis: Already on Theraputic Agent , No Prophylaxis Needed Specialty Discharge - Follow Up or Referrals
[2017-06-22] MEDS: METOPROLOL SUCCINATE XL 50 MG TABLET PO SCH ×2 (09:00→21:38)
[2017-06-22] MEDS ORDERED: METOPROLOL TARTRATE 25 MG TABLET PO SCH (09:00)
[2017-06-22] MEDS: APIXABAN 5 MG TABLET PO SCH ×2 (09:00→21:38)
[2017-06-22] MEDS: ASPIRIN EC 81 MG TABLET PO SCH (09:00)
[2017-06-22] MEDS: metFORMIN 500 MG TABLET PO SCH ×2 (09:00→17:45)
--- NOTE | 2017-06-22 09:28 | Hospitalist Progress Note ---
Assessment and Plan (1) Cardiomyopathy Status: Chronic Assessment and plan: History of aortocoronary bypass grafting. Cardiac catheterization showing graft patency but with severely depressed left ventricular systolic performance and significant mitral regurgitation and presumed secondary pulmonary hypertension April 2017. Recent placement of AICD. Atrial flutter with variable block Current Visit: Yes Qualifiers: Cardiomyopathy type: ischemic Qualified Code(s): I25.5 - Ischemic cardiomyopathy (2) Altered mental status Status: Acute Assessment and plan: History of chronic pain disorder and cannabinoid use, neurologic pattern is unclear possible conversion reaction. He has abruptly returned to baseline mental status. Current Visit: Yes (3) Dehydration Status: Acute Assessment and plan: This likely generated a mild prerenal azotemia. Poor intake coupled with use of Lasix for volume management appears to be the most likely mechanism however we will go ahead and hold his nonsteroidal anti-inflammatory drug to avoid further compromise in the setting of chronic jaqueline inhibitor use. We will provide cautious IV fluid support resuming Lasix as renal function recovers Current Visit: Yes Hospitalist: Subjective Interval history: 66-year-old male with remote aortocoronary bypass grafting who would presented with shortness of breath in April with repeat cardiac catheterization describing patent grafts with adequate distal runoff but severely diminished left ventricular systolic performance and severe mitral regurgitation. He had augmented V waves on right heart catheterization with pulmonary hypertension. Operative intervention was not felt to be feasible and the patient had an ICD implantation. He had presented with altered mental status with a very bizarre neurologic picture. Imaging studies were unremarkable. Apparently last evening around 2200 hrs. the patient suddenly awoke mildly confused and currently is well oriented. The various body positioning that he had demonstrated have resolved. Patient on this admission was also noted to be in atrial flutter with variable response. He has been followed by cardiology with rate control and systemic anticoagulation. In spite of his low ejection fraction we resumed IV fluids yesterday for a rising serum creatinine. Thus far he is tolerating the extra volume and his creatinine is returning towards baseline. We continue to suspect an element of conversion disorder associated with cardiac disease and premorbid psychopathies. The patient has been evaluated for potential psychiatric hospitalization and required 24 hours on the cassidy before this transfer can be certified peer Exam - Constitutional Vitals: Period Temp Pulse Resp BP Sys/Valladares Pulse Ox Last 24 Hr 97.1 F-98.3 F 60-77 11-144 82-130/46-82 91-99 General appearance: normal weight - Respiratory Respiratory exam: Present: clear to auscultation bilaterally. Absent: rales, rhonchi, wheezes - Cardiovascular Cardiovascular exam: Present: irregular rhythm (Atrial flutter with variable block), systolic murmur (Basilar flow murmur) - GI/Abdominal GI/Abdominal exam: Present: normal bowel sounds. Absent: tenderness - Extremities Exam Extremities exam: Absent: edema - Neurological Exam Neurological exam: Present: alert, oriented X3 Results - Labs CBC & BMP: 06/22/17 03:46 06/22/17 03:46 Quality Measures - VTE Contraindication to Pharmacological VTE Prophylaxis: Already on Theraputic Agent , No Prophylaxis Needed Specialty Discharge - Follow Up or Referrals
[2017-06-22] MEDS: HALOPERIDOL 5 MG/ML AMP IV PRN (15:30)
[2017-06-22] MEDS: DIGOXIN 0.125 MG TABLET PO SCH (17:45)
[2017-06-22] MEDS: HYDROmorphone 2 MG/1 ML VIAL IV PRN (19:50)
[2017-06-22] MEDS: ATORVASTATIN 80 MG TABLET PO SCH (21:38)
[2017-06-23] MEDS: AMPICILLIN INJ 2,000 MG in SODIUM CHLORIDE 0.9% 50 ML IV SCH ×3 (02:47→19:06)
[2017-06-23 03:31] LABS: Basophils % 0.2 % (0.0-0.8); Eosinophils # 0.6 10*3/uL (0.0-0.87); Hematocrit 32.8 VOL% (42.0-52.0); Hemoglobin 10.8 GM/DL (14.0-18.0); Immature Granulocytes % 0.4 %; Immature Granulocytes Absolute 0.04 #; Lymphocytes # 0.9 10*3/uL (1.4-4.0); Lymphocytes % 7.9 % (21.2-54.2); Mean Corpuscular HGB Conc 32.9 GM/DL (32-36); Mean Corpuscular Hemoglobin 30 PG (27-34); Mean Corpuscular Volume 90.1 FL (87-102); Mean Platelet Volume 9.2 FL (9.6-12.0); Monocytes # 1.1 10*3/uL (0.11-0.8); Neutrophils # 8.5 10*3/uL (1.4-7.4); Neutrophils % 76.5 % (38.7-73.9); Platelet Count 209 T/CUMM (130-400); Red Blood Count 3.64 MC/CUMM (3.8-5.5); Red Cell Distribution Width 13.4 % (9.3-17.3); White Blood Count 11.1 T/CUMM (4-12)
[2017-06-23 03:58] LABS: Calcium 8.5 MG/DL (8.5-10.1); Magnesium 2.1 MG/DL (1.8-2.4); Osmolality,Calculated 278.7 MOS/KG (273-304); Potassium 5.2 MMOL/L (3.5-5.1)
[2017-06-23] MEDS: ACYCLOVIR INJ 750 MG in SODIUM CHLORIDE 0.9% 250 ML IV SCH ×3 (04:55→21:10)
[2017-06-23] MEDS: LACTATED RINGERS 1,000 ML IV SCH (07:51)
[2017-06-23] MEDS: INSULIN LISPRO 100 UNIT/ML SUBCUT SCH ×4 (07:52→21:10)
[2017-06-23] MEDS: metFORMIN 500 MG TABLET PO SCH (08:03)
[2017-06-23] MEDS: APIXABAN 5 MG TABLET PO SCH ×2 (08:03→21:10)
[2017-06-23] MEDS: METOPROLOL SUCCINATE XL 50 MG TABLET PO SCH ×2 (08:03→21:10)
[2017-06-23] MEDS: ASPIRIN EC 81 MG TABLET PO SCH (08:03)
--- NOTE | 2017-06-23 08:55 | Cardiology Progress Note ---
Assessment and Plan (1) Altered mental status Status: Acute Assessment and plan: 1. 66-year-old WM with previous hypertension, DM, status post CABG approximately 1997 (DOWELL and vein grafts patent 02 May 2017) followed by Dr. Singh with severe ischemic cardiomyopathy (EF 20-25%) and severe mitral regurgitation with patent grafts (diffuse distal/small vessel disease not amenable to percutaneous or surgical intervention) April 2017, when he had severe pulmonary hypertension and was referred to [facility] for mitral valve clip, was not placed due to instability and he is to get a pacemaker placed ( presumably ICD/biventricular pacemaker 2 weeks ago by his report), and reports he was told to increase his Lasix this last Saturday (probably had early volume overload indicator on his pacemaker), who is really here for having hallucinations, although today seems to be alert and oriented with no complaints. 2. Hyponatremia is certainly possible cause of his mental status changes, as is illicit drug use, or prescription or [id number] drugs? His mental status seems to be quite good today, will continue to monitor. 3. Given his sodium is doing well and he has prone to volume overload, will discontinue IV fluids at this time. 4. His blood pressure systolic is in the 90s, and his heart rate is in the 60s , but given his severe cardiomyopathy he would likely benefit from restarting his Coreg 3.125 mg twice daily; his target blood pressure is much lower given his severe cardiomyopathy and MR. 5. He will be transferred to telemetry from cardiac standpoint. 6. Cardioversion could be considered at some point if he is on anticoagulation for 3 weeks? This is not urgent now as he seems to be stable hemodynamically and is asymptomatic. June 22, 2017: 1. Amazingly Mr. Meneses is alert and oriented this morning is very conversive without complaints 2. Discontinue diltiazem to avoid hypotension, and change short acting metoprolol to Toprol 50 mg twice daily to control rate and promote normal sinus rhythm as well as treat his cardiomyopathy 3. Change captopril to lisinopril twice daily for more convenient dosing 4. Continue Eliquis and baby aspirin; cardioversion could be considered after 3 weeks of anticoagulation if he does not convert to normal sinus rhythm. I am uncertain of the type of device that was implanted at [facility] as to whether has antitachycardia pacing capabilities that could be turned on at a later time. June 23, 2017: 1. Mr. Meneses continues to be alert and oriented and in good spirits without complaints (severe unusual mental status changes made a dramatic improvement yesterday morning) 2. Atrial flutter persistently with controlled rate 3. Severe cardiomyopathy with severe mitral regurgitation status post device implantation at [facility] about 3 weeks ago now 4. Continue Eliquis, beta-shayna, and ANDRIA inhibitor treatment. 5. He can be transferred to the telemetry floor from a cardiology standpoint Current Visit: Yes (2) Atrial flutter Status: Acute Current Visit: Yes (3) Cannabis abuse Status: Chronic Current Visit: Yes (4) Hyponatremia Status: Acute Current Visit: Yes (5) CAD (coronary artery disease) Status: Chronic Current Visit: Yes Qualifiers: Coronary Disease-Associated Artery/Lesion type: [place] artery [place] vs. transplanted heart: [place] heart Associated angina: without angina Qualified Code(s): I25.10 - Atherosclerotic heart disease of [place] coronary artery without angina pectoris (6) Cardiomyopathy Status: Chronic Current Visit: Yes Qualifiers: Cardiomyopathy type: ischemic Qualified Code(s): I25.5 - Ischemic cardiomyopathy (7) Mitral regurgitation Status: Chronic Current Visit: No Qualifiers: Cardiac valve disease etiology: nonrheumatic Qualified Code(s): I34.0 - Nonrheumatic mitral (valve) insufficiency (8) Pulmonary hypertension Status: Chronic Current Visit: No Cardiology - PN: Subj Interval history: Mr. Mcneil is again alert and oriented today and very conversive. He does not recall the immediate events before his admission but has detailed memory of the days prior to it. He has no complaints of chest discomfort dizziness palpitations, etc. Exam (Progress Note) - Constitutional Vitals: Period Temp Pulse Resp BP Sys/Valladares Pulse Ox Last 24 Hr 96 F-98.5 F 74-79 10-22 98-129/55-74 86-100 General appearance: normal weight, no acute distress - Head Head exam: Present: normal inspection, normocephalic - Neck Neck exam: Present: normal inspection - Respiratory Respiratory exam: Present: rales. Absent: stridor, wheezes - Cardiovascular Cardiovascular exam: Present: regular rate and rhythm, systolic murmur. Absent : tachycardia - GI/Abdominal GI/Abdominal exam: Present: soft. Absent: tenderness - Extremities Exam Extremities exam: Absent: edema Result/EKG - Labs CBC & BMP: 06/23/17 02:52 06/23/17 02:52 Labs: Laboratory Results - last 24 hr 06/22/17 06/22/17 06/22/17 11:50 16:34 20:23 WBC RBC Hgb Hct MCV MCH MCHC RDW Plt Count MPV Neut % (Auto) Lymph % (Auto) [place] % (Auto) Eos % (Auto) Baso % (Auto) Neut # (Auto) Lymph # (Auto) [place] # (Auto) Eos # (Auto) Baso # (Auto) Immature Gran % Nucleated RBC % Immature Gran # Nucleated RBCs # Immature Plt Fraction Sodium Potassium Chloride Carbon Dioxide Anion Gap BUN Creatinine GFR Calculation BUN/Creatinine Ratio Glucose POC Glucose 191 H 150 H 122 H Calculated Osmolality Calcium Magnesium 06/23/17 06/23/17 06/23/17 02:52 02:52 07:47 WBC 11.1 D RBC 3.64 L Hgb 10.8 L Hct 32.8 L MCV 90.1 MCH 30 MCHC 32.9 RDW 13.4 Plt Count 209 MPV 9.2 L Neut % (Auto) 76.5 H Lymph % (Auto) 7.9 L [place] % (Auto) 10.0 Eos % (Auto) 5.0 Baso % (Auto) 0.2 Neut # (Auto) 8.5 H Lymph # (Auto) 0.9 L [place] # (Auto) 1.1 H Eos # (Auto) 0.6 Baso # (Auto) 0.0 Immature Gran % 0.4 Nucleated RBC % 0.0 Immature Gran # 0.04 Nucleated RBCs # 0.00 Immature Plt Fraction 0.0 Sodium 138 Potassium 5.2 H Chloride 103 Carbon Dioxide 33 H Anion Gap 7.2 BUN 27 H D Creatinine 0.90 GFR Calculation 95 BUN/Creatinine Ratio 30.00 H Glucose 77 POC Glucose 92 Calculated Osmolality 278.7 Calcium 8.5 Magnesium 2.1 Quality Measures - VTE Contraindication to Pharmacological VTE Prophylaxis: Already on Theraputic Agent , No Prophylaxis Needed Specialty Discharge - Follow Up or Referrals
[2017-06-23] MEDS: SACUBITRIL/VALSARTAN 49-51 MG TABLET PO SCH ×2 (09:27→21:10)
--- NOTE | 2017-06-23 11:32 | Hospitalist Progress Note ---
Hospitalist: Subjective Interval history: 66-year-old male with severe CHF and cardiomyopathy, he is breathing better today. Exam - Constitutional Vitals: Period Temp Pulse Resp BP Sys/Valladares Pulse Ox Last 24 Hr 96 F-98.5 F 75-79 10 98-129/55-72 86-100 Exam: General: [No Acute Distress] HEENT: [Normocephalic, atraumatic, Extra ocular movements intact] Neck: [Supple, No JVD] Chest: [Clear to auscultation B/L] CV: [S1 + S2 audible with PSM] Abd: [soft, NT, Non-distended, BS +] Ext: [No edema] Skin: [No purpura, bruising or rash] Rheumatologic: [No Joint deformities] Neurologic: [Awake and alert] Results - Labs CBC & BMP: 06/23/17 02:52 06/23/17 02:52 - Impressions Assessment and Plan: Cardiomyopathy/chronic systolic congestive heart failure with a baseline ejection fraction 20-25% Status: Chronic Current Visit: Yes He has severe mitral regurgitation, has an ICD in place CAD/CABG Status: Chronic Current Visit: Yes Atrial flutter Status: Acute Current Visit: Yes On beta-shayna and Eliquis Altered mental status Status: Acute Assessment and plan: Mental status is improving. He is on several antibiotics including ampicillin and Rocephin and acyclovir. Neuro following Current Visit: Yes Quality Measures - VTE Contraindication to Pharmacological VTE Prophylaxis: Already on Theraputic Agent , No Prophylaxis Needed Specialty Discharge - Follow Up or Referrals
[2017-06-23] MEDS: DIGOXIN 0.125 MG TABLET PO SCH (13:50)
[2017-06-23] MEDS: ATORVASTATIN 80 MG TABLET PO SCH (21:10)
[2017-06-24] MEDS: AMPICILLIN INJ 2,000 MG in SODIUM CHLORIDE 0.9% 50 ML IV SCH ×2 (02:01→08:27)
[2017-06-24 05:15] LABS: Basophils % 0.1 % (0.0-0.8); Eosinophils # 0.5 10*3/uL (0.0-0.87); Eosinophils % 4.7 % (0.00-10.9); Hematocrit 30.8 VOL% (42.0-52.0); Hemoglobin 10.3 GM/DL (14.0-18.0); Immature Granulocytes % 0.7 %; Immature Granulocytes Absolute 0.07 #; Lymphocytes # 0.9 10*3/uL (1.4-4.0); Lymphocytes % 8.7 % (21.2-54.2); Mean Corpuscular HGB Conc 33.4 GM/DL (32-36); Mean Corpuscular Hemoglobin 30 PG (27-34); Mean Corpuscular Volume 88.8 FL (87-102); Monocytes # 1.1 10*3/uL (0.11-0.8); Monocytes % 10.1 % (1.7-12.7); Neutrophils # 7.9 10*3/uL (1.4-7.4); Neutrophils % 75.7 % (38.7-73.9); Platelet Count 213 T/CUMM (130-400); Red Blood Count 3.47 MC/CUMM (3.8-5.5); Red Cell Distribution Width 13.3 % (9.3-17.3); White Blood Count 10.4 T/CUMM (4-12)
[2017-06-24] MEDS: ACYCLOVIR INJ 750 MG in SODIUM CHLORIDE 0.9% 250 ML IV SCH ×2 (05:43→14:11)
[2017-06-24 05:57] LABS: Calcium 8.2 MG/DL (8.5-10.1); Magnesium 1.8 MG/DL (1.8-2.4); Osmolality,Calculated 273.8 MOS/KG (273-304); Potassium 4.6 MMOL/L (3.5-5.1)
--- NOTE | 2017-06-24 07:42 | Urology Consultation ---
History of Present Illness - Data of Consult Consult date: 06/24/17 - Consult Narrative History of present illness: Mr. Mcneil is a 66 year old male The patient is known to me. This 66-year-old white male has been seen in the office previously with a right hydrocele. I offered the patient either aspiration or surgical repair but recommended no treatment he was asymptomatic and he elected to have no treatment. His scrotal swelling is stable and he again does not desire treatment. Physical examination is compatible with a right hydrocele and this was confirmed on scrotal ultrasound. The patient gets his prostate screening from Dr. Whitman his family doctor. He will return to see me if the hydrocele become symptomatic and he desires repair otherwise I will see him again as needed CC: Wilver Avila MD - Home Medications and Allergies Home Medications: Home Medications Medication Instructions Recorded Confirmed Type Nitroglycerin 0.4 mg SL DIRECTED PRN 05/24/17 06/17/17 History metFORMIN [Glucophage] 500 mg PO BID W/MEALS 05/24/17 06/17/17 History Aspirin EC Tab 81 mg PO QAM 05/25/17 06/17/17 History Spironolactone [Aldactone] 25 mg PO QAM 05/25/17 06/17/17 History Amiodarone Tab [Cordarone Tab] 200 mg PO DAILY 06/17/17 06/18/17 History Apixaban [Eliquis] 5 mg PO BID 06/17/17 06/17/17 History Atorvastatin [Lipitor] 80 mg PO BEDTIME 06/17/17 06/17/17 History Carvedilol [Coreg] 6.25 mg PO BID 06/17/17 06/18/17 History Furosemide Tab [Lasix Tab] 40 mg PO DAILY 06/17/17 06/18/17 History Lisinopril 10 mg PO DAILY 06/18/17 06/18/17 History Allergies/Adverse Reactions: Allergies Allergy/AdvReac Type Severity Reaction Status Date / Time No Known Allergies Allergy Verified 05/25/17 19:11 Medical,Surgical,& Family Hx - Medical History Cardio: History of: CHF (Ischemic cardiomyopathy with ejection fraction of 15%) , CAD, Hypertension, Pacemaker, Cardiovascular Problems Psychological: No history of: Psychiatric Problems Neurology: No history of: Cerebrovascular Accident, Seizures, TIA HEENT: No history of: Ear Problem, Eye Problem Endocrine: History of: Diabetes Mellitus (NIDDM) Respiratory: No history of: Asthma, COPD Renal: No history of: Renal Problems Genitourinary: No history of: Problems Gastrointestinal: No history of: GI Problems Musculoskeletal: No history of: Back/Neck Problems, Musculoskeletal Problems Hematology: No history of: Anemia, Bleeding Problems, Clotting Problems Other: No history of: Cancer - Surgical History Cardiac Surgeries: Sugical HX of: Cardiac Catheterization ([facility] PM Defib implant 05/2017), Cardiac Surgery (bypass 19 years ago) Thoracic Surgeries: Patient denies;: Organ Transplant - Family History Family History: Reports;: Family Cancer, Family Diabetes (mother), Family Heart Disease (father), Family Hypertension (father) - Social History Smoking Status: Current every day smoker Frequency of Alcohol Use: None Type of Drug Use: Marijuana Exam - Constitutional Vitals: Period Temp Pulse Resp BP Sys/Valladares Pulse Ox Last 24 Hr 97.7 F-99.9 F 75-80 10-18 102-129/51-72 93-98 Results - Labs CBC & BMP: 06/24/17 04:30 06/24/17 04:30 Specialty Discharge - Follow Up or Referrals
[2017-06-24] MEDS: INSULIN LISPRO 100 UNIT/ML SUBCUT SCH ×4 (08:25→21:24)
[2017-06-24] MEDS: FUROSEMIDE 40 MG TABLET PO SCH (08:26)
[2017-06-24] MEDS: SACUBITRIL/VALSARTAN 49-51 MG TABLET PO SCH ×2 (08:26→21:24)
[2017-06-24] MEDS: ASPIRIN EC 81 MG TABLET PO SCH (08:26)
[2017-06-24] MEDS: METOPROLOL SUCCINATE XL 50 MG TABLET PO SCH ×2 (08:26→21:24)
[2017-06-24] MEDS: APIXABAN 5 MG TABLET PO SCH ×2 (08:27→21:24)
--- NOTE | 2017-06-24 13:13 | Neurology Progress Note ---
Neurology - PN : Subjective Interval history: Patient seems to be doing much better. He just woke up 2 days ago and started talking normally. The underlying pathophysiology is is still not clear. I am not sure if we are dealing with any infectious etiology or not. Cannot rule out the possibility of any psych problems. Exam (Progress Note) - Constitutional Vitals: Period Temp Pulse Resp BP Sys/Valladares Pulse Ox Last 24 Hr 97.7 F-99.9 F 68-80 14-20 106-122/51-74 93-98 Exam: GENERAL: Patient is in no acute distress. NECK: Neck is supple. There is no JVD. No carotid bruits present. No thyroid masses. CVS: First and second heart sounds are normal. There is no S3 present. Regular rate and rhythm. RESPIRATORY: Lungs are clear to auscultation without any rales or rhonchi. ABDOMEN: Soft and non-tender. Bowel sounds are present. There is no hepatosplenomegaly. EXT: There is no palpable edema. Peripheral pulses are present. Skin: No rashes Central Nervous system: General: Alert, awake and Oriented x 3 Speech: Fluent Comprehension: Intact and normal Facial expressions: Normal Cranial Nerves: CN1/Olfactory: Normal CN II/ Optic: Normal, Visual Scott unreliable CN III, and : SYDNEY & EOMI CN V: Normal & intact CN VII: face is symmetric CNVIII: Normal CN XI/X/XI/XII: Intact and Normal Motor: Bulk and Tone is normal. Strength in the right 5/5 Strength in the left 5/5 Sensory: Grossly intact for all the modalities of PP, LT and temp sense Reflexes: 1+ and symmetrical Cerebellar function: Normal finger to nose and heel to boyer testing. Toes: Equivocal Gait: Not tested at this time Results - Labs CBC & BMP: 06/24/17 04:30 06/24/17 04:30 Assessment and Plan (1) Altered mental status Status: Resolved Assessment and plan: We will continue Rocephin and acyclovir for now Stop ampicillin Recommend psych evaluation as an outpatient Current Visit: Yes Quality Measures - VTE Contraindication to Pharmacological VTE Prophylaxis: Already on Theraputic Agent , No Prophylaxis Needed Specialty Discharge - Follow Up or Referrals
[2017-06-24] MEDS: DIGOXIN 0.125 MG TABLET PO SCH (13:38)
--- NOTE | 2017-06-24 16:06 | Hospitalist Progress Note ---
Hospitalist: Subjective Interval history: Patient is awake and alert and reports that his breathing is better Exam - Constitutional Vitals: Period Temp Pulse Resp BP Sys/Valladares Pulse Ox Last 24 Hr 97.7 F-99.9 F 68-80 15-20 106-122/51-74 93-98 Exam: General: [No Acute Distress] HEENT: [Normocephalic, atraumatic, Extra ocular movements intact] Neck: [Supple, No JVD] Chest: [Clear to auscultation B/L] CV: [S1 + S2 audible with PSM] Abd: [soft, NT, Non-distended, BS +] Ext: [No edema] Skin: [No purpura, bruising or rash] Rheumatologic: [No Joint deformities] Neurologic: [Awake and alert] Results - Labs CBC & BMP: 06/24/17 04:30 06/24/17 04:30 - Impressions Assessment and Plan: Cardiomyopathy/chronic systolic congestive heart failure with a baseline ejection fraction 20-25% Status: Chronic Current Visit: Yes He is on beta-shayna and Entresto 49/51, tolerating well , he has severe mitral regurgitation, has an ICD in place CAD/CABG Status: Chronic Current Visit: Yes Atrial flutter Status: Acute Current Visit: Yes On beta-shayna and Eliquis Altered mental status Status: Acute Assessment and plan: Mental status is improving. He is on IV antibiotics Rocephin and acyclovir. Current Visit: Yes We will get some physical therapy for him. Quality Measures - VTE Contraindication to Pharmacological VTE Prophylaxis: Already on Theraputic Agent , No Prophylaxis Needed Specialty Discharge - Follow Up or Referrals
--- NOTE | 2017-06-24 18:20 | Cardiology Progress Note ---
Chris Goldberg Lesley, NP, am scribing for, and in the presence of, Rocco Peña MD 18:20. Assessment and Plan - Time spent with patient Time spent with patient: Greater than 30 minutes (Record review, assessment, and documented) (1) CAD (coronary artery disease) Status: Chronic Assessment and plan: SEE PLAN LISTED BELOW Current Visit: Yes Qualifiers: Coronary Disease-Associated Artery/Lesion type: [place] artery [place] vs. transplanted heart: [place] heart Associated angina: without angina Qualified Code(s): I25.10 - Atherosclerotic heart disease of [place] coronary artery without angina pectoris (2) Mitral regurgitation Status: Chronic Assessment and plan: SEE PLAN LISTED BELOW Current Visit: No Qualifiers: Cardiac valve disease etiology: nonrheumatic Qualified Code(s): I34.0 - Nonrheumatic mitral (valve) insufficiency (3) Pulmonary hypertension Status: Chronic Assessment and plan: SEE PLAN LISTED BELOW Current Visit: No (4) Cardiomyopathy Status: Chronic Assessment and plan: SEE PLAN LISTED BELOW Current Visit: Yes Qualifiers: Cardiomyopathy type: ischemic Qualified Code(s): I25.5 - Ischemic cardiomyopathy (5) Altered mental status Status: Resolved Assessment and plan: SEE PLAN LISTED BELOW Current Visit: Yes (6) Cannabis abuse Status: Chronic Assessment and plan: SEE PLAN LISTED BELOW Current Visit: Yes (7) Atrial flutter Status: Chronic Assessment and plan: SEE PLAN LISTED BELOW Current Visit: Yes Cardiology - PN: Subj Interval history: [employer]: Dr. Singh SUMMARY: Mr. Mcneil is a 66 y/o WM who presented with altered mental status and hyponatremia. He reports he was told to increase his Lasix recently. He has a history of hypertension, DM, status post CABG approximately 1997 (DOWELL and vein grafts patent 02 May 2017) followed by Dr. Singh with severe ischemic cardiomyopathy (EF 20-25%) and severe mitral regurgitation with patent grafts ( diffuse distal/small vessel disease not amenable to percutaneous or surgical intervention). April 2017, when he had severe pulmonary hypertension and was referred to [facility] for mitral valve clip, was not placed due to instability. He had an ICD placed 2 weeks ago. He has continued to have an altered mental status throughout hospitalization without clear etiology. Repeat head CT on showed no acute abnormality. Clinically it appears that his mental status significantly improved over the weekend. He is sitting up in bed this morning, having breakfast, without confusion and quite alert. IMPRESSION AND PLAN: 1. ALTERED MENTAL STATUS - etiology unknown. 2. ATRIAL FLUTTER - rate controlled, continue digoxin, Eliquis. Consider cardioversion? 3. CANNABIS ABUSE -UDS positive this admission, patient reports using 1 day prior to admission and regularly. 4. HYPONATREMIA -resolved. 5. CAD -continue beta-shayna, ANDRIA inhibitor, ASA. 6. ISCHEMIC CARDIOMYOPATHY -EF 20-25%, had pacemaker/ICD placed at [facility] approximately 3 weeks ago. 7. MITRAL REGURGITATION -patient was not a candidate for mitral valve clip, and underwent pacemaker/ICD instead. 8. PULMONARY HYPERTENSION -continue Lasix and other medications. Patient personally interviewed and examined chart reviewed. Discussed case with BELINDA Solano and agree with the evaluation and assessment plan. In summation and addition the patient continues to have altered mental status make his history difficult. He has atrial flutter certainly conversion would be appropriate but I am not sure if completely beneficial but I do not think at this time is appropriate. We are is not clear exactly how long he has been on his Eliquis. From a cardiomyopathy standpoint he is fairly stable at this time. We will continue to monitor his cardiac status. Exam (Progress Note) - Constitutional Vitals: Period Temp Pulse Resp BP Sys/Valladares Pulse Ox Last 24 Hr 97.7 F-99.9 F 68-80 10-20 102-129/51-71 93-98 Exam: General: [Appears well with no apparent distress.] [Pleasant and cooperative. ] [Appears comfortable.] HEENT: [PERRL, normocephalic, atraumatic]. [Mucous membranes moist.] [No jaundice noted.] [Conjunctiva moist and clear, sclerae anicteric.] Neck: [No thyromegaly or lymphadenopathy noted.] [ No carotid bruit appreciated. ] Cardiac: [Irregular rate and rhythm.] [Murmur present, no rub or gallop.] [ PMI is nondisplaced.] Lungs: [Clear to auscultation without accessory muscle use to assist the respiratory pattern.] [Oxygen in use via nasal cannula.] Abdomen: [Soft, bowel sounds normoactive.] [Nontender and nondistended.] [No abdominal bruit or thrill noted.] [No masses noted.] Musculoskeletal: [No fluid collection.] [Full range of motion is noted.] Extremities: [No clubbing, cyanosis noted.] [ No edema noted.] [Upper extremity pulses 2+.] [Lower extremity pulses 2+.] [Capillary refill less than 3 seconds.] Skin: [No unusual lesions or rashes.] [No skin breakdown appreciated.] Neuro: [Awake, alert and oriented 3.] [Moves all extremities well without hemiparesis or paralysis.] [No essential tremor is appreciated.] Result/EKG - Labs CBC & BMP: 06/24/17 04:30 06/24/17 04:30 Lab Results: I have reviewed the past 24 hour labs Labs: Laboratory Results - last 24 hr 06/23/17 06/23/17 06/23/17 11:37 15:44 19:41 WBC RBC Hgb Hct MCV MCH MCHC RDW Plt Count MPV Neut % (Auto) Lymph % (Auto) [place] % (Auto) Eos % (Auto) Baso % (Auto) Neut # (Auto) Lymph # (Auto) [place] # (Auto) Eos # (Auto) Baso # (Auto) Immature Gran % Nucleated RBC % Immature Gran # Nucleated RBCs # Immature Plt Fraction Sodium Potassium Chloride Carbon Dioxide Anion Gap BUN Creatinine GFR Calculation BUN/Creatinine Ratio Glucose POC Glucose 173 H 213 H 153 H Calculated Osmolality Calcium Magnesium 06/24/17 06/24/17 06/24/17 04:30 04:30 07:15 WBC 10.4 RBC 3.47 L Hgb 10.3 L Hct 30.8 L MCV 88.8 MCH 30 MCHC 33.4 RDW 13.3 Plt Count 213 MPV 9.0 L Neut % (Auto) 75.7 H Lymph % (Auto) 8.7 L [place] % (Auto) 10.1 Eos % (Auto) 4.7 Baso % (Auto) 0.1 Neut # (Auto) 7.9 H Lymph # (Auto) 0.9 L [place] # (Auto) 1.1 H Eos # (Auto) 0.5 Baso # (Auto) 0.0 Immature Gran % 0.7 Nucleated RBC % 0.0 Immature Gran # 0.07 Nucleated RBCs # 0.00 Immature Plt Fraction 0.0 Sodium 137 Potassium 4.6 Chloride 103 Carbon Dioxide 31 Anion Gap 7.6 BUN 14 Creatinine 0.80 GFR Calculation 101 BUN/Creatinine Ratio 17.00 Glucose 97 POC Glucose 112 H Calculated Osmolality 273.8 Calcium 8.2 L Magnesium 1.8 - Diagnostic Findings Procedure: Chest x-ray: report reviewed by me - EKG EKG results: interpreted by me (Atrial flutter) Quality Measures - VTE Contraindication to Pharmacological VTE Prophylaxis: Already on Theraputic Agent , No Prophylaxis Needed Specialty Discharge - Follow Up or Referrals I, Rocco Peña MD, personally performed the services described in this documentation, ascribed by Rupa Perez NP in my presence, and it is both accurate and complete 820 .
[2017-06-24] MEDS: ATORVASTATIN 80 MG TABLET PO SCH (21:24)
[2017-06-25] MEDS: ACYCLOVIR INJ 750 MG in SODIUM CHLORIDE 0.9% 250 ML IV SCH ×3 (00:14→08:34)
[2017-06-25 05:14] LABS: Basophils % 0.3 % (0.0-0.8); Eosinophils # 0.4 10*3/uL (0.0-0.87); Eosinophils % 4.4 % (0.00-10.9); Hematocrit 31.9 VOL% (42.0-52.0); Immature Granulocytes % 0.8 %; Immature Granulocytes Absolute 0.08 #; Lymphocytes # 1.1 10*3/uL (1.4-4.0); Lymphocytes % 11.3 % (21.2-54.2); Mean Corpuscular HGB Conc 34.5 GM/DL (32-36); Mean Corpuscular Hemoglobin 30 PG (27-34); Mean Corpuscular Volume 87.2 FL (87-102); Mean Platelet Volume 9.7 FL (9.6-12.0); Monocytes # 1.1 10*3/uL (0.11-0.8); Monocytes % 10.9 % (1.7-12.7); Neutrophils # 7.1 10*3/uL (1.4-7.4); Neutrophils % 72.3 % (38.7-73.9); Platelet Count 235 T/CUMM (130-400); Red Blood Count 3.66 MC/CUMM (3.8-5.5); Red Cell Distribution Width 13.3 % (9.3-17.3); White Blood Count 9.8 T/CUMM (4-12)
[2017-06-25 05:45] LABS: Potassium 4.1 MMOL/L (3.5-5.1)
[2017-06-25] MEDS: INSULIN LISPRO 100 UNIT/ML SUBCUT SCH ×4 (08:34→20:07)
[2017-06-25] MEDS ORDERED: ACETAMINOPHEN 500 MG TABLET ONE (09:06)
[2017-06-25] MEDS ORDERED: ACETAMINOPHEN 500 MG TABLET PO PRN (09:09)
[2017-06-25] MEDS: SACUBITRIL/VALSARTAN 49-51 MG TABLET PO SCH ×2 (09:31→20:06)
[2017-06-25] MEDS: ASPIRIN EC 81 MG TABLET PO SCH (09:31)
[2017-06-25] MEDS: METOPROLOL SUCCINATE XL 50 MG TABLET PO SCH ×2 (09:32→20:07)
[2017-06-25] MEDS: FUROSEMIDE 40 MG TABLET PO SCH (09:32)
[2017-06-25] MEDS: APIXABAN 5 MG TABLET PO SCH ×2 (09:34→20:07)
[2017-06-25 10:50] LABS: Aldolase 8.3 U/L (<7.7)
[2017-06-25] MEDS: DIGOXIN 0.125 MG TABLET PO SCH (13:40)
[2017-06-25] MEDS ORDERED: ACETAMINOPHEN 500 MG TABLET PO SCH (14:00)
--- NOTE | 2017-06-25 15:09 | Neurology Progress Note ---
Neurology - PN : Subjective Interval history: Patient seems to be doing really well from neuro standpoint. He is alert awake and oriented. No new problems reported. He is getting up and walking fine by himself. Exam (Progress Note) - Constitutional Vitals: Period Temp Pulse Resp BP Sys/Valladares Pulse Ox Last 24 Hr 97.5 F-99.0 F 77-84 16-20 119-133/64-81 91-97 Exam: GENERAL: Patient is in no acute distress. NECK: Neck is supple. There is no JVD. No carotid bruits present. No thyroid masses. CVS: First and second heart sounds are normal. There is no S3 present. Regular rate and rhythm. RESPIRATORY: Lungs are clear to auscultation without any rales or rhonchi. ABDOMEN: Soft and non-tender. Bowel sounds are present. There is no hepatosplenomegaly. EXT: There is no palpable edema. Peripheral pulses are present. Skin: No rashes Central Nervous system: General: Alert, awake and Oriented x 3 Speech: Fluent Comprehension: Intact and normal Facial expressions: Normal Cranial Nerves: CN1/Olfactory: Normal CN II/ Optic: Normal, Visual Scott unreliable CN III, and : [place] & EOMI CN V: Normal & intact CN VII: face is symmetric CNVIII: Normal CN XI/X/XI/XII: Intact and Normal Motor: Bulk and Tone is normal. Strength in the right 5/5 Strength in the left 5/5 Sensory: Grossly intact for all the modalities of PP, LT and temp sense Reflexes: 1+ and symmetrical Cerebellar function: Normal finger to nose and heel to boyer testing. Toes: Equivocal Gait: Getting up and walking by himself Results - Labs CBC & BMP: 06/25/17 03:24 06/25/17 03:24 Assessment and Plan (1) Altered mental status Status: Resolved Assessment and plan: Stop Rocephin and acyclovir Ceftin 500 mg p.o. twice daily for 7 days Agree with [facility] placement Sign off please call as needed Current Visit: Yes Quality Measures - VTE Contraindication to Pharmacological VTE Prophylaxis: Already on Theraputic Agent , No Prophylaxis Needed Specialty Discharge - Follow Up or Referrals
--- NOTE | 2017-06-25 16:54 | Hospitalist Progress Note ---
Hospitalist: Subjective Interval history: Patient awake and comfortable, altered mental status has much improved Exam - Constitutional Vitals: Period Temp Pulse Resp BP Sys/Valladares Pulse Ox Last 24 Hr 97.5 F-98.7 F 73-84 16-20 121-133/64-81 91-97 Exam: General: [No Acute Distress] HEENT: [Normocephalic, atraumatic, Extra ocular movements intact] Neck: [Supple, No JVD] Chest: [Clear to auscultation B/L] CV: [S1 + S2 audible with PSM] Abd: [soft, NT, Non-distended, BS +] Ext: [No edema] Skin: [No purpura, bruising or rash] Rheumatologic: [No Joint deformities] Neurologic: [Awake and alert] Results - Labs CBC & BMP: 06/25/17 03:24 06/25/17 03:24 - Impressions Assessment and Plan: Cardiomyopathy/chronic systolic congestive heart failure with a baseline ejection fraction 20-25% Status: Chronic Current Visit: Yes He is on beta-shayna and Entresto 49/51, tolerating well , he has severe mitral regurgitation, has an ICD in place CAD/CABG Status: Chronic Current Visit: Yes Atrial flutter Status: Acute Current Visit: Yes On beta-shayna and Eliquis Altered mental status Status: Acute Assessment and plan: Mental status is improving. IV antibiotics have discontinued, he is on Ceftin. Lines going to evaluate him for possible psychiatric issues. Current Visit: Yes We will get some physical therapy for him. Quality Measures - VTE Contraindication to Pharmacological VTE Prophylaxis: Already on Theraputic Agent , No Prophylaxis Needed Specialty Discharge - Follow Up or Referrals
--- NOTE | 2017-06-25 17:11 | Cardiology Progress Note ---
<Belle Roper E - Last Filed: 06/25/17 17:36> Assessment and Plan - Time spent with patient Time spent with patient: Less than 30 minutes (1) Atrial flutter Status: Chronic Assessment and plan: See plan of care listed below. Current Visit: Yes (2) Altered mental status Status: Resolved Assessment and plan: See plan of care listed below. Current Visit: Yes (3) Hyponatremia Status: Acute Assessment and plan: See plan of care listed below. Current Visit: Yes (4) CAD (coronary artery disease) Status: Chronic Assessment and plan: See plan of care listed below. Current Visit: Yes Qualifiers: Coronary Disease-Associated Artery/Lesion type: [place] artery [place] vs. transplanted heart: nez perce heart Associated angina: without angina Qualified Code(s): I25.10 - Atherosclerotic heart disease of [place] coronary artery without angina pectoris (5) Cardiomyopathy Status: Chronic Assessment and plan: See plan of care listed below. Current Visit: Yes Qualifiers: Cardiomyopathy type: ischemic Qualified Code(s): I25.5 - Ischemic cardiomyopathy (6) Mitral regurgitation Status: Chronic Assessment and plan: See plan of care listed below. Current Visit: No Qualifiers: Cardiac valve disease etiology: nonrheumatic Qualified Code(s): I34.0 - Nonrheumatic mitral (valve) insufficiency (7) Cannabis abuse Status: Chronic Assessment and plan: See plan of care listed below. Current Visit: Yes (8) Diabetes mellitus Status: Chronic Assessment and plan: See plan of care listed below. Current Visit: No Qualifiers: Diabetes mellitus type: type 2 (9) Hypertension Status: Chronic Assessment and plan: See plan of care listed below. Current Visit: No Qualifiers: Hypertension type: essential hypertension Qualified Code(s): I10 - Essential (primary) hypertension Cardiology - PN: Subj Interval history: [place]: Dr. Singh SUMMARY: Mr. Mcneil is a 66 y/o WM who presented with altered mental status and hyponatremia. He reports he was told to increase his Lasix recently. He has a history of hypertension, DM, status post CABG approximately 1997 (DOWELL and vein grafts patent 02 May 2017) followed by Dr. Singh with severe ischemic cardiomyopathy (EF 20-25%) and severe mitral regurgitation with patent grafts ( diffuse distal/small vessel disease not amenable to percutaneous or surgical intervention) April 2017, when he had severe pulmonary hypertension and was referred to [facility] for mitral valve clip, was not placed due to instability. He had an ICD placed 2 weeks ago. He has continued to have an altered mental status throughout hospitalization without clear etiology. After speaking with both of his sons, I have gathered that Mr. Mcneil has smoked marijuana since high school with the same friend. His son Eduar reports he usually smokes medical grade marijuana and cannot imagine that he would have done any differently this weekend; however, the patient's grand that he normally smokes with reports that he believes Mr. Mcneil found some old marijuana of his brothers and smoked that Saturday evening. Mr. Mcneil' brother has been for over a year. Repeat head CT on 06/20/17 showed no acute abnormality. 2016: Over the weekend, Mr. Mcneil has made significant improvements. He continued to have intermittent bouts of confusion but is much more oriented today. From a cardiac standpoint, he has improved and is hemodynamically stable. He remains in atrial flutter with controlled rate. Once he has been discharged, he will need to follow up with Dr. Singh in a couple of weeks. He also has a follow up appointment with Dr. Jean at [facility] in the next week or so as well. Dr. Peña to follow with further plan and addendum. IMPRESSION/PLAN: 1. ATRIAL FLUTTER: He remains in atrial flutter. Cardioversion could be considered as he has been on anticoagulation for approximately 3 weeks. Continue Eliquis 5 mg p.o. twice daily. 2. ALTERED MENTAL STATUS: Possible etiology would include hyponatremia, illicit drug use, or prescription or [id number] drugs. He has continued to have an altered mental status throughout hospitalization without clear etiology. 3. HYPONATREMIA: Resolved. 4. CORONARY ARTERY DISEASE: Patent grafts per 05/27/17 [facility] with diffuse distal/ small vessel disease not amenable to percutaneous or surgical intervention. Continue aspirin, beta shayna, statin. 5. ISCHEMIC CARDIOMYOPATHY: S/p AICD implant approximately 3 weeks ago. Continue Toprol XL, statin, aspirin, lasix, digoxin. We will continue to monitor and adjust accordingly. 6. MITRAL REGURGITATION: Mitral valve clip was not placed due to instability and he underwent placement of ICD approximately 2 weeks ago. 7. CANNABIS ABUSE: Urine drug screen this admission positive for cannabis. Patient reports using cannabis one day prior to admission. 8. DIABETES MELLITUS: He is on accuchecks and sliding scale insulin. 9. HYPERTENSION: Currently well controlled. Will continue to monitor and adjust accordingly. Exam (Progress Note) - Constitutional Vitals: Period Temp Pulse Resp BP Sys/Valladares Pulse Ox Last 24 Hr 97.5 F-98.7 F 73-84 16-20 121-133/64-81 91-97 Exam: General appearance: Appears well. Pleasant and cooperative. Overweight, no acute distress. Head exam: Present: normal inspection, normocephalic, atraumatic. Absent: hematoma, laceration Eye exam: Absent: conjunctival injection, periorbital swelling, scleral icterus , laceration to eyelids, jaundice Pupils: Present: PERRL. Absent: constricted, dilated, fixed, irregular, unequal ENT exam: Present: normal exam, normal external ear exam, mucous membranes moist. Neck exam: Present: normal inspection, midline trachea. Absent: masses, lymphadenopathy, tenderness, thyromegaly Respiratory exam: Present: clear to auscultation bilaterally. Absent: accessory muscle use, chest wall tenderness, rales, rhonchi, wheezing. Cardiovascular exam: Present: Irregular rate and rhythm. Systolic murmur. Absent : gallop, JVD, rubs GI/Abdominal exam: Present: normal bowel sounds, soft. Absent: distended, firm , hernia, mass, tenderness. Extremities exam: Present: Normal Gait, No Clubbing, No Cyanosis, Upper Extr. Pulses 2+, Lower Extr. Pulses 2+, No edema. Capillary refill less than 3 seconds. Musculoskeletal: Present: No Fluid Collection, No Pain, Normal Range of Motion Back exam: Present: normal inspection. Absent: muscle spasm, vertebral tenderness Neurological exam: Present: Alert and oriented x 3. Moves all extremities well without hemiparesis or paralysis. No resting or essential tremor Psychiatric exam: Present: Normal affect. Normal mood. Skin exam: Present: normal color, warm, dry, intact. Left chest wall pacemaker incision well approximated, s redness, edema, or drainage. Mild ecchymosis at site. Absent: cyanosis, diaphoretic, rash, urticaria Result/EKG - Labs CBC & BMP: 06/25/17 03:24 06/25/17 03:24 Lab Results: I have reviewed the past 24 hour labs Labs: Laboratory Results - last 24 hr 06/21/17 06/24/17 06/25/17 13:06 18:54 03:24 WBC 9.8 RBC 3.66 L Hgb 11.0 L Hct 31.9 L MCV 87.2 MCH 30 MCHC 34.5 RDW 13.3 Plt Count 235 MPV 9.7 Neut % (Auto) 72.3 Lymph % (Auto) 11.3 L [place] % (Auto) 10.9 Eos % (Auto) 4.4 Baso % (Auto) 0.3 Neut # (Auto) 7.1 Lymph # (Auto) 1.1 L [place] # (Auto) 1.1 H Eos # (Auto) 0.4 Baso # (Auto) 0.0 Immature Gran % 0.8 Nucleated RBC % 0.0 Immature Gran # 0.08 Nucleated RBCs # 0.00 Immature Plt Fraction 0.0 Sodium Potassium Chloride Carbon Dioxide Anion Gap BUN Creatinine GFR Calculation BUN/Creatinine Ratio Glucose POC Glucose 262 H Calculated Osmolality Calcium Magnesium Aldolase 8.3 H 06/25/17 06/25/17 06/25/17 03:24 07:46 11:06 WBC RBC Hgb Hct MCV MCH MCHC RDW Plt Count MPV Neut % (Auto) Lymph % (Auto) [place] % (Auto) Eos % (Auto) Baso % (Auto) Neut # (Auto) Lymph # (Auto) [place] # (Auto) Eos # (Auto) Baso # (Auto) Immature Gran % Nucleated RBC % Immature Gran # Nucleated RBCs # Immature Plt Fraction Sodium 136 Potassium 4.1 Chloride 99 Carbon Dioxide 29 Anion Gap 12.1 BUN 16 Creatinine 0.80 GFR Calculation 101 BUN/Creatinine Ratio 20.00 Glucose 82 POC Glucose 104 121 H Calculated Osmolality 271.0 L Calcium 8.0 L Magnesium 2.0 Aldolase 06/25/17 14:59 WBC RBC Hgb Hct MCV MCH MCHC RDW Plt Count MPV Neut % (Auto) Lymph % (Auto) [place] % (Auto) Eos % (Auto) Baso % (Auto) Neut # (Auto) Lymph # (Auto) [place] # (Auto) Eos # (Auto) Baso # (Auto) Immature Gran % Nucleated RBC % Immature Gran # Nucleated RBCs # Immature Plt Fraction Sodium Potassium Chloride Carbon Dioxide Anion Gap BUN Creatinine GFR Calculation BUN/Creatinine Ratio Glucose POC Glucose 172 H Calculated Osmolality Calcium Magnesium Aldolase - EKG EKG results: interpreted by me (atrial flutter) Quality Measures - VTE Contraindication to Pharmacological VTE Prophylaxis: Already on Theraputic Agent , No Prophylaxis Needed Specialty Discharge - Follow Up or Referrals <Rocco Peña - Last Filed: 06/25/17 20:05> Assessment and Plan (1) CAD (coronary artery disease) Status: Chronic Current Visit: Yes Qualifiers: Coronary Disease-Associated Artery/Lesion type: nez [place] artery [place] vs. transplanted heart: nez perce heart Associated angina: without angina Qualified Code(s): I25.10 - Atherosclerotic heart disease of [place] coronary artery without angina pectoris (2) Mitral regurgitation Status: Chronic Current Visit: No Qualifiers: Cardiac valve disease etiology: nonrheumatic Qualified Code(s): I34.0 - Nonrheumatic mitral (valve) insufficiency (3) Pulmonary hypertension Status: Chronic Current Visit: No (4) Cardiomyopathy Status: Chronic Current Visit: Yes Qualifiers: Cardiomyopathy type: ischemic Qualified Code(s): I25.5 - Ischemic cardiomyopathy (5) Altered mental status Status: Resolved Current Visit: Yes (6) Cannabis abuse Status: Chronic Current Visit: Yes (7) Atrial flutter Status: Chronic Current Visit: Yes Cardiology - PN: Subj Interval history: Patient personally interviewed and examined chart reviewed. Discussed this patient's case with Belle Roper NP. I agree with the evaluation and assessment and plan. The patient's atrial flutter remains stable with ventricular spots appropriate and on Eliquis. This patient can undergo cardioversion in the future and medical treatment is indicated by Dr. singh. The patient's mental status is markedly improved tonight compared to yesterday' s mental status. His anemia and H&H remained stable. His chemistries are stable as well. Patient hopefully will be able to be discharged soon and follow-up as an outpatient. Dr. Singh is following the patient previously. Exam (Progress Note) - Constitutional Vitals: Period Temp Pulse Resp BP Sys/Valladares Pulse Ox Last 24 Hr 97.5 F-98.7 F 73-84 16-20 131-133/77-81 91-97 Result/EKG - Labs CBC & BMP: 06/25/17 03:24 06/25/17 03:24 Labs: Laboratory Results - last 24 hr 06/21/17 06/25/17 06/25/17 13:06 03:24 03:24 WBC 9.8 RBC 3.66 L Hgb 11.0 L Hct 31.9 L MCV 87.2 MCH 30 MCHC 34.5 RDW 13.3 Plt Count 235 MPV 9.7 Neut % (Auto) 72.3 Lymph % (Auto) 11.3 L [place] % (Auto) 10.9 Eos % (Auto) 4.4 Baso % (Auto) 0.3 Neut # (Auto) 7.1 Lymph # (Auto) 1.1 L [place] # (Auto) 1.1 H Eos # (Auto) 0.4 Baso # (Auto) 0.0 Immature Gran % 0.8 Nucleated RBC % 0.0 Immature Gran # 0.08 Nucleated RBCs # 0.00 Immature Plt Fraction 0.0 Sodium 136 Potassium 4.1 Chloride 99 Carbon Dioxide 29 Anion Gap 12.1 BUN 16 Creatinine 0.80 GFR Calculation 101 BUN/Creatinine Ratio 20.00 Glucose 82 POC Glucose Calculated Osmolality 271.0 L Calcium 8.0 L Magnesium 2.0 Aldolase 8.3 H 06/25/17 06/25/17 06/25/17 07:46 11:06 14:59 WBC RBC Hgb Hct MCV MCH MCHC RDW Plt Count MPV Neut % (Auto) Lymph % (Auto) [place] % (Auto) Eos % (Auto) Baso % (Auto) Neut # (Auto) Lymph # (Auto) [place] # (Auto) Eos # (Auto) Baso # (Auto) Immature Gran % Nucleated RBC % Immature Gran # Nucleated RBCs # Immature Plt Fraction Sodium Potassium Chloride Carbon Dioxide Anion Gap BUN Creatinine GFR Calculation BUN/Creatinine Ratio Glucose POC Glucose 104 121 H 172 H Calculated Osmolality Calcium Magnesium Aldolase
[2017-06-25] MEDS: CEFUROXIME 500 MG TABLET PO SCH (20:07)
[2017-06-25] MEDS: ATORVASTATIN 80 MG TABLET PO SCH (20:07)
[2017-06-26] MEDS: SACUBITRIL/VALSARTAN 49-51 MG TABLET PO SCH (08:13)
[2017-06-26] MEDS: CEFUROXIME 500 MG TABLET PO SCH (08:13)
[2017-06-26] MEDS: INSULIN LISPRO 100 UNIT/ML SUBCUT SCH ×2 (08:14→12:18)
[2017-06-26] MEDS: ASPIRIN EC 81 MG TABLET PO SCH (08:14)
[2017-06-26] MEDS: APIXABAN 5 MG TABLET PO SCH (08:14)
[2017-06-26] MEDS: FUROSEMIDE 40 MG TABLET PO SCH (08:14)
[2017-06-26] MEDS: METOPROLOL SUCCINATE XL 50 MG TABLET PO SCH (08:14)
--- NOTE | 2017-06-26 11:14 | Discharge Summary ---
Hospital Course - Hospital Course Hospital Course: 66 year old white male with a history of ischemic cardiomyopathy, with chronic systolic congestive heart failure based on ejection fraction 20-25%, status post AICD placement was admitted with hypotension and intermittent confusion. He denied any chest pain, shortness of breath. He usually follows with Dr. Singh. He was admitted to the hospitalist service, CT scan of the head was unremarkable he had leukocytosis. Neurology was consulted and he was started on several broad-spectrum antibiotics. He also had history of cannabis abuse. He also had a recent ICD placed a few weeks ago. Cardiology was following for the course of hospitalization. His mental status continued to improve, IV antibiotics has been discontinued, he is only on oral Ceftin. Due to his history of cannabis abuse and some psychiatric issues, he has been evaluated by [facility], and he has been accepted. Indications have been optimized and he is now in stable condition with discharge to [facility] today. Total discharge time 35 minutes. - Time spent with patient Time with patient DS: Greater than 30 minutes Diagnosis - Discharge Diagnosis (1) Altered mental status Status: Resolved (2) Congestive heart failure Status: Chronic Specialty Discharge - Follow Up or Referrals Discharge Plan - Discharge Data Disposition: Swing Bed, Hos Based, [facility] Condition at Discharge: Stable Discharge Diet: low salt diet Activity: resume usual activities as tolerated Hygiene: no restrictions Weight Bearing at Discharge: full weight bearing Driving: no restrictions - Discharge Medications New Cefuroxime Tab [Ceftin] 500 mg PO BID #14 tablet Digoxin Tab [Lanoxin Tab] 0.125 mg PO DAILY@1300 #30 tablet Sacubitril/Valsartan [Entresto 49 mg-51 mg Tablet] 0.5 tablet PO BID #60 tablet Continue metFORMIN [Glucophage] 500 mg PO BID W/MEALS Spironolactone [Aldactone] 25 mg PO QAM Atorvastatin [Lipitor] 80 mg PO BEDTIME Furosemide Tab [Lasix Tab] 40 mg PO DAILY Apixaban [Eliquis] 5 mg PO BID Amiodarone Tab [Cordarone Tab] 200 mg PO DAILY Carvedilol [Coreg] 6.25 mg PO BID #60 Nitroglycerin 0.4 mg SL DIRECTED PRN PRN Reason: Chest Pain Aspirin EC Tab 81 mg PO QAM Discontinued Lisinopril 10 mg PO DAILY - Follow Up or Referral Follow Up: Ar Singh MD [Physician] - 2 Weeks - Forms/Instructions Instructions: Heart Failure (DC), Pulmonary Edema (DC) Exam - Constitutional Vitals: Period Temp Pulse Resp BP Sys/Valladares Pulse Ox Last 24 Hr 97.5 F-98.5 F 73-84 17-20 131-142/81-85 93-97 Exam: General: No Acute Distress HEENT: Normocephalic, atraumatic, Extra ocular movements intact Neck: Supple, No JVD Chest: Clear to auscultation B/L CV: S1 + S2 audible without murmur, gallop or rub Abd: soft, NT, Non-distended, BS + Ext: No edema Skin: No purpura, bruising or rash Rheumatologic: No Joint deformities Neurologic: Strength 5/5 all extremities, no gross sensory deficits Discharge Results Procedures and tests throughout hospitalization: Pending Orders 06/21/17 11:21 Blood Culture Routine 06/21/17 13:06 Aldolase Routine Thiamin (Vitamin B1), WB Routine Labs on day of discharge: Labs from last 24 hours 06/26/17 06/25/17 06/25/17 07:16 19:00 14:59 POC Glucose 150 H 282 H 172 H Aldolase 06/25/17 06/21/17 11:06 13:06 POC Glucose 121 H Aldolase 8.3 H Preliminary micro results at discharge 06/21/17 11:21 Blood Culture - Preliminary Blood No growth at 3 days 06/21/17 11:21 Blood Culture - Preliminary Blood No growth at 3 days DS: Provider Date of admission: 06/17/17 01:07 Primary care physician: Neptali Whitman DO Attending physician on admission: Carroll Belcher MD Consults: 06/17/17 02:51 Consult to Physician [CONS] Routine Comment: CHF/ known to practice Consulting Provider: Cardiology - [facility] Consulting Provider Notified: Yes Consult to Specialist Group: Cardiology Person Notified: BIRGIT Date Notified: 06/17/17 Time Notified: 08:25 06/19/17 15:49 Consult to Physician [CONS] Routine Comment: possible new onset seizure Consulting Provider: Horace Daniels Consulting Provider Notified: Yes Consult to Specialist Group: Neurology Person Notified: KARLA Date Notified: 06/20/17 Time Notified: 08:30 06/20/17 14:29 Consult to Case Mgmt/Social Srvs [CONS] Routine Reason for Case Mgmt/Social Srvs: Discharge Planning Psychiatric Management 06/21/17 00:19 Consult to Physician [CONS] Routine Comment: testicular pain and swelling Consulting Provider: Joshua Silver Consulting Provider Notified: Yes Consult to Specialist Group: Urology Person Notified: TIMI Date Notified: 06/21/17 Time Notified: 08:45 Consult Notification Comment: ALREADY SEEN PT THIS AM 06/25/17 09:03 Consult to Dietitian [CONS] Routine Reason for Dietitian: Diet Instruction Consult Comment: PLEASE SEE NURSE (HARRIET) BEFORE SEEING PT. THANK YOU Discharging clinician: Wilver Avila MD
[2017-06-26 11:15] VITALS: BP 128/78
--- NOTE | 2017-06-26 11:59 | Cardiology Progress Note ---
Assessment and Plan - Time spent with patient Time spent with patient: Less than 30 minutes (1) Atrial flutter Status: Chronic Assessment and plan: See plan of care listed below. (2) Altered mental status Status: Resolved Assessment and plan: See plan of care listed below. (3) Hyponatremia Status: Acute Assessment and plan: See plan of care listed below. (4) CAD (coronary artery disease) Status: Chronic Assessment and plan: See plan of care listed below. Qualifiers: Coronary Disease-Associated Artery/Lesion type: [place] artery [place] vs. transplanted heart: [place] heart Associated angina: without angina Qualified Code(s): I25.10 - Atherosclerotic heart disease of [place] coronary artery without angina pectoris (5) Cardiomyopathy Status: Chronic Assessment and plan: See plan of care listed below. Qualifiers: Cardiomyopathy type: ischemic Qualified Code(s): I25.5 - Ischemic cardiomyopathy (6) Mitral regurgitation Status: Chronic Assessment and plan: See plan of care listed below. Qualifiers: Cardiac valve disease etiology: nonrheumatic Qualified Code(s): I34.0 - Nonrheumatic mitral (valve) insufficiency (7) Cannabis abuse Status: Chronic Assessment and plan: See plan of care listed below. (8) Diabetes mellitus Status: Chronic Assessment and plan: See plan of care listed below. Qualifiers: Diabetes mellitus type: type 2 (9) Hypertension Status: Chronic Assessment and plan: See plan of care listed below. Qualifiers: Hypertension type: essential hypertension Qualified Code(s): I10 - Essential (primary) hypertension Cardiology - PN: Subj Interval history: Custodial Maintenance Worker: Dr. Singh SUMMARY: Mr. Mcneil is a 66 y/o WM who presented with altered mental status and hyponatremia. He reports he was told to increase his Lasix recently. He has a history of hypertension, DM, status post CABG approximately 1997 (D[facility]ELL and vein grafts patent 02 May 2017) followed by Dr. Singh with severe ischemic cardiomyopathy (EF 20-25%) and severe mitral regurgitation with patent grafts ( diffuse distal/small vessel disease not amenable to percutaneous or surgical intervention) April 2017, when he had severe pulmonary hypertension and was referred to [place] for mitral valve clip, was not placed due to instability. He had an ICD placed 2 weeks ago. He has continued to have an altered mental status throughout hospitalization without clear etiology. After speaking with both of his sons, I have gathered that Mr. Mcneil has smoked marijuana since high school with the same friend. His son Eduar reports he usually smokes medical grade marijuana and cannot imagine that he would have done any differently this weekend; however, the patient's grand that he normally smokes with reports that he believes Mr. Mcneil found some old marijuana of his brothers and smoked that Saturday evening. Mr. Mcneil' brother has been for over a year. Repeat head CT on 06/20/17 showed no acute abnormality. 2016: Over the weekend, Mr. Mcneil made significant improvements but is now much more alert and oriented. From a cardiac standpoint, he has improved and is hemodynamically stable. He remains in atrial flutter with controlled rate. He is being discharged to [place]. Once he has been discharged , he will need to follow up with Dr. Singh in a couple of weeks. This patient can undergo cardioversion in the future and medical treatment as indicated by Dr. Singh. He also has a follow up appointment with Dr. Jean at [place] in the next week or so as well. He should continue his Eliquis 5mg po BID, aspirin, statin, aldactone, entresto, Coreg, digoxin as he has been taking during the hospitalization. IMPRESSION/PLAN: 1. ATRIAL FLUTTER: He remains in atrial flutter. Cardioversion could be considered as he has been on anticoagulation for approximately 3 weeks. Continue Eliquis 5 mg p.o. twice daily. He will follow up with Dr. Singh for further treatment. 2. ALTERED MENTAL STATUS: Possible etiology would include hyponatremia, illicit drug use, or prescription or [id number] drugs. He has continued to have an altered mental status throughout hospitalization without clear etiology, now resolved at the time of discharge. He will undergo further evaluation at [facility]. 3. HYPONATREMIA: Resolved. 4. CORONARY ARTERY DISEASE: Patent grafts per 05/27/17 [facility] with diffuse distal/ small vessel disease not amenable to percutaneous or surgical intervention. Continue aspirin, beta shayna, statin. 5. ISCHEMIC CARDIOMYOPATHY: S/p AICD implant approximately 3 weeks ago. Continue Coreg, statin, aspirin, entresto, digoxin at discharge. 6. MITRAL REGURGITATION: Mitral valve clip was not placed due to instability and he underwent placement of ICD approximately 2 weeks ago. 7. CANNABIS ABUSE: Urine drug screen this admission positive for cannabis. Patient reports using cannabis one day prior to admission. 8. DIABETES MELLITUS: He is on accuchecks and sliding scale insulin. 9. HYPERTENSION: Currently well controlled. Will continue to monitor and adjust accordingly. Exam (Progress Note) - Constitutional Vitals: Period Temp Pulse Resp BP Sys/Valladares Pulse Ox Last 24 Hr 97.5 F-98.5 F 73-84 17-20 128-142/78-85 93-95 Exam: General appearance: Appears well. Pleasant and cooperative. Overweight, no acute distress. Head exam: Present: normal inspection, normocephalic, atraumatic. Absent: hematoma, laceration Eye exam: Absent: conjunctival injection, periorbital swelling, scleral icterus , laceration to eyelids, jaundice Pupils: Present: PERRL. Absent: constricted, dilated, fixed, irregular, unequal ENT exam: Present: normal exam, normal external ear exam, mucous membranes moist. Neck exam: Present: normal inspection, midline trachea. Absent: masses, lymphadenopathy, tenderness, thyromegaly Respiratory exam: Present: clear to auscultation bilaterally. Absent: accessory muscle use, chest wall tenderness, rales, rhonchi, wheezing. Cardiovascular exam: Present: Irregular rate and rhythm. Systolic murmur. Absent : gallop, JVD, rubs GI/Abdominal exam: Present: normal bowel sounds, soft. Absent: distended, firm , hernia, mass, tenderness. Extremities exam: Present: Normal Gait, No Clubbing, No Cyanosis, Upper Extr. Pulses 2+, Lower Extr. Pulses 2+, No edema. Capillary refill less than 3 seconds. Musculoskeletal: Present: No Fluid Collection, No Pain, Normal Range of Motion Back exam: Present: normal inspection. Absent: muscle spasm, vertebral tenderness Neurological exam: Present: Alert and oriented x 3. Moves all extremities well without hemiparesis or paralysis. No resting or essential tremor Psychiatric exam: Present: Normal affect. Normal mood. Skin exam: Present: normal color, warm, dry, intact. Left chest wall pacemaker incision well approximated, s redness, edema, or drainage. Mild ecchymosis at site. Absent: cyanosis, diaphoretic, rash, urticaria Result/EKG - Labs CBC & BMP: 06/25/17 03:24 06/25/17 03:24 Lab Results: I have reviewed the past 24 hour labs Labs: Laboratory Results - last 24 hr 06/25/17 06/25/17 06/26/17 14:59 19:00 07:16 POC Glucose 172 H 282 H 150 H 06/26/17 11:04 POC Glucose 248 H - EKG EKG results: interpreted by me (atrial flutter) Quality Measures - VTE Contraindication to Pharmacological VTE Prophylaxis: Already on Theraputic Agent , No Prophylaxis Needed Specialty Discharge - Follow Up or Referrals Follow up with: Ar Singh MD [Physician] - 07/05/17 8:40 am
== END 2017-06-26 12:35 | disposition swing bed (61) | DRG 948 ==
LOC: N.ED 20:45 → SUATTDRO 06-17 01:07 → N.EDINP 06-17 01:53 → SUATTDRO 06-17 01:53 → N.ICU 06-17 02:41 → N.TELES 06-18 13:47 → N.ICU 06-18 13:57 → N.TELES 06-18 14:44 → N.ICU 06-19 16:27 → N.TELEN 06-23 14:33
PROVIDERS: ADMIT Hospitalist; ATTEND Hospitalist

== ENCOUNTER 2018-11-29 19:41 | Inpatient (IN) ==
[2018-11-29] MEDS ORDERED: SODIUM CHLORIDE 0.9% 500 ML IV STA (20:12)
[2018-11-29] MEDS ORDERED: ONDANSETRON 4 MG/2 ML VIAL IV STA (20:12)
[2018-11-29] MEDS ORDERED: PANTOPRAZOLE 40 MG VIAL IV STA (20:12)
[2018-11-29 20:22] LABS: Basophils % 0.1 % (0.0-0.8); Hematocrit 22.8 VOL% (42.0-52.0); Hemoglobin 7.1 GM/DL (14.0-18.0); Immature Granulocytes % 0.9 %; Immature Granulocytes Absolute 0.15 #; Lymphocytes # 0.7 10*3/uL (1.4-4.0); Lymphocytes % 4.1 % (21.2-54.2); Mean Corpuscular HGB Conc 31.1 GM/DL (32-36); Mean Corpuscular Hemoglobin 27 PG (27-34); Mean Platelet Volume 9.8 FL (9.6-12.0); Monocytes % 6.2 % (1.7-12.7); Neutrophils # 14.2 10*3/uL (1.4-7.4); Neutrophils % 88.7 % (38.7-73.9); Platelet Count 230 T/CUMM (130-400); Red Blood Count 2.65 MC/CUMM (3.8-5.5); Red Cell Distribution Width 18.1 % (9.3-17.3)
[2018-11-29 20:30] LABS: INR 1.5; PT Patient Result 15.9 SECS; Partial Thromboplastin Time 29.4 SECS (0-40)
[2018-11-29 20:34] LABS: Albumin 2.5 G/DL (3.4-5.0); Bilirubin,Total 0.7 MG/DL (0.2-1.0); CKMB % 6.3 %; Calcium 7.9 MG/DL (8.5-10.1); Osmolality,Calculated 272.1 MOS/KG (273-304); Total Protein 5.8 G/DL (6.4-8.3)
[2018-11-29 20:35] LABS: Troponin I 0.093 NG/ML (0.00-0.045)
[2018-11-29 21:31] LABS: Anisocytosis 1+; Lymphocytes 3 % (20-55); Microcytosis Slight; Segmented Neutrophils 93 % (50-85); Total Cells Counted 100
[2018-11-29 21:32] LABS: Polychromasia Slight
[2018-11-29 21:33] LABS: Ovalocytes Slight
[2018-11-29 21:34] LABS: Spherocytes Few
[2018-11-29 21:35] LABS: Poikilocytosis Few
[2018-11-29 21:40] LABS: Burr Cells Slight; Schistocytes Slight
[2018-11-29 21:41] LABS: Platelet Estimate Normal
[2018-11-29] MEDS ORDERED: SODIUM CHLORIDE 0.9% 1,000 ML IV PRN (21:59)
[2018-11-29] MEDS ORDERED: ALBUTEROL 2.5 MG/3 ML NEB RESP TX PRN (22:08)
[2018-11-29] MEDS ORDERED: ONDANSETRON 4 MG/2 ML VIAL IV PRN (22:08)
[2018-11-29] MEDS ORDERED: MORPHINE 4 MG/1 ML VIAL IV PRN (22:08)
[2018-11-29] MEDS ORDERED: GLUCAGON 1 MG VIAL IM PRN (23:20)
[2018-11-29] MEDS ORDERED: DEXTROSE 50% 25 GM/50 ML SYRINGE IV PRN (23:20)
[2018-11-29] MEDS: PANTOPRAZOLE INJ 200 MG in SODIUM CHLORIDE 0.9% 250 ML IV SCH (23:36)
[2018-11-29] MEDS: metroNIDAZOLE INJ 500 MG in PREMIX 1 EACH IV SCH (23:58)
[2018-11-30] MEDS: cefTRIAXone 1,000 MG in SYRINGE 1 EACH IV SCH ×2 (01:25→21:34)
[2018-11-30] MEDS: INSULIN REGULAR 100 UNIT/ML SUBCUT SCH ×4 (02:06→17:20)
[2018-11-30 05:16] LABS: Apearance,Urine CLEAR (Clear); Bilirubin,Urine Negative (Negative); Blood, Urine Negative (Negative); Glucose,Urine (UA) 50 mg/dL (Negative); Hyaline Casts,Urine 4 /LPF (0-3); Ketones,Urine Negative (Negative); Nitrite,Urine Negative (Negative); Protein,Urine Negative; RBC,Urine <1 /HPF (0-4); Squamous Epithelial Cell,Urine Occasional /HPF (0-10); Urine Color Yellow (Yellow); Urine Specific Gravity 1.013 (1.001-1.035); WBC,Urine 1 /HPF (0-6)
[2018-11-30] MEDS: SODIUM CHLORIDE 0.9% 1,000 ML IV SCH ×3 (08:10→21:15)
[2018-11-30] MEDS ORDERED: NITROGLYCERIN SL 0.4 MG TABLET SL PRN (08:14)
[2018-11-30] MEDS: metroNIDAZOLE INJ 500 MG in PREMIX 1 EACH IV SCH ×3 (09:02→21:34)
[2018-11-30] MEDS: CARVEDILOL 6.25 MG TABLET PO SCH ×2 (09:03→18:40)
[2018-11-30] MEDS: AMIODARONE 200 MG TABLET PO SCH (09:03)
[2018-11-30 09:08] LABS: Basophils % 0.1 % (0.0-0.8); Eosinophils % 0.1 % (0.00-10.9); Hematocrit 28.2 VOL% (42.0-52.0); Hemoglobin 9.1 GM/DL (14.0-18.0); Immature Granulocytes % 0.7 %; Immature Granulocytes Absolute 0.11 #; Lymphocytes # 0.6 10*3/uL (1.4-4.0); Lymphocytes % 3.5 % (21.2-54.2); Mean Corpuscular HGB Conc 32.3 GM/DL (32-36); Mean Corpuscular Hemoglobin 28 PG (27-34); Mean Corpuscular Volume 85.5 FL (87-102); Mean Platelet Volume 9.7 FL (9.6-12.0); Monocytes # 1.5 10*3/uL (0.11-0.8); Monocytes % 8.8 % (1.7-12.7); NRBC # 0.02 10*3/uL; Neutrophils # 14.3 10*3/uL (1.4-7.4); Neutrophils % 86.8 % (38.7-73.9); Platelet Count 177 T/CUMM (130-400); Red Cell Distribution Width 15.9 % (9.3-17.3); White Blood Count 16.5 T/CUMM (4-12)
[2018-11-30 09:39] LABS: Calcium 7.5 MG/DL (8.5-10.1); Osmolality,Calculated 268.9 MOS/KG (273-304); Potassium 5.3 MMOL/L (3.5-5.1)
[2018-11-30 12:22] LABS: Hypochromasia 1+; Lymphocytes 3 % (20-55); Microcytosis 1+; Segmented Neutrophils 92 % (50-85); Total Cells Counted 100
[2018-11-30 12:23] LABS: Ovalocytes Few; Platelet Estimate Adequate; Polychromasia Slight; Schistocytes Slight
[2018-11-30 15:14] LABS: Hematocrit 24.8 VOL% (42.0-52.0); Hemoglobin 7.8 GM/DL (14.0-18.0)
[2018-11-30] MEDS ORDERED: SODIUM CHLORIDE 0.9% 1,000 ML IV PRN (15:42)
[2018-11-30] MEDS: ATORVASTATIN 80 MG TABLET PO SCH (21:34)
[2018-12-01] MEDS: PANTOPRAZOLE INJ 200 MG in SODIUM CHLORIDE 0.9% 250 ML IV SCH (00:04)
[2018-12-01 00:55] LABS: Hematocrit 31.7 VOL% (42.0-52.0); Hemoglobin 10.4 GM/DL (14.0-18.0)
[2018-12-01 01:06] LABS: Calcium 7.5 MG/DL (8.5-10.1); Osmolality,Calculated 274.1 MOS/KG (273-304); Potassium 4.9 MMOL/L (3.5-5.1)
[2018-12-01] MEDS: INSULIN REGULAR 100 UNIT/ML SUBCUT SCH ×4 (02:19→17:38)
[2018-12-01 05:36] LABS: Basophils % 0.2 % (0.0-0.8); Eosinophils # 0.1 10*3/uL (0.0-0.87); Eosinophils % 0.5 % (0.00-10.9); Hematocrit 32.4 VOL% (42.0-52.0); Hemoglobin 10.5 GM/DL (14.0-18.0); Immature Granulocytes % 0.7 %; Immature Granulocytes Absolute 0.09 #; Lymphocytes # 0.5 10*3/uL (1.4-4.0); Lymphocytes % 3.4 % (21.2-54.2); Mean Corpuscular HGB Conc 32.4 GM/DL (32-36); Mean Corpuscular Hemoglobin 28 PG (27-34); Mean Corpuscular Volume 85.7 FL (87-102); Mean Platelet Volume 9.8 FL (9.6-12.0); Monocytes # 1.2 10*3/uL (0.11-0.8); Monocytes % 9.5 % (1.7-12.7); Neutrophils # 11.2 10*3/uL (1.4-7.4); Neutrophils % 85.7 % (38.7-73.9); Platelet Count 166 T/CUMM (130-400); Red Blood Count 3.78 MC/CUMM (3.8-5.5); Red Cell Distribution Width 15.9 % (9.3-17.3); White Blood Count 13.1 T/CUMM (4-12)
[2018-12-01] MEDS: SODIUM CHLORIDE 0.9% 1,000 ML IV SCH ×2 (05:41→17:47)
[2018-12-01 06:06] LABS: Anisocytosis 1+; Band Neutrophils 2 % (0-10); Lymphocytes 1 % (20-55); Macrocytosis Slight; Platelet Estimate Normal; Segmented Neutrophils 84 % (50-85); Total Cells Counted 100
[2018-12-01] MEDS: metroNIDAZOLE INJ 500 MG in PREMIX 1 EACH IV SCH ×3 (06:06→21:30)
[2018-12-01] MEDS: AMIODARONE 200 MG TABLET PO SCH (08:22)
[2018-12-01] MEDS: CARVEDILOL 6.25 MG TABLET PO SCH ×2 (08:22→17:38)
[2018-12-01 08:50] LABS: Hematocrit 32.7 VOL% (42.0-52.0); Hemoglobin 10.5 GM/DL (14.0-18.0)
[2018-12-01] MEDS ORDERED: ACETAMINOPHEN 500 MG TABLET PO PRN (09:28)
[2018-12-01] MEDS ORDERED: ACETAMINOPHEN 500 MG TABLET PO SCH (12:00)
[2018-12-01 14:04] LABS: Hematocrit 30.9 VOL% (42.0-52.0); Hemoglobin 9.9 GM/DL (14.0-18.0)
[2018-12-01] MEDS: cefTRIAXone 1,000 MG in SYRINGE 1 EACH IV SCH (21:30)
[2018-12-01] MEDS: ATORVASTATIN 80 MG TABLET PO SCH (21:30)
[2018-12-02] MEDS: PANTOPRAZOLE INJ 200 MG in SODIUM CHLORIDE 0.9% 250 ML IV SCH (02:11)
[2018-12-02] MEDS: INSULIN REGULAR 100 UNIT/ML SUBCUT SCH ×4 (02:12→18:13)
[2018-12-02] MEDS: SODIUM CHLORIDE 0.9% 1,000 ML IV SCH ×2 (02:13→03:30)
[2018-12-02] MEDS: metroNIDAZOLE INJ 500 MG in PREMIX 1 EACH IV SCH ×3 (05:44→21:40)
[2018-12-02 06:02] LABS: Basophils % 0.2 % (0.0-0.8); Eosinophils # 0.1 10*3/uL (0.0-0.87); Eosinophils % 0.7 % (0.00-10.9); Hematocrit 33.4 VOL% (42.0-52.0); Hemoglobin 10.5 GM/DL (14.0-18.0); Immature Granulocytes % 0.5 %; Immature Granulocytes Absolute 0.04 #; Lymphocytes # 0.7 10*3/uL (1.4-4.0); Lymphocytes % 7.4 % (21.2-54.2); Mean Corpuscular HGB Conc 31.4 GM/DL (32-36); Mean Corpuscular Hemoglobin 28 PG (27-34); Mean Corpuscular Volume 87.4 FL (87-102); Monocytes # 1.3 10*3/uL (0.11-0.8); Monocytes % 14.7 % (1.7-12.7); Neutrophils # 6.7 10*3/uL (1.4-7.4); Neutrophils % 76.5 % (38.7-73.9); Platelet Count 190 T/CUMM (130-400); Red Blood Count 3.82 MC/CUMM (3.8-5.5); Red Cell Distribution Width 16.5 % (9.3-17.3); White Blood Count 8.8 T/CUMM (4-12)
[2018-12-02 06:03] LABS: Calcium 7.8 MG/DL (8.5-10.1); Osmolality,Calculated 269.1 MOS/KG (273-304); Potassium 4.5 MMOL/L (3.5-5.1)
[2018-12-02] MEDS: CARVEDILOL 6.25 MG TABLET PO SCH ×2 (09:15→16:53)
[2018-12-02] MEDS: AMIODARONE 200 MG TABLET PO SCH (09:15)
[2018-12-02] MEDS ORDERED: DEXTROSE 50% 25 GM/50 ML SYRINGE IV PRN (12:01)
[2018-12-02] MEDS ORDERED: GLUCAGON 1 MG VIAL IM PRN (12:01)
[2018-12-02] MEDS: ATORVASTATIN 80 MG TABLET PO SCH (21:31)
[2018-12-02] MEDS: cefTRIAXone 1,000 MG in SYRINGE 1 EACH IV SCH (21:32)
[2018-12-03] MEDS: INSULIN REGULAR 100 UNIT/ML SUBCUT SCH ×2 (00:07→05:55)
[2018-12-03] MEDS: SODIUM CHLORIDE 0.9% 1,000 ML IV SCH ×2 (01:55)
[2018-12-03] MEDS: metroNIDAZOLE INJ 500 MG in PREMIX 1 EACH IV SCH (06:00)
[2018-12-03 08:16] LABS: Basophils % 0.3 % (0.0-0.8); Eosinophils % 0.2 % (0.00-10.9); Hematocrit 37.8 VOL% (42.0-52.0); Hemoglobin 11.8 GM/DL (14.0-18.0); Immature Granulocytes % 0.4 %; Immature Granulocytes Absolute 0.04 #; Lymphocytes # 0.8 10*3/uL (1.4-4.0); Lymphocytes % 8.6 % (21.2-54.2); Mean Corpuscular HGB Conc 31.2 GM/DL (32-36); Mean Corpuscular Hemoglobin 28 PG (27-34); Mean Corpuscular Volume 89.8 FL (87-102); Mean Platelet Volume 9.4 FL (9.6-12.0); Monocytes % 10.5 % (1.7-12.7); Neutrophils # 7.3 10*3/uL (1.4-7.4); Platelet Count 262 T/CUMM (130-400); Red Blood Count 4.21 MC/CUMM (3.8-5.5); Red Cell Distribution Width 16.8 % (9.3-17.3); White Blood Count 9.1 T/CUMM (4-12)
[2018-12-03 08:32] LABS: Osmolality,Calculated 268.1 MOS/KG (273-304); Potassium 4.6 MMOL/L (3.5-5.1)
[2018-12-03] MEDS: AMIODARONE 200 MG TABLET PO SCH (08:39)
[2018-12-03] MEDS: CARVEDILOL 6.25 MG TABLET PO SCH (08:39)
[2018-12-03] MEDS ORDERED: PANTOPRAZOLE 40 MG VIAL IV SCH (09:00)
[2018-12-03 09:10] VITALS: BP 129/70
== END 2018-12-03 10:29 | disposition home health service (06) | DRG 378 ==
LOC: EDBD → EDUNIT# → N.ED 19:41 → N.EDINP 21:57 → SUATTDRO 21:57 → N.CC 22:36 → N.4E 12-02 10:21
PROVIDERS: ADMIT Hospitalist; ATTEND Internal Medicine

== ENCOUNTER 2019-03-01 15:15 | Inpatient (IN) ==
[2019-03-01] MEDS ORDERED: PROMETHAZINE 25 MG/1 ML VIAL IM PRN (18:10)
[2019-03-01] MEDS ORDERED: ONDANSETRON 4 MG/2 ML VIAL IV PRN (18:10)
[2019-03-01] MEDS ORDERED: DEXTROSE 50% 25 GM/50 ML VIAL IV PRN (18:16)
[2019-03-01] MEDS ORDERED: GLUCAGON 1 MG VIAL IM PRN (18:16)
[2019-03-01] MEDS ORDERED: FAMOTIDINE 20 MG/2 ML VIAL IV SCH (18:30)
[2019-03-01] MEDS ORDERED: SODIUM CHLORIDE 0.9% 1,000 ML IV SCH (18:30)
[2019-03-01] MEDS ORDERED: SODIUM CHLORIDE 0.9% 1,000 ML IV PRN (18:41)
[2019-03-01 19:16] LABS: Basophils % 0.2 % (0.0-0.8); Eosinophils # 0.1 10*3/uL (0.0-0.87); Hematocrit 20.4 VOL% (42.0-52.0); Immature Granulocytes % 0.7 %; Immature Granulocytes Absolute 0.08 #; Lymphocytes # 1.6 10*3/uL (1.4-4.0); Lymphocytes % 14.2 % (21.2-54.2); Mean Corpuscular HGB Conc 27.9 GM/DL (32-36); Mean Corpuscular Volume 79.1 FL (87-102); Mean Platelet Volume 9.3 FL (9.6-12.0); Monocytes % 14.4 % (1.7-12.7); NRBC # 0.08 10*3/uL; Neutrophils % 69.5 % (38.7-73.9); Platelet Count 319 T/CUMM (130-400); Red Blood Count 2.58 MC/CUMM (3.8-5.5); Red Cell Distribution Width 19.4 % (9.3-17.3); White Blood Count 11.6 T/CUMM (4-12)
[2019-03-01 19:20] LABS: Hemoglobin 5.7 GM/DL (14.0-18.0)
[2019-03-01 19:34] LABS: Anisocytosis 1+; Hypochromasia 2+
[2019-03-01 19:35] LABS: Elliptocytes Few; Platelet Estimate Adequate; Polychromasia 1+; Schistocytes Few
[2019-03-01 19:36] LABS: Target Cells Few
[2019-03-01 19:41] LABS: % Iron Saturation 2.5 % (18-50); Ferritin 6.2 ng/ml (26-388)
[2019-03-01 19:42] LABS: Albumin 3.3 G/DL (3.4-5.0); Bilirubin,Total 0.5 MG/DL (0.2-1.0); Calcium 7.9 MG/DL (8.5-10.1); Osmolality,Calculated 276.1 MOS/KG (273-304); Thyroid Stimulating Hormone 0.962 uIU/ml (0.358-3.74); Total Protein 6.2 G/DL (6.4-8.3)
[2019-03-01] MEDS ORDERED: FUROSEMIDE 20 MG/2 ML VIAL IV ONE (20:02)
[2019-03-01] MEDS ORDERED: PANTOPRAZOLE 40 MG TABLET PO SCH (21:00)
[2019-03-01] MEDS: INSULIN LISPRO 100 UNIT/ML SUBCUT SCH (21:05)
[2019-03-01] MEDS: ATORVASTATIN 80 MG TABLET PO SCH (21:06)
[2019-03-01 21:48] LABS: Apearance,Urine CLEAR (Clear); Bilirubin,Urine Negative (Negative); Blood, Urine Negative (Negative); Glucose,Urine (UA) 50 mg/dL (Negative); Hyaline Casts,Urine 3 /LPF (0-3); Ketones,Urine Negative (Negative); Mucus,Urine Occasional /LPF (Occasional); Nitrite,Urine Negative (Negative); Protein,Urine Negative; RBC,Urine <1 /HPF (0-4); Squamous Epithelial Cell,Urine Occasional /HPF (0-10); Urine Color Yellow (Yellow); Urine Specific Gravity 1.012 (1.001-1.035); Urine Urobilinogen < 2.0 EU/DL (0.2-1.0); WBC,Urine <1 /HPF (0-6)
[2019-03-02 05:58] LABS: Basophils % 0.2 % (0.0-0.8); Eosinophils # 0.1 10*3/uL (0.0-0.87); Eosinophils % 1.2 % (0.00-10.9); Hematocrit 26.4 VOL% (42.0-52.0); Hemoglobin 7.8 GM/DL (14.0-18.0); Immature Granulocytes % 0.8 %; Immature Granulocytes Absolute 0.07 #; Lymphocytes # 1.3 10*3/uL (1.4-4.0); Lymphocytes % 14.1 % (21.2-54.2); Mean Corpuscular HGB Conc 29.5 GM/DL (32-36); Mean Corpuscular Volume 79.3 FL (87-102); Mean Platelet Volume 9.3 FL (9.6-12.0); Monocytes % 13.7 % (1.7-12.7); NRBC # 0.05 10*3/uL; Platelet Count 333 T/CUMM (130-400); Red Blood Count 3.33 MC/CUMM (3.8-5.5); Red Cell Distribution Width 19.1 % (9.3-17.3); White Blood Count 8.9 T/CUMM (4-12)
[2019-03-02 06:12] LABS: Calcium 8.7 MG/DL (8.5-10.1); Osmolality,Calculated 275.8 MOS/KG (273-304)
[2019-03-02 06:18] LABS: Risk Ratio 1.83
[2019-03-02] MEDS: INSULIN LISPRO 100 UNIT/ML SUBCUT SCH ×4 (08:30→23:22)
[2019-03-02] MEDS ORDERED: PANTOPRAZOLE 40 MG VIAL IV SCH (09:00)
[2019-03-02] MEDS ORDERED: SODIUM CHLORIDE 0.9% 1,000 ML IV PRN (10:19)
[2019-03-02] MEDS ORDERED: DEXTROSE 50% 25 GM/50 ML VIAL IV PRN (10:57)
[2019-03-02] MEDS ORDERED: GLUCAGON 1 MG VIAL IM PRN (10:57)
[2019-03-02] MEDS: AMIODARONE 200 MG TABLET PO SCH (12:04)
[2019-03-02 12:25] LABS: Hematocrit 26.8 VOL% (42.0-52.0)
[2019-03-02] MEDS: FUROSEMIDE 40 MG/4 ML VIAL IV SCH (20:24)
[2019-03-02] MEDS: ATORVASTATIN 80 MG TABLET PO SCH (20:24)
[2019-03-02] MEDS: PANTOPRAZOLE 40 MG TABLET PO SCH (20:24)
[2019-03-02 21:11] LABS: Hematocrit 32.9 VOL% (42.0-52.0)
[2019-03-03] MEDS: ACETAMINOPHEN 325 MG TABLET PO PRN ×2 (05:18→16:07)
[2019-03-03 05:25] LABS: Basophils % 0.3 % (0.0-0.8); Eosinophils # 0.2 10*3/uL (0.0-0.87); Eosinophils % 1.9 % (0.00-10.9); Hematocrit 33.4 VOL% (42.0-52.0); Hemoglobin 10.3 GM/DL (14.0-18.0); Immature Granulocytes % 0.8 %; Immature Granulocytes Absolute 0.08 #; Lymphocytes # 1.3 10*3/uL (1.4-4.0); Lymphocytes % 13.2 % (21.2-54.2); Mean Corpuscular HGB Conc 30.8 GM/DL (32-36); Mean Corpuscular Volume 78.4 FL (87-102); Mean Platelet Volume 9.6 FL (9.6-12.0); Monocytes % 15.3 % (1.7-12.7); NRBC # 0.04 10*3/uL; Neutrophils % 68.5 % (38.7-73.9); Platelet Count 373 T/CUMM (130-400); Red Blood Count 4.26 MC/CUMM (3.8-5.5); Red Cell Distribution Width 18.5 % (9.3-17.3); White Blood Count 9.5 T/CUMM (4-12)
[2019-03-03 05:46] LABS: Calcium 9.1 MG/DL (8.5-10.1); Osmolality,Calculated 272.2 MOS/KG (273-304)
[2019-03-03] MEDS ORDERED: FUROSEMIDE 40 MG TABLET PO SCH (09:00)
[2019-03-03] MEDS ORDERED: ETOMIDATE 20 MG/10 ML VIAL IV ONE (09:00)
[2019-03-03] MEDS ORDERED: LIDOCAINE 2% 5 ML VIAL ONE (09:00)
[2019-03-03] MEDS ORDERED: PROPOFOL 200 MG/20 ML VIAL IV ONE (09:00)
[2019-03-03] MEDS: INSULIN LISPRO 100 UNIT/ML SUBCUT SCH ×3 (10:00→17:09)
[2019-03-03] MEDS: AMIODARONE 200 MG TABLET PO SCH (10:01)
[2019-03-03] MEDS: PANTOPRAZOLE 40 MG TABLET PO SCH ×2 (10:01→21:22)
[2019-03-03] MEDS: FUROSEMIDE 40 MG/4 ML VIAL IV SCH ×2 (10:01→16:01)
[2019-03-03] MEDS: SPIRONOLACTONE 25 MG TABLET PO SCH (10:01)
[2019-03-03] MEDS: ATORVASTATIN 80 MG TABLET PO SCH (21:22)
[2019-03-04 05:48] LABS: Basophils % 0.4 % (0.0-0.8); Eosinophils # 0.2 10*3/uL (0.0-0.87); Eosinophils % 1.9 % (0.00-10.9); Hematocrit 35.6 VOL% (42.0-52.0); Hemoglobin 11.1 GM/DL (14.0-18.0); Immature Granulocytes % 0.6 %; Immature Granulocytes Absolute 0.07 #; Lymphocytes # 1.4 10*3/uL (1.4-4.0); Lymphocytes % 12.4 % (21.2-54.2); Mean Corpuscular HGB Conc 31.2 GM/DL (32-36); Mean Corpuscular Volume 77.4 FL (87-102); Mean Platelet Volume 9.2 FL (9.6-12.0); Monocytes % 15.1 % (1.7-12.7); NRBC # 0.02 10*3/uL; Neutrophils % 69.6 % (38.7-73.9); Platelet Count 399 T/CUMM (130-400); Red Cell Distribution Width 18.8 % (9.3-17.3); White Blood Count 11.3 T/CUMM (4-12)
[2019-03-04 06:06] LABS: Osmolality,Calculated 273.5 MOS/KG (273-304)
[2019-03-04] MEDS: INSULIN LISPRO 100 UNIT/ML SUBCUT SCH ×3 (07:33→10:38)
[2019-03-04] MEDS ORDERED: LACTATED RINGERS 1,000 ML IV SCH (08:00)
[2019-03-04] MEDS: SPIRONOLACTONE 25 MG TABLET PO SCH (08:33)
[2019-03-04] MEDS: AMIODARONE 200 MG TABLET PO SCH (08:33)
[2019-03-04] MEDS: FUROSEMIDE 40 MG/4 ML VIAL IV SCH (08:33)
[2019-03-04] MEDS: PANTOPRAZOLE 40 MG TABLET PO SCH (08:34)
[2019-03-04 12:10] VITALS: BP 125/74
== END 2019-03-04 14:45 | disposition home or self-care (01) | DRG 813 ==
LOC: SUATTDRO 16:53 → N.5E 16:53
PROVIDERS: ADMIT Internal Medicine; ATTEND Internal Medicine